=== PATIENT | male | born 1945 | race Two or more races ===

== ENCOUNTER 2024-09-01 14:31 | Inpatient (IN) | payer MEDICARE, SELFPAY ==
[2024-09-01] VITALS (20 sets, daily range): BP systolic 93–145; BP diastolic 53–81; PULSE 88–101; RESP 17–98; TEMP 36.8–37.8; O2SAT 93–99; BMI 28.1; BMI 27.8
--- NOTE | 2024-09-01 14:40 | PC.NURSE ---
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
--- NOTE | 2024-09-01 15:07 | XR_ITS ---
Examination: CT abdomen and pelvis without contrast. Coronal 3-D reconstructions. Sagittal 2-D reconstructions. Date and time of exam:September 01, 2024 1405 hours INDICATION: Fever abdominal pain today, renal failure patient undergoing peritoneal dialysis CTDI: vol (mGy): 8.75 DLP: (mGycm): 559 Technique: Axial images of the abdomen have been obtained, 3 mm slice thickness Intravenous contrast material has not been administered. Low dose protocols were performed. One or more of the following dose reduction techniques were used; automated exposure control, adjustment of the mA and/or KV according to patient size, use of iterative reconstruction technique. Findings: Moderate free fluid in the pelvis Liver is irregular in contour Spleen is not enlarged No gallstones No pancreatic mass Atrophic [place] kidneys No bowel obstruction Peritoneal dialysis catheter in the pelvis satisfactory position Contracted urinary bladder Transverse prostate dimension 3.9 cm IMPRESSION: Primary hepatocellular disease versus cirrhosis Atrophic [place] kidneys Moderate free fluid in the pelvis, likely secondary to the patient's peritoneal dialysis catheter No abdominal or pelvic abscess
--- NOTE | 2024-09-01 15:23 | PC.NURSE ---
DIALYSIS NURSING TALKING TO ON PHONE
--- NOTE | 2024-09-01 15:34 | PC.NURSE ---
PT MAKES VERY LITTLE URINE ESRD PROVIDED URINAL UA ORDERED
--- NOTE | 2024-09-01 15:41 | PC.NURSE ---
DIALYSIS NURSE IN WITH PATIENT
[2024-09-01 15:44] LABS: Lactate (Lactic Acid) 3.5 mMol/L (0.4-2.0)
[2024-09-01 15:45] LABS: Basophils % (Auto) 0 % (0-2.5); Eosinophils % (Auto) 0 % (0-10); Hematocrit 34.8 % (41.0-53.0); Hemoglobin 11.8 g/dL (13.5-16.0); Immature Granulocytes % (Auto) 0 % (0-0); Immature Granulocytes Auto 0.04 Thou/mm3 (0.00-0.00); Lymphocytes % (Auto) 10 % (10-50); Mean Corpuscular HGB Conc 33.9 g/dl (31.0-37.0); Mean Corpuscular Hemoglobin 28.4 pg (25.0-35.0); Mean Corpuscular Volume 84 fL (80-100); Monocytes # (Auto) 0.5 Thou/mm3 (0.0-0.8); Monocytes % (Auto) 5 % (0-12); Neutrophils # (Auto) 8.7 Thou/mm3 (1.8-7.7); Neutrophils % (Auto) 84 % (37-80); Nucleated Red Blood Cell % 0 /100 WBC (0); Platelet Count 152 Thou/mm3 (140-440); RDW Standard Deviation 43.8 fL (35.1-43.9); Red Blood Count 4.15 Miln/mm3 (4.50-5.90); White Blood Count 10.3 Thou/mm3 (3.8-10.6)
[2024-09-01 16:02] LABS: Partial Thromboplastin Time 26.2 Seconds (22.0-36.0); Prothrombin Time 11.2 Seconds (9.0-12.2)
--- NOTE | 2024-09-01 16:05 | PC.NURSE ---
DID NOT GET TEMP AT [address] WILL TAKE WHEN PT RETURNS
[2024-09-01 16:17] LABS: Alanine Aminotransferase 23 U/L (10-49); Albumin, Serum 3.3 gm/dL (3.4-4.8); Albumin/Globulin Ratio 0.9 (1.2-2.2); Alkaline Phosphatase 152 U/L (46-116); Anion Gap 11 (7-16); Aspartate Amino Transferase 24 U/L (0-34); BUN/Creatinine Ratio 4 Ratio (12-20); Bilirubin,Total 0.9 mg/dL (0.3-1.2); Blood Urea Nitrogen 30 mg/dL (9-23); Calcium 8.7 mg/dL (8.3-10.6); Calcium (Corrected) 9.3 mg/dL (8.5-10.1); Carbon Dioxide 25.6 mMol/L (20.0-31.0); Chloride 95 mMol/L (98-107); Creatinine (Component) 6.9 mg/dL (0.6-1.3); Estimated Creatinine Clearance 9.3 mL/min (>60); Globulin 3.5 gm/dL (2.3-3.5); Glucose 143 mg/dL (74-106); Osmolality,Calculated 272 (275-295); Potassium 4.9 mMol/L (3.4-5.1); Procalcitonin 2.14 ng/ml (0.0-0.49); Sodium 132 mMol/L (136-145); Total Protein 6.8 gm/dL (5.7-8.2); eGFR 8 See Note
[2024-09-01 16:31] LABS: Peritoneal Fluid WBC 14652 /cmm
[2024-09-01 16:42] LABS: Peritoneal Fluid Mononuclear 7 %; Peritoneal Fluid Polynuclear 93 %; RBC,Peritoneal Fluid 2000 /cmm
[2024-09-01 16:43] LABS: Peritoneal Fluid Appearance Cloudy; Peritoneal Fluid Color Colorless
[2024-09-01 16:49] LABS: Albumin, Peritoneal Fluid < 1.0 gm/dL; Amylase,Peritoneal Fluid < 20 IU/L; Glucose,Peritoneal Fluid 133 mg/dL; LDH,Peritoneal Fluid 55 IU/L; Protein Total,Peritoneal Fluid < 2 g/dL
--- NOTE | 2024-09-01 17:03 | PD.EDADULT ---
ED General RME/HPI General Chief complaint: Fever Stated complaint: FEVER/ WEAKNESS Time Seen by Provider: 09/01/24 14:58 Arrival date/time: 09/01/24 14:31 RME / HPI RME / HPI narrative: 78-year-old gentleman with a history of end-stage renal disease on peritoneal dialysis who presents with fever and abdominal pain starting yesterday evening. He denies nausea vomiting or diarrhea. He denies sore throat, cough, or shortness of breath. Related Data Home Medications ?Medication ?Instructions ?Recorded ?Confirmed atorvastatin 10 mg tablet 10 mg PO QDAY 09/11/19 09/01/24 gabapentin 300 mg capsule 300 mg PO TID 09/11/19 09/01/24 insulin aspart U-100 100 unit/mL 1 sliding scale dose subcut 09/11/19 09/01/24 subcutaneous solution (Novolog USEASDIRECTD U-100 Insulin aspart) omeprazole 20 mg capsule,delayed 40 mg PO QDAY 09/11/19 09/01/24 release calcium acetate(phosphat bind) 667 1,334 mg PO TIDWMEAL 09/01/24 09/01/24 mg capsule carvedilol 6.25 mg tablet 6.25 mg PO Q12H 09/01/24 09/01/24 losartan 50 mg tablet (Cozaar) 50 mg PO QDAY 09/01/24 09/01/24 multi-vitamin no minerals 60 - 150 tab PO DAILY 09/01/24 09/01/24 tamsulosin 0.4 mg capsule (Flomax) 0.4 mg PO QDAY 09/01/24 09/01/24 tramadol 50 mg tablet 50 mg PO Q12H 09/01/24 09/01/24 Allergies Allergy/AdvReac Type Severity Reaction Status Date / Time No Known Allergies Allergy Verified 09/01/24 14:42 Review of Systems Review of Systems Systems Reviewed: All systems reviewed, normal except as documented ED Exam Narrative Physical exam: GENERAL APPEARANCE: AxOx4, generally well-appearing, no acute distress. HEENT: NC, AT. MMM. EOMI, clear conjunctiva, oropharynx clear. NECK: Supple without lymphadenopathy. No stiffness or restricted ROM. HEART: Normal rate and regular rhythm, normal S1/S1, no m/r/g LUNGS: CTAB, moving air well. No crackles or wheezes are heard. ABDOMEN: Soft, protuberant, distended, warm to touch with a mid abdominal peritoneal dialysis catheter that appears clean dry and intact, there is no dressing over the stoma, good bowel sounds heard. BACK: No midline C/T/L spine pain or deformity, No CVAT, no obvious deformity. EXTREMITIES: Without cyanosis, clubbing or edema. MUSCULOSKELETAL: FROM of all major joints, no chest tenderness NEUROLOGICAL: Grossly nonfocal. Alert and oriented, moving all 4 extremities. CN not formally tested but appear grossly intact. Observed to ambulate with normal gait. Skin: Warm and dry without any rash. Course Quality Measures none Orders Category Date Time Status Bedside COVID-19 Antigen Test NOW Care 09/01/24 16:51 Active Bedside Influenza A&B Antigen Test NOW Care 09/01/24 16:51 Active COVID-19 Screening Questionnaire NOW Care 09/01/24 17:06 Active Decision to Admit X1 Care 09/01/24 17:06 Active Miscellaneous Nursing Order NOW Care 09/01/24 15:[address] abdomen pelvis wo con Stat Exams 09/01/24 15:07 Completed Albumin, Peritoneal Fluid Routine Lab 09/01/24 15:54 Completed Amylase,Peritoneal Fluid Routine Lab 09/01/24 15:54 Completed Blood Culture (Lab) Stat Lab 09/01/24 17:06 Ordered Body Fld Cult w Caty & Gram St Routine Lab 09/01/24 15:54 Received CBC Stat Lab 09/01/24 15:30 Completed CMP [Comprehensive Metabolic Panel] Stat Lab 09/01/24 15:30 Completed Glucose,Peritoneal Fluid Routine Lab 09/01/24 15:54 Completed LDH,Peritoneal Fluid Routine Lab 09/01/24 15:54 Completed Lactate (Lactic Acid) Stat Lab 09/01/24 15:30 Results Partial Thromboplastin Time Stat Lab 09/01/24 15:30 Completed Peritoneal Cell Cnt/Diff Routine Lab 09/01/24 15:54 Completed Procalcitonin Stat Lab 09/01/24 15:30 Completed Protein Total,Peritoneal Fluid Routine Lab 09/01/24 15:54 Completed Prothrombin Time with INR Stat Lab 09/01/24 15:30 Completed Urinalysis Stat Lab 09/01/24 15:06 Ordered cefTRIAXone/D5w 1gm IV premix [Rocephin/D5w 1gm IV Med 09/01/24 17:00 Active premix] 50 ml IV X1 cefTRIAXone/D5w 1gm IV premix [Rocephin/D5w 1gm IV Med 09/01/24 17:02 Active premix] 50 ml IV X1 Vital Signs Vital signs: Vital Signs Temperature 100.0 F 09/01/24 14:42 Pulse Rate 97 09/01/24 14:42 Respiratory Rate 20 09/01/24 14:42 Blood Pressure 145/72 H 09/01/24 14:42 Pulse Oximetry (%) 95 09/01/24 14:42 Oxygen Delivery Method Room Air 09/01/24 14:42 [facility] Patient data External records reviewed:: [facility] previous records Clinical information provided by:: patient Social determinants that could affect healthcare access:: none Patient has the following chronic illnesses:: ESRD How is presenting disease/condition affected by chronic disease/condition?: exacerbated by Evaluation data The following diagnostics were reviewed and interpreted by me:: lab results and radiology exam(s) Lab and/or radiology exams considered but not ordered:: none Interpretation Summary: As per narrative Medications Medications considered but not ordered:: None Medication administrations:: Medication Administration History Ceftriaxone Sodium/Dextrose (Rocephin/D5w 1gm Iv Premix) 50 mls @ 100 mls/hr IV X1 ONE Stop: 09/01/24 17:29 Ceftriaxone Sodium/Dextrose (Rocephin/D5w 1gm Iv Premix) 50 mls @ 100 mls/hr IV X1 ONE Stop: 09/01/24 17:31 Above Consultations Consultation(s) initiated? (list below): No Diagnosis Differential Diagnosis ED Complaint MDM: Bacterial peritonitis, diverticulitis, acute cholecystitis, Most likely diagnosis given after review of the tests above:: See below Admission Indicated Admission indicated?: indicated Explain why admission is indicated or not indicated:: None Admission Request Was there a request for admission?: Yes Admission Attestation Admission request attestation: Discussed case with [Dr. Mishra] from Hospitalist service regarding admission. Discussed patients ED course, exam findings, labs, and radiology results. The Hospitalist agrees to accept the patient for admission. Disposition Plan Disposition Plan: Admit Medical Decision Making Differential Diagnosis Differential Diagnosis: Bacterial peritonitis, diverticulitis, acute cholecystitis, Lab Data 09/01/24 15:30 09/01/24 15:30 Labs: Lab Results 09/01/24 09/01/24 Range/Units 15:30 15:54 WBC 10.3 (3.8-10.6) Thou/mm3 RBC 4.15 L (4.50-5.90) Miln/mm3 Hgb 11.8 L (13.5-16.0) g/dL Hct 34.8 L (41.0-53.0) % MCV 84 (80-100) fL MCH 28.4 (25.0-35.0) pg MCHC 33.9 (31.0-37.0) g/dl RDW Std Deviation 43.8 (35.1-43.9) fL Plt Count 152 (140-440) Thou/mm3 Neut % (Auto) 84 H (37-80) % Lymph % (Auto) 10 (10-50) % [place] % (Auto) 5 (0-12) % Eos % (Auto) 0 (0-10) % Baso % (Auto) 0 (0-2.5) % Neut # (Auto) 8.7 H (1.8-7.7) Thou/mm3 Lymph # (Auto) 1.0 (1.0-4.8) Thou/mm3 Republic # (Auto) 0.5 (0.0-0.8) Thou/mm3 Eos # (Auto) 0.0 (0.0-0.5) Thou/mm3 Baso # (Auto) 0.0 (0.0-0.2) Thou/mm3 Immature Gran # (Auto) 0.04 H (0.00-0.00) Thou/mm3 Absolute Nucleated RBC 0.00 (0.00-0.00) Thou/mm3 Immature Gran % 0 (0-0) % Nucleated RBC % 0 (0) /100 WBC PT 11.2 (9.0-12.2) Seconds INR 1.0 (0.9-1.3) APTT 26.2 (22.0-36.0) Seconds Sodium 132 L (136-145) mMol/L Potassium 4.9 (3.4-5.1) mMol/L Chloride 95 L (98-107) mMol/L Carbon Dioxide 25.6 (20.0-31.0) mMol/L Anion Gap 11 (7-16) BUN 30 H (9-23) mg/dL Creatinine 6.9 H* (0.6-1.3) mg/dL Estim Creat Clear Calc 9.3 L (>60) mL/min eGFR 8 L* (60 - ) See Note BUN/Creatinine Ratio 4 L (12-20) Ratio Glucose 143 H (74-106) mg/dL Calculated Osmolality 272 L (275-295) Lactic Acid 3.5 H (0.4-2.0) mMol/L Calcium 8.7 (8.3-10.6) mg/dL Corrected Calcium 9.3 (8.5-10.1) mg/dL Total Bilirubin 0.9 (0.3-1.2) mg/dL AST 24 (0-34) U/L ALT 23 (10-49) U/L Alkaline Phosphatase 152 H (46-116) U/L Total Protein 6.8 (5.7-8.2) gm/dL Albumin 3.3 L (3.4-4.8) gm/dL Globulin 3.5 (2.3-3.5) gm/dL Albumin/Globulin Ratio 0.9 L (1.2-2.2) Procalcitonin 2.14 H (0.0-0.49) ng/ml Peritoneal Color Colorless Peritoneal Appearance Cloudy Peritoneal WBC 11191 /cmm Peritoneal RBC 2000 /cmm Periton Polynucl WBCs 93 % Periton Mononucl WBCs 7 % Peritoneal Tot Protein < 2 g/dL Peritoneal Albumin < 1.0 gm/dL Peritoneal LDH 55 IU/L Peritoneal Glucose 133 mg/dL Peritoneal Amylase < 20 IU/L Discharge Plan Plan Patient Disposition: Admit Acute Care w/in Hospital Prescriptions/Referrals Prescriptions/Med Rec: No Action atorvastatin 10 mg Tablet 10 mg PO QDAY insulin aspart U-100 [Novolog U-100 Insulin aspart] 100 unit/mL Solution 1 sliding scale dose SUBCUT USEASDIRECTD gabapentin 300 mg Capsule 300 mg PO TID omeprazole 20 mg Capsule,Delayed Release(Dr/Ec) 40 mg PO QDAY calcium acetate(phosphat bind) 667 mg capsule 1,334 mg PO TIDWMEAL Patient Comments: take 2 capsules by mouth WITH MEALS AND 1 CAPSULE WITH SNACKS tramadol 50 mg tablet 50 mg PO Q12H tamsulosin [Flomax] 0.4 mg capsule 0.4 mg PO QDAY multi-vitamin no minerals 60 - 150 tab PO DAILY carvedilol 6.25 mg tablet 6.25 mg PO Q12H Rx Instructions: must administer with a meal/food losartan [Cozaar] 50 mg tablet 50 mg PO QDAY Referrals: No Primary/Family,Physician [Primary Care Provider] - In 1 week Problem List Clinical Impression: Peritonitis, Chronic renal failure Patient/Caregiver Discharge Instructions Print Language: Chadian Stand Alone Forms: Anais Award Info., Patient Portal Info Letter
--- NOTE | 2024-09-01 17:29 | PC.NURSE ---
hospitalist in to talk with pt
--- NOTE | 2024-09-01 18:06 | ESHP_ITS ---
"<Statement entered by Arya Spencer MD - 09/01/24 22:20> In summary, 78 years old male patient with significant medical history for ESRD (on PD, follows with Dr. Collado in [facility]), HLD, DM2 and neuropathy came to ED for abdominal pain, fever and chills. Patient denied having similar symptoms in the past, was last seen by his server cashier x2 days ago. In ED, labs were significants for elevated ProCal and lactic acid. Peritoneal fluid analysis indicated elevated WBC. Patient admitted for peritonitis. Wharf Tender Dr. Sinclair was consulted, patient scheduled for PD and administered peritoneal cefazolin and cefepime. Fluid analysis sent out for culture, will consider starting patient on fluconazole for prophylaxis. I discussed with and supervised the international specialist physician involved in the care of this patient. Patient assessment and plan was discussed with entire medicine team, including my attending. I agree with the assessment and plan as documented by international specialist doctor. Patient care was discussed with my attending physician Dr. Jennifer Spencer, PGY-2 Documentation for date of: 09/01/24 HPI History of Present Illness Chief complaint: Fever, diarrhea, abdominal pain History of present illness: HPI: Patient is Pakistani, Bienvenido and Romeo speaking. Patient is a 78-year-old male with past medical history significant for ESRD on PD since 2019 follows up with server cashier Dr. Collado in [place], primary hypertension, hyperlipidemia, insulin-dependent diabetes mellitus type 2 and diabetic neuropathy presenting with a chief complaint of fever, chills and diarrhea. Patient says that for the past 2 days he had a subjective fever. Early this morning he started to experience fever, chills and generalized abdominal pain. His fever was described as subjective with mild relief after Tylenol. He also had an associated 3 episodes of diarrhea. Described as watery, nonbloody. His abdominal pain he described as sudden onset, generalized, cramping and no associated aggravating or relieving factors. Denies any hematemesis, coffee-ground emesis, hematochezia, melena chest pain/shortness of breath. Of note patient denies any recent illness, sick contacts or recent travel. Patient also denies eating any outside food recently. Both he and his endorse that he only eats home-cooked food and he is a vegetarian. ED course: BP 104/53, P93, temp 98.5 F, RR 19, SpO2 98% on room air. Labs significant for Hb 11.8, HCT 34.8, NA 132, K4.9, BUN 58, CR 6.9, LA 3.5, Pro-Didier 2.14. Peritoneal fluid analysis significant for PMNs [address] completed on 09/01/2024 findings include: Primary hepatocellular disease, atrophic [place] kidneys, moderate free fluid in pelvis. No abdominal or pelvic abscess. In the ED patient received ceftriaxone 2 g IV x 1. Patient will be admitted for workup and management of likely PD catheter associated peritonitis. Wharf Tender, Dr. Sinclair consulted and is closely following the case. Appreciate recommendations. Review of Systems Review of Systems Narrative Review of Systems: GENERAL: Denies fever/chills or diaphoresis. HEENT: Denies headaches or visual changes. Denies discharge. Neuro: Denies unusual weakness or difficulty speaking. CARDIO: Denies chest pain or palpitations. PULM: Denies SOB, coughing or wheezing. GI: As above URO: Denies burning/itching/pain/urinary changes. MSK/EXT/SKIN: Denies joint/skeletal/muscle pain, issues/changes in upper or lower extremities, itchiness, or superficial pain. PSYCH: Cooperative, pleasant mood & affect. The rest of the review of systems is otherwise negative. Past Medical History Past Medical History Comments PMH COMMENT: Past medical history: ? ESRD on PD since 2018 ? Primary hypertension ? Insulin-dependent diabetes mellitus type 2 ? Diabetic neuropathy ? 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 Marital Status: with 1 Kid Tobacco use: Denies. Remote use in his 20s ETHO use: Denies. Remote use in his 20s Illicit drug use: Denies Social History Note: Lives with his son and . At baseline ambulates with a cane Exam Vital Signs Temp Pulse Resp BP Pulse Ox O2 Del Method 98.3 F 96 19 93/60 96 Aerosol Mask 09/01/24 17:50 09/01/24 17:50 09/01/24 17:50 09/01/24 17:50 09/01/24 17:50 09/01/24 17:50 Narrative Exam Constitutional Alert, oriented x 3 and comfortable. Elderly male, obese HEENT Vision grossly intact. Patent nares. Trachea midline Respiratory Chest normal on inspection and clear auscultation bilaterally Cardiovascular S1 and S2 audible, RRR. No murmurs carotid bruit. No gross JVD. Abdominal Tense, distended, nontender to palpation in all quadrants, warm to touch, bowel sounds auscultated Genitourinary No bladder tenderness, no flank pain. Normal to palpation Musculoskeletal Extremities tone within normal limits. No LE edema. Neurological CN II - XII grossly intact. Extremity motor and sensation grossly intact. Skin Warm, dry and intact. No apparent lesions. Psychiatric Patient has good affect, is cooperative Results: Labs 09/02/24 04:50 09/02/24 04:50 Labs: Short CBC 09/01/24 Range/Units 15:30 WBC 10.3 (3.8-10.6) Thou/mm3 Hgb 11.8 L (13.5-16.0) g/dL Hct 34.8 L (41.0-53.0) % Plt Count 152 (140-440) Thou/mm3 BMP 09/01/24 15:30 Sodium 132 L Potassium 4.9 Chloride 95 L Carbon Dioxide 25.6 BUN 30 H Creatinine 6.9 H* Glucose 143 H Calcium 8.7 Liver Function 09/01/24 Range/Units 15:30 Total Bilirubin 0.9 (0.3-1.2) mg/dL AST 24 (0-34) U/L ALT 23 (10-49) U/L Alkaline Phosphatase 152 H (46-116) U/L Albumin 3.3 L (3.4-4.8) gm/dL Quality Measures Quality Measures none Advance care planning discussed with:: patient Medications Home Medications and Allergies Home Medications ?Medication ?Instructions ?Recorded ?Confirmed ?Type atorvastatin 10 mg tablet 10 mg PO QDAY 09/11/1909/01 History gabapentin 300 mg capsule 300 mg PO TID 09/11/1909/01 History insulin aspart U-100 100 unit/mL 1 sliding scale dose subcut 09/11/19 09/01/24 History subcutaneous solution (Novolog USEASDIRECTD U-100 Insulin aspart) omeprazole 20 mg capsule,delayed 40 mg PO QDAY 0 09/01/24 History release calcium acetate(phosphat bind) 667 1,334 mg PO TIDWMEA L 09/01/24 09/01/24 History mg capsule carvedilol 6.25 mg tablet 6.25 mg PO Q12H 09/01/2412/19 History losartan 50 mg tablet (Cozaar) 50 mg PO QDAY 09/01/24 09/01/24 History multi-vitamin no minerals 60 - 150 tab PO DAILY 09/01/24 History tamsulosin 0.4 mg capsule (Flomax) 0.4 mg PO QDAY 12/1909/01/24 History tramadol 50 mg tablet 50 mg PO Q12H 09/01/2409/01 History Allergies Allergy/AdvReac Type Severity Reaction Status Date / Time No Known Allergies Allergy Verified 09/01/24 14:42 Visit Medications Acetaminophen (Acetaminophen 325 Mg Tablet) 650 mg PO Q6H PRN PRN Reason: Fever >100.3 or pain Stop: 10/01/24 17:54 Hydrocodone Bitart/Acetaminophen (Hydrocodone/Apap 5/325 Tablet) 1 tab PO Q4HR PRN PRN Reason: PAIN SCALE 4-10(Mod-Sev Stop: 09/06/24 17:58 Albuterol/Ipratropium (Albuterol/Ipratropium (Duoneb) Rt Jessenia 3 Ml Nebu) 3 ml INH Q4HR PRN PRN Reason: SHORTNESS OF BREATH OR WHEEZE Stop: 10/01/24 17:54 Heparin Sodium (Porcine) (Heparin Sod Inj 5000 Unit/Ml Vial) 5,000 unit SC BID BRIANA Stop: 09/15/24 20:59 Ondansetron HCl (Ondansetron Inj 2 Mg/Ml Inj 2 Ml) 4 mg IV Q6H PRN; Protocol PRN Reason: NAUSEA OR VOMITING Stop: 10/01/24 17:58 Pantoprazole Sodium (Pantoprazole Inj 40 Mg Vial) 40 mg IVP QDAY BRIANA Stop: 10/01/24 17:59 Discontinued Medications Ceftriaxone Sodium/Dextrose (Rocephin/D5w 1gm Iv Premix) 50 mls @ 100 mls/hr IV X1 ONE Stop: 09/01/24 17:29 Ceftriaxone Sodium/Dextrose (Rocephin/D5w 1gm Iv Premix) 50 mls @ 100 mls/hr IV X1 ONE Stop: 09/01/24 17:31 Assessment & Plan Plan Patient is a 78-year-old male with past medical history significant for ESRD on PD since 2019 follows up with server cashier Dr. Collado in [place], primary hypertension, hyperlipidemia, insulin-dependent diabetes mellitus type 2 and diabetic neuropathy presenting with a chief complaint of fever, chills and diarrhea. Patient will be admitted for workup and management of likely PD catheter associated peritonitis. 1. Likely PD catheter associated peritonitis 2. ESRD on peritoneal dialysis since 2019 Patient presented with 2-day history of fever, chills associated with vomiting and abdominal pain. On exam patient's abdomen grossly distended and warm to palpation. Abdomen pelvis CT completed on 09/01/2024 findings include: Primary hepatocellular disease, atrophic [place] kidneys, moderate free fluid in pelvis. No abdominal or pelvic abscess. Peritoneal fluid analysis revealed PMNs >13,000 Patient received ceftriaxone 2 g IV x 1 in the ED Plan: ? Regular diet ? Daily peritoneal fluid analysis to assess PMNs, LDH, albumin, culture ? Wharf Tender, Dr Sinclair consulted and closely following the case. Appreciate recommendations 3. Primary hypertension 4. Hyperlipidemia On admission BP 104/53 No lipid panel seen on file Plan: ? Antihypertensives on hold for now in light of low BP ? Lipid panel, HbA1c and TSH ordered. 5. Insulin-dependent diabetes mellitus type 2 Patient on insulin 70/30 at home, unsure of dose Plan: ? Sliding scale insulin to cover for any blood glucose spikes Health maintenance: Disposition: Pending nephro recs. Daily peritoneal fluid analysis and likely PD directed antibiotics with washout. Diet: Regular Lines: pIVs GI Prophylaxis: Pantoprazole Thrombo Prophylaxis: Heparin 5000 U SC twice daily Code status: DNR Plan of care discussed with Attending Dr. Rodriguez and PGY2 Dr. Tj Dickerson MD PGY 1 Attending Provider Attestation/Addendum I have discussed and was present for the essential components of the history, physical examination, diagnosis, and treatment plan with the resident. I agree with the patient's care as documented by the resident and amended herein by me. Ravi Rodriguez DO. Although this document has been carefully reviewed, there may still be some phonetic and other typographical errors. These errors are purely grammatical due to imperfections in the software program and should not be construed in any way to compromise the substance of the patient's medical care during this visit."
--- NOTE | 2024-09-01 18:16 | PC.NURSE ---
per dr rivas stop renal diet give regular diet due to b/p being low
[2024-09-01] MEDS: PANTOPRAZOLE INJ 40 MG VIAL IVP (18:26)
[2024-09-01] MEDS: cefTRIAXone/D5w 1gm IV premix 50 ML IV ×2 (18:28→18:55)
[2024-09-01 18:37] LABS: Reflex Lactate? Y
[2024-09-01 19:08] LABS: Cardiac Risk Estimate 3.6 RATIO (4.0-6.7); Cholesterol 112 mg/dL (132-200); HDL Cholesterol 31 mg/dL (40-60); LDL Cholesterol,Calculated 50 mg/dL (0-130); Triglycerides 155 mg/dL (30-150)
[2024-09-01 19:20] LABS: Lactic Acid, 3 HR 3.5 mMol/L (0.4-2.0)
[2024-09-01 19:48] LABS: Hepatitis A Antibody IgM Non Reactive (Non React); Hepatitis B Core Antibody IgM Non Reactive (Non React); Hepatitis B Surface Antigen Non Reactive (Non React); Hepatitis C Antibody Non Reactive (Non React)
[2024-09-01] MEDS: ceFAZolin 1 GM, Sterile Water 2.5 ML PERIT (20:23)
[2024-09-01] MEDS: HEPARIN SOD INJ 1000 UNIT/ML VIAL 10 ML 3000 UNIT STFIELD (20:25)
[2024-09-01] MEDS: CEFEPIME INJ 1 GM in SODIUM CHLORIDE 0.9% (P) 50 ML 100 GM PERIT (20:29)
--- NOTE | 2024-09-01 20:30 | PC.NURSE ---
report called to Aissatou MUNROE. PT taken to rm [id number]
[2024-09-01] MEDS: HEPARIN SOD INJ 5000 UNIT/ML VIAL SC (20:57)
[2024-09-02] VITALS (10 sets, daily range): BP systolic 93–127; BP diastolic 46–73; PULSE 68–103; RESP 16–18; TEMP 36.4–37.1; O2SAT 94–97; BMI 27.7
[2024-09-02 00:42] LABS: HIV (1&2) Antibody Rapid Non-Reactive
--- NOTE | 2024-09-02 00:57 | XR_ITS ---
Examination: Abdomen AP single view Technique: AP portable supine abdomen, single view Exam date and time: September 02, 2024 0105 hours INDICATIONS: Abdominal distention today. FINDINGS: Catheter overlying the pelvis which may represent a peritoneal dialysis catheter Relatively gasless abdomen These films do not include the hemidiaphragm IMPRESSION: Relatively gasless abdomen
[2024-09-02] MEDS: MG HYD/AL HYD/SIME (Maalox Reg) SUSP 30 ML UDC PO (01:30)
--- NOTE | 2024-09-02 01:57 | PC.NURSE ---
patient c/o abdominal pain, abdomen distended and firm. Patient is currently on the peritoneal dialysis. Patient also c/o SOB, feeling like he can't breath, vital signs taken, BP 96/64 O2 100% on RA, HR 98, RR 20. Called Dr. Beard, came at bedside to assess the patient, patient feels full, has not had a bowel movement in 3 days, KUB ordered, Maalox ordered.
--- NOTE | 2024-09-02 02:19 | PC.NURSE ---
patient still has no relief of gas, called Dr. Beard to see patient at bedside. Informed that KUB was done. No new orders received.
[2024-09-02] MEDS: ACETAMINOPHEN 325 MG TABLET 650 MG PO (02:40)
--- NOTE | 2024-09-02 02:44 | PC.NURSE ---
Dr. Beard at bedside to assess the patient.
[2024-09-02] MEDS: HYDROcodone/APAP 5/325 TABLET 1 TAB PO (05:42)
[2024-09-02 05:58] LABS: Basophils % (Auto) 0 % (0-2.5); Eosinophils % (Auto) 0 % (0-10); Hematocrit 34.5 % (41.0-53.0); Hemoglobin 11.5 g/dL (13.5-16.0); Immature Granulocytes % (Auto) 0 % (0-0); Immature Granulocytes Auto 0.04 Thou/mm3 (0.00-0.00); Lymphocytes # (Auto) 1.6 Thou/mm3 (1.0-4.8); Lymphocytes % (Auto) 15 % (10-50); Mean Corpuscular HGB Conc 33.3 g/dl (31.0-37.0); Mean Corpuscular Hemoglobin 28.7 pg (25.0-35.0); Mean Corpuscular Volume 86 fL (80-100); Monocytes # (Auto) 0.6 Thou/mm3 (0.0-0.8); Monocytes % (Auto) 6 % (0-12); Neutrophils # (Auto) 8.3 Thou/mm3 (1.8-7.7); Neutrophils % (Auto) 78 % (37-80); Nucleated Red Blood Cell % 0 /100 WBC (0); Platelet Count 147 Thou/mm3 (140-440); RDW Standard Deviation 45.3 fL (35.1-43.9); Red Blood Count 4.01 Miln/mm3 (4.50-5.90); White Blood Count 10.6 Thou/mm3 (3.8-10.6)
[2024-09-02 06:22] LABS: Glucose Estimated Average 217 mg/dL (80-131); Hemoglobin A1C 9.2 % Hgb (4.8-6.0)
[2024-09-02 07:43] LABS: Anion Gap 13 (7-16); BUN/Creatinine Ratio 5 Ratio (12-20); Blood Urea Nitrogen 32 mg/dL (9-23); Calcium 8.8 mg/dL (8.3-10.6); Carbon Dioxide 24.5 mMol/L (20.0-31.0); Chloride 92 mMol/L (98-107); Creatinine (Component) 6.8 mg/dL (0.6-1.3); Estimated Creatinine Clearance 9.4 mL/min (>60); Magnesium 1.2 mg/dL (1.6-2.6); Osmolality,Calculated 283 (275-295); Phosphorous 3.5 mg/dL (2.4-5.1); Potassium 4.4 mMol/L (3.4-5.1); Sodium 129 mMol/L (136-145); Thyroid Stimulating Hormone 2.66 uIU/mL (0.55-4.78); eGFR 8 See Note
[2024-09-02 07:44] LABS: Glucose 422 mg/dL (74-106)
[2024-09-02] MEDS: INSULIN LISPRO (AdmeLOG) 1 UNIT/0.01 ML UNIT SC ×3 (07:50→17:34)
--- NOTE | 2024-09-02 08:00 | PC.NURSE ---
Lab called and informed this nurse, patient's sugar was 422. Bedside glucose check and it was 363. MD notified, ordered to give insulin sliding scale per protocol. Five (5) units lispro given.
[2024-09-02] MEDS: TAMSULOSIN HCL 0.4 MG CAPSULE PO (08:23)
[2024-09-02] MEDS: ATORVASTATIN CALCIUM 10 MG TABLET PO (08:23)
[2024-09-02] MEDS: PANTOPRAZOLE INJ 40 MG VIAL IVP (08:23)
[2024-09-02] MEDS: HEPARIN SOD INJ 5000 UNIT/ML VIAL SC ×2 (08:23→20:35)
[2024-09-02] MEDS: traMADol HCL 50 MG TABLET PO ×2 (09:21→20:55)
[2024-09-02] MEDS: Magnesium Sulfate 4 GM Ivpb 4 GM/50 ML BAG IV (09:21)
[2024-09-02] MEDS: INSULIN LISPRO (AdmeLOG) 1 UNIT/0.01 ML UNIT 5 UNIT SC (09:22)
--- NOTE | 2024-09-02 09:32 | ESPR_ITS ---
<Statement entered by Arya Spencer MD - 09/02/24 20:51> Patient underwent PD last night with 3L fluid out. Lactic acid initially uptrended to 4, was given 500cc bolous fluid. We will continue current management with PD+Cefepime and Cefazolin. Series of peritoneal fluid analysis ordered. I discussed with and supervised the pharmacy grad intern physician involved in the care of this patient. Patient assessment and plan was discussed with entire medicine team, including my attending. I agree with the assessment and plan as documented by pharmacy grad intern doctor. Patient care was discussed with my attending physician Dr. Jennifer Spencer, PGY-2 Documentation for date of: 09/02/24 Subjective Subjective Interval history: Patient was seen and examined at bedside this AM. No acute exents overnight. Patient tolerating diet, adequate urine output and mentation is at baseline. Patient endorses improvement of nausea and no further episodes of chills/fever. Still complains of generalized abdominal pain. Last night patient had peritoneal dialysis with 3 L of fluid removal. Also had peritoneal dialysis catheter directed antibiotics with cefazolin and cefepime as per nephrology recommendations. Patient scheduled for another session tonight at 7 PM with repeat dialysate fluid culture and cell count. Patient's lactic acid up trended to 4 from 3.5 on admission. Will give 500 cc normal saline IVF bolus. Nephrology, Dr. Sinclair consulted and closely following the case. Appreciate recommendations Exam Vital Signs Temp Pulse Resp BP Pulse Ox O2 Del Method 97.6 F 68 16 116/59 L 97 Room Air 09/02/24 08:00 09/02/24 08:00 09/02/24 08:00 09/02/24 08:00 09/02/24 08:00 09/02/24 08:00 Narrative Exam Constitutional Alert, oriented x 3 and comfortable. Elderly male, obese HEENT Vision grossly intact. Patent nares. Trachea midline Respiratory Chest normal on inspection and clear auscultation bilaterally Cardiovascular S1 and S2 audible, RRR. No murmurs carotid bruit. No gross JVD. Abdominal Tense, distended, tender to palpation in all quadrants, warm to touch, bowel sounds auscultated Genitourinary No bladder tenderness, no flank pain. Normal to palpation Musculoskeletal Extremities tone within normal limits. No LE edema. Neurological CN II - XII grossly intact. Extremity motor and sensation grossly intact. Skin Warm, dry and intact. No apparent lesions. Psychiatric Patient has good affect, is cooperative Objective Labs 09/02/24 04:50 09/02/24 04:50 Labs: Laboratory Results - last 24 hr 09/01/24 09/01/24 09/01/24 15:30 15:54 18:18 WBC 10.3 RBC 4.15 L Hgb 11.8 L Hct 34.8 L MCV 84 MCH 28.4 MCHC 33.9 RDW Std Deviation 43.8 Plt Count 152 Neut % (Auto) 84 H Lymph % (Auto) 10 Pershing % (Auto) 5 Eos % (Auto) 0 Baso % (Auto) 0 Neut # (Auto) 8.7 H Lymph # (Auto) 1.0 Pershing # (Auto) 0.5 Eos # (Auto) 0.0 Baso # (Auto) 0.0 Immature Gran # (Auto) 0.04 H Absolute Nucleated RBC 0.00 Immature Gran % 0 Nucleated RBC % 0 PT 11.2 INR 1.0 APTT 26.2 Sodium 132 L Potassium 4.9 Chloride 95 L Carbon Dioxide 25.6 Anion Gap 11 BUN 30 H Creatinine 6.9 H* Estim Creat Clear Calc 9.3 L eGFR 8 L* BUN/Creatinine Ratio 4 L Glucose [address] Glu mg/dL Hemoglobin A1c Calculated Osmolality 272 L Lactic Acid 3.5 H Calcium 8.7 Corrected Calcium 9.3 Phosphorus Magnesium Total Bilirubin 0.9 AST 24 ALT 23 Alkaline Phosphatase 152 H Total Protein 6.8 Albumin 3.3 L Globulin 3.5 Albumin/Globulin Ratio 0.9 L Triglycerides 155 H Cholesterol 112 L LDL Cholesterol, Calc 50 HDL Cholesterol 31 L Cholesterol/HDL Ratio 3.6 L Procalcitonin 2.14 H TSH Peritoneal Color Colorless Peritoneal Appearance Cloudy Peritoneal WBC 96214 Peritoneal RBC 2000 Periton Polynucl WBCs 93 Periton Mononucl WBCs 7 Peritoneal Tot Protein < 2 Peritoneal Albumin < 1.0 Peritoneal LDH 55 Peritoneal Glucose 133 Peritoneal Amylase < 20 Hepatitis A IgM Ab Non Reactive Hep Bs Antigen Non Reactive Hep B Core IgM Ab Non Reactive Hepatitis C Antibody Non Reactive HIV 1&2 Antibody Rapid Non-Reactive 09/01/24 09/02/24 19:02 04:50 WBC 10.6 RBC 4.01 L Hgb 11.5 L Hct 34.5 L MCV 86 MCH 28.7 MCHC 33.3 RDW Std Deviation 45.3 H Plt Count 147 Neut % (Auto) 78 Lymph % (Auto) 15 Pershing % (Auto) 6 Eos % (Auto) 0 Baso % (Auto) 0 Neut # (Auto) 8.3 H Lymph # (Auto) 1.6 Pershing # (Auto) 0.6 Eos # (Auto) 0.0 Baso # (Auto) 0.0 Immature Gran # (Auto) 0.04 H Absolute Nucleated RBC 0.00 Immature Gran % 0 Nucleated RBC % 0 PT INR APTT Sodium 129 L Potassium 4.4 D Chloride 92 L Carbon Dioxide 24.5 Anion Gap 13 BUN 32 H Creatinine 6.8 H* Estim Creat Clear Calc 9.4 L eGFR 8 L* BUN/Creatinine Ratio 5 L Glucose 422 H* D Estimated Ave Glu mg/dL 217 H Hemoglobin A1c 9.2 H Calculated Osmolality 283 Lactic Acid 3.5 H Calcium 8.8 Corrected Calcium Phosphorus 3.5 Magnesium 1.2 L Total Bilirubin AST ALT Alkaline Phosphatase Total Protein Albumin Globulin Albumin/Globulin Ratio Triglycerides Cholesterol LDL Cholesterol, Calc HDL Cholesterol Cholesterol/HDL Ratio Procalcitonin TSH 2.66 Peritoneal Color Peritoneal Appearance Peritoneal WBC Peritoneal RBC Periton Polynucl WBCs Periton Mononucl WBCs Peritoneal Tot Protein Peritoneal Albumin Peritoneal LDH Peritoneal Glucose Peritoneal Amylase Hepatitis A IgM Ab Hep Bs Antigen Hep B Core IgM Ab Hepatitis C Antibody HIV 1&2 Antibody Rapid Quality Measures Quality Measures none Advance care planning discussed with:: patient Assessment & Plan Assessment Current Active Medications: Generic Name Dose Route Start Last Admin Trade Name Freq PRN Reason Stop Dose Admin Acetaminophen 650 mg 09/01/24 17:55 09/02/24 02:40 Acetaminophen 325 Mg Tablet PO 10/01/24 17:54 650 mg Q6H PRN Administration Fever >100.3 or pain Protocol Albuterol/Ipratropium 3 ml 09/01/24 17:55 Albuterol/Ipratropium (Duoneb) Rt Jessenia 3 Ml Nebu INH 10/01/24 17:54 Q4HR PRN SHORTNESS OF BREATH OR WHEEZE Atorvastatin Calcium 10 mg 09/02/24 09:00 09/02/24 08:23 Atorvastatin Calcium 10 Mg Tablet PO 10/02/24 08:59 10 mg QDAY BRIANA Administration Dextrose 50 ml 09/01/24 18:33 Dextrose 50%-Water Inj 50 Ml Syringe IV 10/01/24 18:32 Q15MIN PRN BG <50 OR BG <70 & pt unresponsive Gabapentin 300 mg 09/02/24 14:00 Gabapentin 300 Mg Capsule PO 10/02/24 13:59 TID BRIANA Glucagon 1 mg 09/01/24 18:33 Glucagon Inj 1 Mg Vial IM Q15MIN PRN BG <70, and no IV access Heparin Sodium (Porcine) 5,000 unit 09/01/24 21:00 09/02/24 08:23 Heparin Sod Inj 5000 Unit/Ml Vial SC 09/15/24 20:59 5,000 unit BID BRIANA Administration Magnesium Sulfate 4 gm in 50 mls @ 12.5 mls/hr 09/02/24 08:26 09/02/24 09:21 Magnesium Sulfate Ivpb IV 09/02/24 12:25 12.5 mls/hr X1 ONE Administration Insulin Glargine 10 unit 09/02/24 21:00 Insulin Glargine (Lantus) 5 Unit/0.05 Ml (Per 5 Units) SC 10/02/24 20:59 HS BRIANA Insulin Human Lispro 0 unit 09/02/24 07:30 09/02/24 07:50 Insulin Lispro (Admelog) 1 Unit/0.01 Ml Unit SC 10/02/24 07:29 1 unit AC BRIANA Administration Protocol Ondansetron HCl 4 mg 09/01/24 17:59 Ondansetron Inj 2 Mg/Ml Inj 2 Ml IV 10/01/24 17:58 Q6H PRN NAUSEA OR VOMITING Protocol Pantoprazole Sodium 40 mg 09/01/24 18:00 09/02/24 08:23 Pantoprazole Inj 40 Mg Vial IVP 10/01/24 17:59 40 mg QDAY BRIANA Administration Tamsulosin HCl 0.4 mg 09/02/24 09:00 09/02/24 08:23 Tamsulosin Hcl 0.4 Mg Capsule PO 10/02/24 08:59 0.4 mg QDAY BRIANA Administration Tramadol HCl 50 mg 09/02/24 08:24 09/02/24 09:21 Tramadol Hcl 50 Mg Tablet PO 09/07/24 08:59 50 mg Q12HR PRN Administration PAIN SCALE 4-10(Mod-Sev Plan Patient is a 78-year-old male with past medical history significant for ESRD on PD since 2019 follows up with health outcomes liaison Dr. Collado in [place], primary hypertension, hyperlipidemia, insulin-dependent diabetes mellitus type 2 and diabetic neuropathy presenting with a chief complaint of fever, chills and diarrhea. Patient will be admitted for workup and management of likely PD catheter associated peritonitis. 1. Likely PD catheter associated peritonitis 2. ESRD on peritoneal dialysis since 2019 Patient presented with 2-day history of fever, chills associated with vomiting and abdominal pain. On exam patient's abdomen grossly distended and warm to palpation. Abdomen pelvis CT completed on 09/01/2024 findings include: Primary hepatocellular disease, atrophic [place] kidneys, moderate free fluid in pelvis. No abdominal or pelvic abscess. Peritoneal fluid analysis revealed PMNs >13,000 Patient received ceftriaxone 2 g IV x 1 in the ED Last night patient had peritoneal dialysis with 3 L of fluid removal. Also had peritoneal dialysis catheter directed antibiotics with cefazolin and cefepime as per nephrology recommendations. Patient scheduled for another session tonight at 7 PM with repeat dialysate fluid culture and cell coun Plan: ? Low consistent carb diet. ? Daily peritoneal fluid analysis to assess PMNs, culture - PD catheter directed antibiotics as per nephrology recommendations. ? Banking And Finance Instructor, Dr Sinclair consulted and closely following the case. Appreciate recommendations 3. Elevated lactic acid On admission lactic acid elevated at 3.5 up trended to 4 Plan: ? 500 cc normal saline IV fluid bolus. 4. Primary hypertension 5. Hyperlipidemia On admission BP 104/53. Currently BP 98/46 Triglycerides 155, cholesterol 112, LDL 50, HDL 31 Plan: ? Resumed home medication atorvastatin 10 Mg p.o. at bedtime ? Antihypertensives on hold for now in light of low BP 6. Insulin-dependent diabetes mellitus type 2 [9.2%] Patient on insulin 70/30 at home, unsure of dose [09/02/2024] HbA1c 9.2% This a.m. patient's blood glucose 363 and was given a total 10U insulin lispro SC x 1 Plan: ? Low consistent carb diet ? Started on insulin lispro 3U SC 3 times daily with meals ? Started on insulin glargine 10U SC at bedtime ? Sliding scale insulin to cover for any blood glucose spikes Health maintenance: Disposition: Peritoneal dialysis tonight with PD catheter directed antibiotics and repeat peritoneal dialysate cell count and culture. Diet: Regular Lines: pIVs GI Prophylaxis: Pantoprazole Thrombo Prophylaxis: Heparin 5000 U SC twice daily Code status: DNR Plan of care discussed with Attending Dr. Rodriguez and PGY2 Dr. Tj Dickerson MD PGY 1 Attending Provider Attestation/Addendum I have discussed and was present for the essential components of the history, physical examination, diagnosis, and treatment plan with the resident. I agree with the patient's care as documented by the resident and amended herein by me. Ravi Rodriguez, DO. Although this document has been carefully reviewed, there may still be some phonetic and other typographical errors. These errors are purely grammatical due to imperfections in the software program and should not be construed in any way to compromise the substance of the patient's medical care during this visit.
--- NOTE | 2024-09-02 10:00 | PC.NURSE ---
Lab called and informed this nurse that patient's lactic is 4. MD notified.
[2024-09-02] MEDS: SODIUM CHLORIDE 0.9% 500 ML 500 ML 999 ML IV (11:04)
[2024-09-02] MEDS: INSULIN LISPRO (AdmeLOG) 1 UNIT/0.01 ML UNIT 3 UNIT SC ×2 (11:19→17:35)
[2024-09-02 12:28] LABS: Reflex Lactate? Y
[2024-09-02] MEDS: GABAPENTIN 300 MG CAPSULE PO ×2 (13:29→20:32)
[2024-09-02 14:09] LABS: Band Neutrophils (Manual) 26 % (0-6); Basophils (Manual) 1 % (0-2); Lymphocytes (Manual) 12 % (20-44); Metamyelocytes (Manual) 4 % (0-0); Monocytes (Manual) 3 % (2-9); Myelocytes (Manual) 2 % (0-0); Neutrophils (Manual) 52 % (50-70)
--- NOTE | 2024-09-02 16:09 | PC.SS ---
SS met with patient and regarding his d/c plan.? Pt is alert/oriented.? Pt was admitted for Peritonitis.? Pt confirmed demographic and contact information is correct on facesheet.? Pt resides with [facility] Pt ambulates using a cane.? Pt is ok with all ADLs.? Patient?s pharmacy of choice is [facility].? Pt named his , Veronique Beard medical decision maker if he is unable.? SS provided pt with verbal options for d/c to home or SNF.? Patient?s choice is to return home upon d/c.? Pt established with peritoneal dialysis at home and his landscape laborer is Dr. Chakraborty in [place]. Pt states he is diabetic, has glucometer, and test strips at home.? explained pt followed up with PCP in June and usually every month.? SS received phone call from TERESE Le who informed SS pt is requesting wheelchair and commode.? Rey from PT is requesting pt d/c home with Home Health for PT. D/C plan:? Return home with Home Health Next of Kin:? Veronique Beard, son, phone# [phone] PCP:? Harry Jung from [facility] in [place] Address:? Correct on facesheet
[2024-09-02] MEDS: RINGERS LACTATED 1000 ML 1,000 ML 125 ML IV (16:58)
--- NOTE | 2024-09-02 17:44 | ESCONSULT_ITS ---
RE: DIANNA RANDALL : 1945 DATE OF CONSULTATION: 09/02/2024 REASON FOR REFERRAL: CCPD management. REFERRING PHYSICIAN: Dr. Dickerson HISTORY OF PRESENT ILLNESS: This patient is a 78-year-old gentleman with past medical history significant for type 2 diabetes, hypertension, and ESRD, on CCPD since 2019, who presented to emergency room last night with abdominal pain and subjective fever. The patient's sociology adjunct instructor is Dr. Collado in [place]. Upon arrival, patient had blood test done, which revealed a lactic acid level of 3.5. His procalcitonin was likewise elevated at 2.14. The patient complains of abdominal pain for the past 2 days. Dialysis nurse took a sample of his PD fluid and it came out with a WBC of around 14,000. I was asked to manage his peritonitis and CCPD. Last night, we started him on IP cefepime and IP Ancef during his CCPD. Today, he said that he is doing much better and has no abdominal pain. His PD fluid culture showed gram negative diplococci. He said that he feels a little bit better since he was admitted. He currently denies any chest pain or shortness of breath. He said that he dialyzes for 9 hours using 1 bag of 2.5% PD solution and 1 bag of 1.5% PD solution. PAST MEDICAL HISTORY: ESRD, diabetes, and hypertension. CURRENT MEDICATIONS: 1. Acetaminophen. 2. Albuterol ipratropium. 3. Atorvastatin. 4. Gabapentin 300 mg p.o. t.i.d. 5. Lantus 10 units subcutaneously at bedtime. 6. Lispro sliding scale. 7. Protonix. 8. Tamsulosin 0.4 mg daily. 9. Ondansetron 4 mg p.o. q.6 p.r.n. PHYSICAL EXAMINATION: GENERAL: He is awake, alert, oriented, not in respiratory distress. VITAL SIGNS: Blood pressure of 98/46, heart rate of 82, temperature 97.8, and O2 saturation of 97% on room air. HEENT: Anicteric sclerae. Normocephalic. NECK: Supple. No JVD. CHEST AND LUNGS: Symmetrical expansion. Clear breath sounds. CARDIAC: Without murmur. ABDOMEN: Soft and nontender. EXTREMITIES: No edema. LABORATORY DATA: Hemoglobin 11.5, WBC 10,600, and platelet count 147,000. Sodium 129, potassium 4.4, chloride 92, CO2 of 24.5, BUN 32, creatinine 6.8, and glucose 422. Lactic acid 3. ASSESSMENT: 1. End-stage renal disease. 2. Peritonitis. 3. Elevated lactic acid level, possibly due to sepsis. 4. Type 2 diabetes. 5. History of hypertension. 6. Anemia, not requiring ASA. PLAN: Given that he is still having lactic acidosis, I will give him 1 L of lactated Ringer solution. I will continue his intraperitoneal cefepime and cefazolin for tonight. We will wait for the result of the sensitivity of the bacteria growing in both culture bottles and accurately provide him with precise antibiotic coverage. Continue monitoring his lactic acid level. Continue monitoring his electrolytes and replete as needed. DT: 16:51:48 TT: 17:42:00 Ref: [id number] - TID: [id number] MTDD
[2024-09-02] MEDS: ceFAZolin 1 GM, Sterile Water 2.5 ML PERIT (18:52)
[2024-09-02] MEDS: CEFEPIME INJ 1 GM VIAL PERIT (18:54)
[2024-09-02] MEDS: HEPARIN SOD INJ 1000 UNIT/ML VIAL 10 ML 3000 UNIT STFIELD (18:55)
--- NOTE | 2024-09-02 20:50 | PC.NURSE ---
called Dr. Moreira regarding patient having pain in his abdomen, patient was given tramadol about 20 minutes ago. Patient states it was when he starts the dialysis when he starts having the abdominal pain more severe, patient states he was not having as much pain during the day. Patient also requesting Dr. Beard to come see the patient.
[2024-09-02] MEDS: INSULIN GLARGINE (Lantus) 5 UNIT/0.05 ML (PER 5 UNITS) 10 UNIT SC (20:55)
--- NOTE | 2024-09-02 21:30 | PC.NURSE ---
Dr. Beard at bedside to assess the patient. New orders received for pain medication.
[2024-09-02] MEDS: oxyCODONE/APAP 5/325 TABLET 1 TAB PO (22:01)
[2024-09-03] VITALS (12 sets, daily range): BP systolic 88–114; BP diastolic 47–59; PULSE 62–94; RESP 13–97; TEMP 36.3–36.8; O2SAT 94–99
[2024-09-03] MEDS: ACETAMINOPHEN 325 MG TABLET 650 MG PO (02:24)
[2024-09-03] MEDS: oxyCODONE/APAP 5/325 TABLET 1 TAB PO (04:47)
[2024-09-03] MEDS: GABAPENTIN 300 MG CAPSULE PO ×3 (05:01→21:14)
[2024-09-03 05:44] LABS: Basophils % (Auto) 0 % (0-2.5); Eosinophils # (Auto) 0.1 Thou/mm3 (0.0-0.5); Eosinophils % (Auto) 2 % (0-10); Hematocrit 31.3 % (41.0-53.0); Hemoglobin 10.5 g/dL (13.5-16.0); Immature Granulocytes % (Auto) 1 % (0-0); Immature Granulocytes Auto 0.07 Thou/mm3 (0.00-0.00); Lymphocytes # (Auto) 1.1 Thou/mm3 (1.0-4.8); Lymphocytes % (Auto) 15 % (10-50); Mean Corpuscular HGB Conc 33.5 g/dl (31.0-37.0); Mean Corpuscular Hemoglobin 28.5 pg (25.0-35.0); Mean Corpuscular Volume 85 fL (80-100); Monocytes # (Auto) 0.4 Thou/mm3 (0.0-0.8); Monocytes % (Auto) 6 % (0-12); Neutrophils # (Auto) 5.8 Thou/mm3 (1.8-7.7); Neutrophils % (Auto) 77 % (37-80); Nucleated Red Blood Cell % 0 /100 WBC (0); Platelet Count 139 Thou/mm3 (140-440); RDW Standard Deviation 44.6 fL (35.1-43.9); Red Blood Count 3.69 Miln/mm3 (4.50-5.90); White Blood Count 7.5 Thou/mm3 (3.8-10.6)
[2024-09-03 06:22] LABS: Anion Gap 11 (7-16); BUN/Creatinine Ratio 6 Ratio (12-20); Blood Urea Nitrogen 38 mg/dL (9-23); Calcium 8.8 mg/dL (8.3-10.6); Carbon Dioxide 25.4 mMol/L (20.0-31.0); Chloride 90 mMol/L (98-107); Creatinine (Component) 6.6 mg/dL (0.6-1.3); Estimated Creatinine Clearance 9.7 mL/min (>60); Glucose 375 mg/dL (74-106); Magnesium 1.7 mg/dL (1.6-2.6); Osmolality,Calculated 277 (275-295); Phosphorous 2.6 mg/dL (2.4-5.1); Potassium 4.2 mMol/L (3.4-5.1); Sodium 126 mMol/L (136-145); eGFR 8 See Note
[2024-09-03] MEDS: INSULIN LISPRO (AdmeLOG) 1 UNIT/0.01 ML UNIT SC ×3 (07:56→17:56)
[2024-09-03] MEDS: INSULIN LISPRO (AdmeLOG) 1 UNIT/0.01 ML UNIT 3 UNIT SC (07:57)
[2024-09-03] MEDS: PANTOPRAZOLE INJ 40 MG VIAL IVP (08:53)
[2024-09-03] MEDS: ATORVASTATIN CALCIUM 10 MG TABLET PO (08:54)
[2024-09-03] MEDS: TAMSULOSIN HCL 0.4 MG CAPSULE PO (08:54)
[2024-09-03] MEDS: HEPARIN SOD INJ 5000 UNIT/ML VIAL SC ×2 (08:54→21:19)
--- NOTE | 2024-09-03 09:42 | PC.SS ---
Follow up note: Dr. Lam recommendations pending. Pt will return home with HH upon dc.
[2024-09-03] MEDS: INSULIN LISPRO (AdmeLOG) 1 UNIT/0.01 ML UNIT 5 UNIT SC ×2 (11:36→17:57)
--- NOTE | 2024-09-03 11:55 | ESPR_ITS ---
<Statement entered by Arya Spencer MD - 09/04/24 17:30> I discussed with and supervised the corporate strategy intern physician involved in the care of this patient. Patient assessment and plan was discussed with entire medicine team, including my attending. I agree with the assessment and plan as documented by corporate strategy intern doctor. Patient care was discussed with my attending physician Dr. Pebbles Spencer, PGY-2 Documentation for date of: 09/03/24 Subjective Subjective Interval history: Patient Romeo speaking and interview conducted with registered healthcare rack cleaner. Patient was seen and examined at bedside this AM with at bedside. Overnight patient had insomnia Patient tolerating diet, adequate urine output and mentation is at baseline. Patient complains of generalized abdominal pain. Last night patient had peritoneal dialysis with 3 L of fluid removal. Also had peritoneal dialysis catheter directed antibiotics with cefazolin and cefepime as per nephrology recommendations. Patient scheduled for another session tonight at 7 PM with repeat dialysate fluid culture and cell count. Fasting blood glucose 363. Will increase insulin glargine to 15 units at bedtime from 10 units at bedtime. Will increase pre-prandial glucose to 5 units 3 times daily with meals from 3 units 3 times daily with meals Nephrology, Dr. Sinclair consulted and closely following the case. Appreciate recommendations Exam Vital Signs Temp Pulse Resp BP Pulse Ox O2 Del Method 98.1 F 80 17 94/50 L 95 Room Air 09/03/24 08:00 09/03/24 08:00 09/03/24 08:00 09/03/24 08:00 09/03/24 08:00 09/03/24 08:00 Narrative Exam Constitutional Alert, oriented x 3 and comfortable. Elderly male, obese HEENT Vision grossly intact. Patent nares. Trachea midline Respiratory Chest normal on inspection and clear auscultation bilaterally Cardiovascular S1 and S2 audible, RRR. No murmurs carotid bruit. No gross JVD. Abdominal Tense, distended, tender to palpation in all quadrants, warm to touch, bowel sounds auscultated - improving Genitourinary No bladder tenderness, no flank pain. Normal to palpation Musculoskeletal Extremities tone within normal limits. No LE edema. Neurological CN II - XII grossly intact. Extremity motor and sensation grossly intact. Skin Warm, dry and intact. No apparent lesions. Psychiatric Patient has good affect, is cooperative Objective Labs 09/10/24 04:30 09/10/24 04:30 Labs: Laboratory Results - last 24 hr 09/02/24 09/02/24 09/03/24 04:50 12:35 05:11 WBC 7.5 RBC 3.69 L Hgb 10.5 L Hct 31.3 L MCV 85 MCH 28.5 MCHC 33.5 RDW Std Deviation 44.6 H Plt Count 139 L Neut % (Auto) 77 Lymph % (Auto) 15 [place] % (Auto) 6 Eos % (Auto) 2 Baso % (Auto) 0 Neut # (Auto) 5.8 Lymph # (Auto) 1.1 [place] # (Auto) 0.4 Eos # (Auto) 0.1 Baso # (Auto) 0.0 Immature Gran # (Auto) 0.07 H Absolute Nucleated RBC 0.00 Immature Gran % 1 H Neutrophils % (Manual) 52 Monocytes % (Manual) 3 Basophils % (Manual) 1 Metamyelocytes % 4 H Myelocytes % 2 H Nucleated RBC % 0 Band Neutrophils 26 H Lymphocytes (Manual) 12 L Sodium 126 L Potassium 4.2 Chloride 90 L Carbon Dioxide 25.4 Anion Gap 11 BUN 38 H Creatinine 6.6 H* Estim Creat Clear Calc 9.7 L eGFR 8 L* BUN/Creatinine Ratio 6 L Glucose 375 H Calculated Osmolality 277 Lactic Acid 3.0 H Calcium 8.8 Phosphorus 2.6 Magnesium 1.7 Quality Measures Quality Measures none Advance care planning discussed with:: patient and spouse Assessment & Plan Assessment Current Active Medications: Generic Name Dose Route Start Last Admin Trade Name Freq PRN Reason Stop Dose Admin Acetaminophen 650 mg 09/01/24 17:55 09/03/24 02:24 Acetaminophen 325 Mg Tablet PO 10/01/24 17:54 650 mg Q6H PRN Administration Fever >100.3 or pain Protocol Hydrocodone Bitart/Acetaminophen 1 tab 09/03/24 09:28 Hydrocodone/Apap 5/325 Tablet PO 09/08/24 09:27 Q4HR PRN BREAKTHROUGH PAIN Albuterol/Ipratropium 3 ml 09/01/24 17:55 Albuterol/Ipratropium (Duoneb) Rt [place] 3 Ml Nebu INH 10/01/24 17:54 Q4HR PRN SHORTNESS OF BREATH OR WHEEZE Atorvastatin Calcium 10 mg 09/02/24 09:00 09/03/24 08:54 Atorvastatin Calcium 10 Mg Tablet PO 10/02/24 08:59 10 mg QDAY BRIANA Administration Dextrose 50 ml 09/01/24 18:33 Dextrose 50%-Water Inj 50 Ml Syringe IV 10/01/24 18:32 Q15MIN PRN BG <50 OR BG <70 & pt unresponsive Gabapentin 300 mg 09/02/24 14:00 09/03/24 05:01 Gabapentin 300 Mg Capsule PO 10/02/24 13:59 300 mg TID BRIANA Administration Glucagon 1 mg 09/01/24 18:33 Glucagon Inj 1 Mg Vial IM Q15MIN PRN BG <70, and no IV access Heparin Sodium (Porcine) 5,000 unit 09/01/24 21:00 09/03/24 08:54 Heparin Sod Inj 5000 Unit/Ml Vial SC 09/15/24 20:59 5,000 unit BID BRIANA Administration Heparin Sodium (Porcine) 3,000 unit 09/02/24 19:30 09/02/24 18:55 Heparin Sod Inj 1000 Unit/Ml Vial 10 Ml [facility] 09/16/24 19:29 3,000 unit X1 PRN Administration to peritoneal dialysis jessenia. Lactated Ringer's 1,000 mls @ 125 mls/hr 09/02/24 16:52 09/03/24 03:51 Lactated Ringers IV 10/02/24 16:51 Not Given .Q8H [facility] Insulin Glargine 15 unit 09/03/24 21:00 Insulin Glargine (Lantus) 5 Unit/0.05 Ml (Per 5 Units) SC 10/03/24 20:59 HS [facility] Insulin Human Lispro 0 unit 09/02/24 07:30 09/03/24 11:35 Insulin Lispro (Admelog) 1 Unit/0.01 Ml Unit SC 10/02/24 07:29 3 unit AC BRIANA Administration Protocol Insulin Human Lispro 5 unit 09/03/24 12:00 09/03/24 11:36 Insulin Lispro (Admelog) 1 Unit/0.01 Ml Unit SC 10/03/24 11:59 5 unit TIDWM BRIANA Administration Ondansetron HCl 4 mg 09/01/24 17:59 Ondansetron Inj 2 Mg/Ml Inj 2 Ml IV 10/01/24 17:58 Q6H PRN NAUSEA OR VOMITING Protocol Pantoprazole Sodium 40 mg 09/01/24 18:00 09/03/24 08:53 Pantoprazole Inj 40 Mg Vial IVP 10/01/24 17:59 40 mg QDAY BRIANA Administration Tamsulosin HCl 0.4 mg 09/02/24 09:00 09/03/24 08:54 Tamsulosin Hcl 0.4 Mg Capsule PO 10/02/24 08:59 0.4 mg QDAY BRIANA Administration Tramadol HCl 50 mg 09/02/24 08:24 09/02/24 20:55 Tramadol Hcl 50 Mg Tablet PO 09/07/24 08:59 50 mg Q12HR PRN Administration PAIN SCALE 4-10(Mod-Sev Zolpidem Tartrate 2.5 mg 09/03/24 21:00 Zolpidem 5 Mg Tablet PO 10/03/24 20:59 HS BRIANA Plan Patient is a 78-year-old male with past medical history significant for ESRD on PD since 2019 follows up with rocket engine mechanic Dr. Collado in [place], primary hypertension, hyperlipidemia, insulin-dependent diabetes mellitus type 2 and diabetic neuropathy presenting with a chief complaint of fever, chills and diarrhea. Patient will be admitted for workup and management of likely PD catheter associated peritonitis. 1. Likely PD catheter associated peritonitis 2. ESRD on peritoneal dialysis since 2019 Patient presented with 2-day history of fever, chills associated with vomiting and abdominal pain. On exam patient's abdomen grossly distended and warm to palpation. Abdomen pelvis CT completed on 09/01/2024 findings include: Primary hepatocellular disease, atrophic [place] kidneys, moderate free fluid in pelvis. No abdominal or pelvic abscess. [09/01/24] Peritoneal fluid analysis revealed PMNs >13,000 [09/03/24] Peritoneal fluid analysis revealed PMNs >9159 Last night patient had peritoneal dialysis with 3 L of fluid removal. Also had peritoneal dialysis catheter directed antibiotics with cefazolin and cefepime as per nephrology recommendations. Patient scheduled for another session tonight at 7 PM with repeat dialysate fluid culture and cell count Plan: ? Low consistent carb diet. ? Daily peritoneal fluid analysis to assess PMNs, culture - PD catheter directed antibiotics as per nephrology recommendations. ? Steel Rule Die Maker, Dr Sinclair consulted and closely following the case. Appreciate recommendations 3. Elevated lactic acid - resolved On admission lactic acid elevated at 3.5 up trended to 4 ---> 1.7 Plan: ? 500 cc normal saline IV fluid bolus. 4. Primary hypertension 5. Hyperlipidemia On admission BP 104/53. Currently BP 98/46 Triglycerides 155, cholesterol 112, LDL 50, HDL 31 Plan: ? Continue home medication atorvastatin 10 Mg p.o. at bedtime ? Antihypertensives on hold for now in light of low BP 6. Insulin-dependent diabetes mellitus type 2 [9.2%] Patient on insulin 70/30 at home, unsure of dose [09/02/2024] HbA1c 9.2% Fasting blood glucose 363. Will increase insulin glargine to 15 units at bedtime from 10 units at bedtime. Will increase pre-prandial glucose to 5 units 3 times daily with meals from 3 units 3 times daily with meals Plan: ? Low consistent carb diet ? Increased insulin lispro to 5U SC 3 times daily with meals ? Increased insulin glargine to 15 units SC at bedtime ? Sliding scale insulin to cover for any blood glucose spikes 7. Euvolemic hyponatremia NA 126, OSM 277 Likely due to peritoneal dialysis fluid removal. 8. Insomnia Last night patient had difficulty falling asleep and could not sleep through the night. Plan: ? Will start patient on zolpidem 2.5 Mg p.o. at bedtime Health maintenance: Disposition: Peritoneal dialysis tonight with PD catheter directed antibiotics and repeat peritoneal dialysate cell count and culture. Diet: Regular Lines: pIVs GI Prophylaxis: Pantoprazole Thrombo Prophylaxis: Heparin 5000 U SC twice daily Code status: DNR Plan of care discussed with Attending Dr. Rodriguez and PGY2 Dr. Tj Dickerson MD PGY 1 Attending Provider Attestation/Addendum 78-year-old male with multiple comorbidities including hypertension, hyperlipidemia, type 2 diabetes mellitus with subsequent end-stage renal disease on peritoneal dialysis who presented to the ER with fevers found to have PD catheter associated peritonitis subsequently started on IV antibiotic therapy. Patient underwent paracentesis with findings of peritonitis and discussed case with rocket engine mechanic who recommended keeping the PD catheter in place and recommended IV antibiotic therapy. As of now, plan to continue IV antibiotic therapy and peritoneal dialysis per nephrology input.I reviewed above note and agree with findings and plans. I have also personally examined the patient with medicine team and went over assessment and plan with medical team including corporate strategy intern and resident physician.
[2024-09-03] MEDS: SODIUM CHLORIDE 0.9% 500 ML 500 ML 999 ML IV (12:12)
--- NOTE | 2024-09-03 12:29 | PC.NURSE ---
Patient's BP at 8AM was 84/44 on his right arms and 94/50 on his left arm. Patient is sitting on the bed, no complains of dizziness, chest pain or shortness of breath. MD notified.
--- NOTE | 2024-09-03 12:31 | PC.NURSE ---
Patient's BP at 12 noon was 80/49. MD notified. Bolus of NS fluid ordered and adminitered.
--- NOTE | 2024-09-03 14:38 | EKG_ITS ---
[facility] Test Date: 2024-09-03 Pat Name: DIANNA RANDALL Department: Room: S381-A Gender: Male Primary Montessori Teacher: MANDIERT : 1945 Requested By: Rober Mishra Order Number: [id number] Reading MD: Rober Mishra Measurements Intervals [place] Rate: 68 P: MA: QRS: 32 QRSD: 118 T: -81 QT: 428 QTc: 455 Interpretive Statements ATRIAL FIBRILLATION MODERATE INTRAVENTRICULAR CONDUCTION DELAY [110+ ms QRS DURATION] ST DEVIATION AND MODERATE T-WAVE ABNORMALITY, CONSIDER INFERIOR ISCHEMIA [-0.1+ mV T WAVE IN II/aVF] Compared to ECG 09/11/2019 09:58:53 Intraventricular conduction delay now present T-wave abnormality still present Possible ischemia still present /store/S0/[id number]/ecg/[id number].pdf
[2024-09-03 15:19] LABS: Peritoneal Fluid WBC 9443 /cmm
[2024-09-03 15:21] LABS: Peritoneal Fluid Appearance Cloudy; Peritoneal Fluid Color Straw; RBC,Peritoneal Fluid 2000 /cmm
[2024-09-03 15:22] LABS: Peritoneal Fluid Mononuclear 3 %; Peritoneal Fluid Polynuclear 97 %
[2024-09-03] MEDS: MIDODRINE 5 MG TABLET 10 MG PO ×2 (15:49→21:13)
[2024-09-03 16:03] LABS: Lactate (Lactic Acid) 1.7 mMol/L (0.4-2.0)
--- NOTE | 2024-09-03 18:29 | XR_ITS ---
Examination: Abdomen AP single view Technique: AP portable supine abdomen, single view Exam date and time: September 03, 2024 1847 hrs. Indications: Abdominal pain and distention today. Findings: Moderately air distended stomach No obstruction No free air Probable peritoneal dialysis catheter Impression: No obstruction, no free air
--- NOTE | 2024-09-03 19:39 | PC.NURSE ---
Patient's family stated that patient started to get confused. He does not know where he is. MD was notified. New orders were given.
[2024-09-03] MEDS: ceFAZolin 1 GM, Sterile Water 2.5 ML PERIT (20:54)
[2024-09-03] MEDS: CEFEPIME INJ 1 GM VIAL PERIT (20:56)
[2024-09-03] MEDS: HEPARIN SOD INJ 1000 UNIT/ML VIAL 10 ML 3000 UNIT IV (20:57)
[2024-09-03] MEDS: ZOLPIDEM 5 MG TABLET 2.5 MG PO (21:14)
[2024-09-03] MEDS: INSULIN GLARGINE (Lantus) 5 UNIT/0.05 ML (PER 5 UNITS) 15 UNIT SC (21:27)
[2024-09-04] VITALS (16 sets, daily range): BP systolic 88–170; BP diastolic 47–81; PULSE 61–87; RESP 18–96; TEMP 36.1–36.8; O2SAT 92–97; BMI 27.7
--- NOTE | 2024-09-04 00:15 | ESPR_ITS ---
RE: DIANNA RANDALL : 1945 DATE OF SERVICE: 09/03/2024 HISTORY OF PRESENT ILLNESS: This patient is a 78-year-old Romeo speaking gentleman with past medical history significant for type 2 diabetes, hypertension, ESRD, on CCPD since 2019, who presented to the emergency room on 09/01/2024 with abdominal pain, fever, and was found with peritonitis. His PD fluid is growing gram-negative rods with sensitivity still pending. The patient was started on IP cefepime and IP Ancef last night. According to the nurse, the patient was very uncomfortable last night and was complaining of abdominal pain. PD fluid remains cloudy. ALLERGIES: NO KNOWN DRUG ALLERGIES. CURRENT MEDICATIONS: 1. Acetaminophen. 2. Albuterol. 3. Atorvastatin. 4. Cefazolin 1 g IP. 5. Cefepime 1 g IV IP. 6. Gabapentin 300 mg p.o. t.i.d. 7. Hydrocodone. 8. Heparin 5000 units subcutaneously b.i.d. 9. Lantus 15 units subcutaneously at bedtime. 10 Ondansetron. 11. Oxycodone. 12. Midodrine 10 mg t.i.d. p.o. PHYSICAL EXAMINATION: Vital Signs: Blood pressure of 88/47, heart rate of 69. Did not perform any physical exam as this is a TeleHealth visit. Laboratory data: Hemoglobin 10.5 platelet count 139,000. potassium 4.2, CO2 of 25.4, BUN 38, creatinine 6.6, glucose 375, lactic acid 1.7. ASSESSMENT: 1. End-stage renal disease. 2. Gram-negative ziyad peritonitis. 3. Elevated lactic acid level, now improved, most likely secondary to sepsis. 4. Type 2 diabetes. 5. History of hypertension, now hypotension. 6. Anemia, not requiring ANNA. PLAN: I will continue his intraperitoneal cefepime and cefazolin tonight. We will use two 2.5% PD solution. Continue monitoring his electrolytes and should be repleted as needed. DT: 22:43:55 TT: 23:58:00 Ref: [id number] - TID: [id number] MTDD
[2024-09-04] MEDS: traMADol HCL 50 MG TABLET PO (03:59)
[2024-09-04 05:45] LABS: Basophils % (Auto) 0 % (0-2.5); Eosinophils # (Auto) 0.3 Thou/mm3 (0.0-0.5); Eosinophils % (Auto) 5 % (0-10); Hematocrit 30.6 % (41.0-53.0); Hemoglobin 10.1 g/dL (13.5-16.0); Immature Granulocytes % (Auto) 1 % (0-0); Immature Granulocytes Auto 0.04 Thou/mm3 (0.00-0.00); Lymphocytes % (Auto) 15 % (10-50); Mean Corpuscular Hemoglobin 28.2 pg (25.0-35.0); Mean Corpuscular Volume 86 fL (80-100); Monocytes # (Auto) 0.4 Thou/mm3 (0.0-0.8); Monocytes % (Auto) 6 % (0-12); Neutrophils # (Auto) 4.7 Thou/mm3 (1.8-7.7); Neutrophils % (Auto) 73 % (37-80); Nucleated Red Blood Cell % 0 /100 WBC (0); Platelet Count 132 Thou/mm3 (140-440); RDW Standard Deviation 45.6 fL (35.1-43.9); Red Blood Count 3.58 Miln/mm3 (4.50-5.90); White Blood Count 6.4 Thou/mm3 (3.8-10.6)
[2024-09-04 06:19] LABS: Anion Gap 9 (7-16); BUN/Creatinine Ratio 6 Ratio (12-20); Blood Urea Nitrogen 39 mg/dL (9-23); Calcium 8.6 mg/dL (8.3-10.6); Carbon Dioxide 25.7 mMol/L (20.0-31.0); Chloride 91 mMol/L (98-107); Creatinine (Component) 6.5 mg/dL (0.6-1.3); Estimated Creatinine Clearance 9.8 mL/min (>60); Magnesium 1.8 mg/dL (1.6-2.6); Osmolality,Calculated 279 (275-295); Phosphorous 2.9 mg/dL (2.4-5.1); Potassium 3.6 mMol/L (3.4-5.1); Sodium 126 mMol/L (136-145); eGFR 8 See Note
[2024-09-04 06:27] LABS: Glucose 410 mg/dL (74-106)
[2024-09-04] MEDS: MIDODRINE 5 MG TABLET 10 MG PO (07:31)
[2024-09-04] MEDS: GABAPENTIN 300 MG CAPSULE PO ×3 (07:31→21:26)
[2024-09-04] MEDS: INSULIN LISPRO (AdmeLOG) 1 UNIT/0.01 ML UNIT 5 UNIT SC ×3 (07:32→17:18)
[2024-09-04] MEDS: INSULIN LISPRO (AdmeLOG) 1 UNIT/0.01 ML UNIT SC ×3 (07:35→17:17)
[2024-09-04] MEDS: TAMSULOSIN HCL 0.4 MG CAPSULE PO (09:03)
[2024-09-04] MEDS: PANTOPRAZOLE INJ 40 MG VIAL IVP (09:03)
[2024-09-04] MEDS: ATORVASTATIN CALCIUM 10 MG TABLET PO (09:03)
[2024-09-04] MEDS: HEPARIN SOD INJ 5000 UNIT/ML VIAL SC ×2 (09:04→21:30)
[2024-09-04] MEDS: ONDANSETRON INJ 2 MG/ML INJ 2 ML 4 MG IV (15:52)
[2024-09-04] MEDS: SENNA/DOCUSATE SOD 1 TAB TABLET PO (17:06)
--- NOTE | 2024-09-04 19:51 | PD.RESPRO ---
Documentation for date of: 09/04/24 Subjective Subjective Interval history: Overnight patient with glucose of 425, sliding scale insulin administered. During exam patient AO x 1, endorsing acute delirium in setting of hospitalization and infection. Per Dr Sinclair, patient will continue to undergo peritoneal dialysis tonight. Peritoneal fluid culture grew Acinetobacter baumannii/haemol. Exam Vital Signs Temp Pulse Resp BP Pulse Ox O2 Del Method 97.2 F 75 20 170/81 H 96 Room Air 09/04/24 15:59 09/04/24 16:00 09/04/24 15:59 09/04/24 15:59 09/04/24 15:59 09/04/24 15:59 Narrative Exam Constitutional Alert, oriented x 3 and comfortable. Elderly male, obese HEENT Vision grossly intact. Patent nares. Trachea midline Respiratory Chest normal on inspection and clear auscultation bilaterally Cardiovascular S1 and S2 audible, RRR. No murmurs carotid bruit. No gross JVD. Abdominal Tense, distended, tender to palpation in all quadrants, warm to touch, bowel sounds auscultated - improving Genitourinary No bladder tenderness, no flank pain. Normal to palpation Musculoskeletal Extremities tone within normal limits. No LE edema. Neurological CN II - XII grossly intact. Extremity motor and sensation grossly intact. Skin Warm, dry and intact. No apparent lesions. Psychiatric Patient has good affect, is cooperative Objective Labs 09/10/24 04:30 09/10/24 04:30 Labs: Laboratory Results - last 24 hr 09/04/24 05:00 WBC 6.4 RBC 3.58 L Hgb 10.1 L Hct 30.6 L MCV 86 MCH 28.2 MCHC 33.0 RDW Std Deviation 45.6 H Plt Count 132 L Neut % (Auto) 73 Lymph % (Auto) 15 [place] % (Auto) 6 Eos % (Auto) 5 Baso % (Auto) 0 Neut # (Auto) 4.7 Lymph # (Auto) 1.0 [place] # (Auto) 0.4 Eos # (Auto) 0.3 Baso # (Auto) 0.0 Immature Gran # (Auto) 0.04 H Absolute Nucleated RBC 0.00 Immature Gran % 1 H Nucleated RBC % 0 Sodium 126 L Potassium 3.6 D Chloride 91 L Carbon Dioxide 25.7 Anion Gap 9 BUN 39 H Creatinine 6.5 H* Estim Creat Clear Calc 9.8 L eGFR 8 L* BUN/Creatinine Ratio 6 L Glucose 410 H* Calculated Osmolality 279 Calcium 8.6 Phosphorus 2.9 Magnesium 1.8 Quality Measures Quality Measures none Advance care planning discussed with:: other Assessment & Plan Assessment Current Active Medications: Generic Name Dose Route Start Last Admin Trade Name Freq PRN Reason Stop Dose Admin Acetaminophen 650 mg 09/01/24 17:55 09/03/24 02:24 Acetaminophen 325 Mg Tablet PO 10/01/24 17:54 650 mg Q6H PRN Administration Fever >100.3 or pain Protocol Hydrocodone Bitart/Acetaminophen 1 tab 09/03/24 09:28 Hydrocodone/Apap 5/325 Tablet PO 09/08/24 09:27 Q4HR PRN BREAKTHROUGH PAIN Protocol Albuterol/Ipratropium 3 ml 09/01/24 17:55 Albuterol/Ipratropium (Duoneb) Rt [place] 3 Ml Nebu INH 10/01/24 17:54 Q4HR PRN SHORTNESS OF BREATH OR WHEEZE Atorvastatin Calcium 10 mg 09/02/24 09:00 09/04/24 09:03 Atorvastatin Calcium 10 Mg Tablet PO 10/02/24 08:59 10 mg QDAY BRIANA Administration Dextrose 50 ml 09/01/24 18:33 Dextrose 50%-Water Inj 50 Ml Syringe IV 10/01/24 18:32 Q15MIN PRN BG <50 OR BG <70 & pt unresponsive Gabapentin 300 mg 09/02/24 14:00 09/04/24 14:55 Gabapentin 300 Mg Capsule PO 10/02/24 13:59 300 mg TID BRIANA Administration Glucagon 1 mg 09/01/24 18:33 Glucagon Inj 1 Mg Vial IM Q15MIN PRN BG <70, and no IV access Heparin Sodium (Porcine) 5,000 unit 09/01/24 21:00 09/04/24 09:04 Heparin Sod Inj 5000 Unit/Ml Vial SC 09/15/24 20:59 5,000 unit BID BRIANA Administration Cefepime HCl 1 gm/ Sodium 50 mls @ 100 mls/hr 09/04/24 19:33 Chloride PERIT 09/04/24 20:02 X1 ONE Insulin Glargine 15 unit 09/03/24 21:00 09/03/24 21:27 Insulin Glargine (Lantus) 5 Unit/0.05 Ml (Per 5 Units) SC 10/03/24 20:59 15 unit HS BRIANA Administration Insulin Human Lispro 0 unit 09/02/24 07:30 09/04/24 17:17 Insulin Lispro (Admelog) 1 Unit/0.01 Ml Unit SC 10/02/24 07:29 3 unit AC BRIANA Administration Protocol Insulin Human Lispro 5 unit 09/03/24 12:00 09/04/24 17:18 Insulin Lispro (Admelog) 1 Unit/0.01 Ml Unit SC 10/03/24 11:59 5 unit TIDWM BRIANA Administration Midodrine 10 mg 09/03/24 15:15 09/04/24 14:55 Midodrine 5 Mg Tablet PO 10/03/24 15:14 Not Given TID BRIANA Ondansetron HCl 4 mg 09/01/24 17:59 09/04/24 15:52 Ondansetron Inj 2 Mg/Ml Inj 2 Ml IV 10/01/24 17:58 4 mg Q6H PRN Administration NAUSEA OR VOMITING Protocol Pantoprazole Sodium 40 mg 09/01/24 18:00 09/04/24 09:03 Pantoprazole Inj 40 Mg Vial IVP 10/01/24 17:59 40 mg QDAY BRIANA Administration Sennosides 1 tab 09/04/24 16:15 09/04/24 17:06 Senna/Docusate Sod 1 Tab Tablet PO 10/04/24 16:14 1 tab QDAY BRIANA Administration Protocol Tamsulosin HCl 0.4 mg 09/02/24 09:00 09/04/24 09:03 Tamsulosin Hcl 0.4 Mg Capsule PO 10/02/24 08:59 0.4 mg QDAY BRIANA Administration Tramadol HCl 50 mg 09/02/24 08:24 09/04/24 03:59 Tramadol Hcl 50 Mg Tablet PO 09/07/24 08:59 50 mg Q12HR PRN Administration PAIN SCALE 4-10(Mod-Sev Zolpidem Tartrate 2.5 mg 09/03/24 21:00 09/03/24 21:14 Zolpidem 5 Mg Tablet PO 10/03/24 20:59 2.5 mg HS BRIANA Administration Plan Patient is a 78-year-old male with past medical history significant for ESRD on PD since 2019 follows up with dairy farm operator Dr. Collado in [place], primary hypertension, hyperlipidemia, insulin-dependent diabetes mellitus type 2 and diabetic neuropathy presenting with a chief complaint of fever, chills and diarrhea. Patient will be admitted for workup and management of likely PD catheter associated peritonitis. 1. Likely PD catheter associated peritonitis 2. ESRD on peritoneal dialysis since 2019 Patient presented with 2-day history of fever, chills associated with vomiting and abdominal pain. On exam patient's abdomen grossly distended and warm to palpation. Abdomen pelvis CT completed on 09/01/2024 findings include: Primary hepatocellular disease, atrophic [place] kidneys, moderate free fluid in pelvis. No abdominal or pelvic abscess. [09/01/24] Peritoneal fluid analysis revealed PMNs >13,000 [09/03/24] Peritoneal fluid analysis revealed PMNs >9159 Last night patient had peritoneal dialysis with 3 L of fluid removal. Also had peritoneal dialysis catheter directed antibiotics with cefazolin and cefepime as per nephrology recommendations. Patient scheduled for another session tonight at 7 PM with repeat dialysate fluid culture and cell count Plan: ? Low consistent carb diet. ? Daily peritoneal fluid analysis to assess PMNs, culture - PD catheter directed antibiotics as per nephrology recommendations. ? Food Runner, Dr Sinclair consulted and closely following the case. Appreciate recommendations 3. Elevated lactic acid - resolved On admission lactic acid elevated at 3.5 up trended to 4 ---> 1.7 Plan: ? 500 cc normal saline IV fluid bolus. 4. Primary hypertension 5. Hyperlipidemia On admission BP 104/53. Currently BP 98/46 Triglycerides 155, cholesterol 112, LDL 50, HDL 31 Plan: ? Continue home medication atorvastatin 10 Mg p.o. at bedtime ? Antihypertensives on hold for now in light of low BP 6. Insulin-dependent diabetes mellitus type 2 [9.2%] Patient on insulin 70/30 at home, unsure of dose [09/02/2024] HbA1c 9.2% Fasting blood glucose 363. Will increase insulin glargine to 15 units at bedtime from 10 units at bedtime. Will increase pre-prandial glucose to 5 units 3 times daily with meals from 3 units 3 times daily with meals Plan: ? Low consistent carb diet ? Increased insulin lispro to 5U SC 3 times daily with meals ? Increased insulin glargine to 15 units SC at bedtime ? Sliding scale insulin to cover for any blood glucose spikes 7. Euvolemic hyponatremia NA 126, OSM 277 Likely due to peritoneal dialysis fluid removal. 8. Insomnia Last night patient had difficulty falling asleep and could not sleep through the night. Plan: ? Will start patient on zolpidem 2.5 Mg p.o. at bedtime Health maintenance: Disposition: Peritoneal dialysis tonight with PD catheter directed antibiotics and repeat peritoneal dialysate cell count and culture. Diet: Regular Lines: pIVs GI Prophylaxis: Pantoprazole Thrombo Prophylaxis: Heparin 5000 U SC twice daily Code status: DNR This patient care was discussed with my attending Dr. Pebbles Spencer MD PGY-2 Disclaimer: Minor errors in user experience lead may be present since this note was dictated by speech recognition software. Attending Provider Attestation/Addendum 78-year-old male with multiple comorbidities including hypertension, hyperlipidemia, type 2 diabetes mellitus with subsequent end-stage renal disease on peritoneal dialysis who presented to the ER with fevers found to have PD catheter associated peritonitis subsequently started on IV antibiotic therapy. Patient underwent paracentesis with findings of peritonitis and discussed case with dairy farm operator who recommended keeping the PD catheter in place and recommended IV antibiotic therapy. As of now, plan to continue IV antibiotic therapy and peritoneal dialysis per nephrology input.overnight, patient was noted to be confused and alert and oriented to name and date of only. Appears to be delirium for which we will continue to monitor closely and reorient the patient. I reviewed above note and agree with findings and plans. I have also personally examined the patient with medicine team and went over assessment and plan with medical team including internet sales manager and resident physician.
[2024-09-04] MEDS: CEFEPIME INJ 1 GM in SODIUM CHLORIDE 0.9% 50 ML 100 GM PERIT (20:08)
[2024-09-04] MEDS: ceFAZolin 1 GM, Sterile Water 2.5 ML PERIT (20:12)
[2024-09-04] MEDS: HEPARIN SOD INJ 1000 UNIT/ML VIAL 10 ML 3000 UNIT INDWELLCAT (20:15)
[2024-09-04] MEDS: ZOLPIDEM 5 MG TABLET 2.5 MG PO (21:25)
[2024-09-04] MEDS: INSULIN GLARGINE (Lantus) 5 UNIT/0.05 ML (PER 5 UNITS) 15 UNIT SC (21:28)
[2024-09-05] VITALS (13 sets, daily range): BP systolic 88–171; BP diastolic 58–86; PULSE 72–104; RESP 14–97; TEMP 36.1–36.6; O2SAT 96–99
[2024-09-05] MEDS: INSULIN LISPRO (AdmeLOG) 1 UNIT/0.01 ML UNIT 5 UNIT SC ×2 (04:44→07:40)
[2024-09-05] MEDS: GABAPENTIN 300 MG CAPSULE PO ×2 (05:05→20:55)
[2024-09-05] MEDS: INSULIN LISPRO (AdmeLOG) 1 UNIT/0.01 ML UNIT 6 UNIT SC (06:40)
[2024-09-05] MEDS: INSULIN LISPRO (AdmeLOG) 1 UNIT/0.01 ML UNIT SC (07:42)
[2024-09-05] MEDS: SENNA/DOCUSATE SOD 1 TAB TABLET PO (08:43)
[2024-09-05] MEDS: PANTOPRAZOLE INJ 40 MG VIAL IVP (08:43)
[2024-09-05] MEDS: TAMSULOSIN HCL 0.4 MG CAPSULE PO (08:44)
[2024-09-05] MEDS: ATORVASTATIN CALCIUM 10 MG TABLET PO (08:44)
[2024-09-05] MEDS: HEPARIN SOD INJ 5000 UNIT/ML VIAL SC ×2 (08:44→21:14)
[2024-09-05 09:30] LABS: Basophils % (Auto) 0 % (0-2.5); Eosinophils # (Auto) 0.3 Thou/mm3 (0.0-0.5); Eosinophils % (Auto) 5 % (0-10); Hematocrit 33.1 % (41.0-53.0); Immature Granulocytes % (Auto) 2 % (0-0); Immature Granulocytes Auto 0.14 Thou/mm3 (0.00-0.00); Lymphocytes # (Auto) 1.1 Thou/mm3 (1.0-4.8); Lymphocytes % (Auto) 15 % (10-50); Mean Corpuscular HGB Conc 33.2 g/dl (31.0-37.0); Mean Corpuscular Volume 84 fL (80-100); Monocytes # (Auto) 0.5 Thou/mm3 (0.0-0.8); Monocytes % (Auto) 7 % (0-12); Neutrophils # (Auto) 5.2 Thou/mm3 (1.8-7.7); Neutrophils % (Auto) 71 % (37-80); Nucleated Red Blood Cell % 0 /100 WBC (0); Platelet Count 163 Thou/mm3 (140-440); RDW Standard Deviation 43.7 fL (35.1-43.9); Red Blood Count 3.93 Miln/mm3 (4.50-5.90); White Blood Count 7.2 Thou/mm3 (3.8-10.6)
[2024-09-05] MEDS: Milk Of Magnesia Susp 30 ML UDC PO (10:00)
[2024-09-05] MEDS: POLYETHYLENE GLYCOL 17 GM PACKET PO (10:00)
[2024-09-05 10:01] LABS: Alanine Aminotransferase < 7 U/L (10-49); Albumin, Serum 2.9 gm/dL (3.4-4.8); Albumin/Globulin Ratio 0.9 (1.2-2.2); Alkaline Phosphatase 152 U/L (46-116); Anion Gap 7 (7-16); Aspartate Amino Transferase 20 U/L (0-34); BUN/Creatinine Ratio 6 Ratio (12-20); Bilirubin,Total 0.4 mg/dL (0.3-1.2); Blood Urea Nitrogen 39 mg/dL (9-23); Calcium 9.1 mg/dL (8.3-10.6); Carbon Dioxide 28.2 mMol/L (20.0-31.0); Chloride 91 mMol/L (98-107); Creatinine (Component) 6.3 mg/dL (0.6-1.3); Estimated Creatinine Clearance 10.1 mL/min (>60); Globulin 3.2 gm/dL (2.3-3.5); Glucose 270 mg/dL (74-106); Magnesium 1.7 mg/dL (1.6-2.6); Osmolality,Calculated 272 (275-295); Phosphorous 2.6 mg/dL (2.4-5.1); Potassium 3.7 mMol/L (3.4-5.1); Sodium 126 mMol/L (136-145); Total Protein 6.1 gm/dL (5.7-8.2); eGFR 8 See Note
[2024-09-05] MEDS: LORazepam 2 MG/ML VIAL 1 MG IVP (11:30)
--- NOTE | 2024-09-05 14:22 | ESPR_ITS ---
<Statement entered by Filemon Escobar MD - 09/06/24 16:31> Agree with plan and examination finding on the note below. Patient seen and examined at bedside today. Labs and imaging reviewed. Patient care discussed with my attending Dr. Rogel and co-resident . Documentation for date of: 09/05/24 Subjective Subjective Interval history: Patient is Romeo speaking and interaction facilitated by registered healthcare feeder associate. Patient was seen and examined at bedside this AM. No acute exents overnight. Patient tolerating diet, adequate urine output and mentation is at baseline. Patient denies any abdominal pain, vomiting, fever. Endorses constipation. Patient received a total of 59 units insulin in past 24 hours. Increased insulin glargine to 30U at bedtime from 15U at bedtime and scheduled insulin lispro to 10 U 3 times daily with meals from 5 U 3 times daily with meals. As per patient's , patient has periods of agitation and delirium. Discontinued scheduled zolpidem and started patient on melatonin. Will give Ativan 1 Mg IV x 1 for agitation. Exam Vital Signs Temp Pulse Resp BP Pulse Ox O2 Del Method 97.2 F 86 18 88/58 L 98 Room Air 09/05/24 12:00 09/05/24 12:00 09/05/24 12:00 09/05/24 12:00 09/05/24 12:09/05/24 12:00 Narrative Exam Constitutional Alert, oriented x 3 and comfortable. Elderly male, obese HEENT Legally blind in both eyes. Patent nares. Trachea midline Respiratory Chest normal on inspection and clear auscultation bilaterally Cardiovascular S1 and S2 audible, RRR. No murmurs carotid bruit. No gross JVD. Abdominal Tense, distended, Non-tender to palpation in all quadrants, warm to touch, bowel sounds auscultated - improving Genitourinary No bladder tenderness, no flank pain. Normal to palpation Musculoskeletal Extremities tone within normal limits. No LE edema. Neurological CN II - XII grossly intact. Extremity motor and sensation grossly intact. Skin Warm, dry and intact. No apparent lesions. Psychiatric Patient has good affect, is cooperative Objective Labs 09/10/24 04:30 09/10/24 04:30 Labs: Laboratory Results - last 24 hr 09/05/24 09:15 WBC 7.2 RBC 3.93 L Hgb 11.0 L Hct 33.1 L MCV 84 MCH 28.0 MCHC 33.2 RDW Std Deviation 43.7 Plt Count 163 D Neut % (Auto) 71 Lymph % (Auto) 15 [place] % (Auto) 7 Eos % (Auto) 5 Baso % (Auto) 0 Neut # (Auto) 5.2 Lymph # (Auto) 1.1 [place] # (Auto) 0.5 Eos # (Auto) 0.3 Baso # (Auto) 0.0 Immature Gran # (Auto) 0.14 H Absolute Nucleated RBC 0.00 Immature Gran % 2 H Nucleated RBC % 0 Sodium 126 L Potassium 3.7 Chloride 91 L Carbon Dioxide 28.2 Anion Gap 7 BUN 39 H Creatinine 6.3 H* Estim Creat Clear Calc 10.1 L eGFR 8 L* BUN/Creatinine Ratio 6 L Glucose 270 H D Calculated Osmolality 272 L Calcium 9.1 Corrected Calcium 10.0 Phosphorus 2.6 Magnesium 1.7 Total Bilirubin 0.4 AST 20 ALT < 7 L Alkaline Phosphatase 152 H Total Protein 6.1 Albumin 2.9 L Globulin 3.2 Albumin/Globulin Ratio 0.9 L Quality Measures Quality Measures none Advance care planning discussed with:: patient Assessment & Plan Assessment Current Active Medications: Generic Name Dose Route Start Last Admin Trade Name Freq PRN Reason Stop Dose Admin Acetaminophen 650 mg 09/01/24 17:55 09/03/24 02:24 Acetaminophen 325 Mg Tablet PO 10/01/24 17:54 650 mg Q6H PRN Administration Fever >100.3 or pain Protocol Hydrocodone Bitart/Acetaminophen 1 tab 09/03/24 09:28 Hydrocodone/Apap 5/325 Tablet PO 09/08/24 09:27 Q4HR PRN BREAKTHROUGH PAIN Protocol Albuterol/Ipratropium 3 ml 09/01/24 17:55 Albuterol/Ipratropium (Duoneb) Rt [place] 3 Ml Nebu INH 10/01/24 17:54 Q4HR PRN SHORTNESS OF BREATH OR WHEEZE Atorvastatin Calcium 10 mg 09/02/24 09:00 09/05/24 08:44 Atorvastatin Calcium 10 Mg Tablet PO 10/02/24 08:59 10 mg QDAY BRIANA Administration Cefazolin Sodium 1 gm/ Sterile 0 gm 09/05/24 19:30 Water 2.5 ml PERIT 09/05/24 19:31 X1 ONE Dextrose 25 ml 09/05/24 04:34 Dextrose 50%-Water Inj 50 Ml Syringe IV 10/05/24 04:33 Q15MIN PRN BG 50-70 responsive npo pt Dextrose 50 ml 09/05/24 04:34 Dextrose 50%-Water Inj 50 Ml Syringe IV 10/05/24 04:33 Q15MIN PRN BG <50 OR BG <70 & pt unresponsive Gabapentin 300 mg 09/02/24 14:00 09/05/24 14:12 Gabapentin 300 Mg Capsule PO 10/02/24 13:59 Not Given TID [facility] Glucagon 1 mg 09/05/24 04:34 Glucagon Inj 1 Mg Vial IM Q15MIN PRN BG <70, and no IV access Heparin Sodium (Porcine) 5,000 unit 09/01/24 21:00 09/05/24 08:44 Heparin Sod Inj 5000 Unit/Ml Vial SC 09/15/24 20:59 5,000 unit BID [facility] Administration Heparin Sodium (Porcine) 3,000 unit 09/05/24 19:30 Heparin Sod Inj 1000 Unit/Ml Vial 10 Ml [facility]WELLCAT 09/05/24 19:31 X1 ONE Cefepime HCl 1 gm/ Sodium 60 mls @ 100 mls/hr 09/05/24 19:30 Chloride/ Sterile Water PERIT 09/05/24 20:05 X1 ONE Insulin Glargine 30 unit 09/05/24 21:00 Insulin Glargine (Lantus) 5 Unit/0.05 Ml (Per 5 Units) [place] 10/05/24 20:59 [facility] Insulin Human Lispro 0 unit 09/02/24 07:30 09/05/24 11:59 Insulin Lispro (Admelog) 1 Unit/0.01 Ml Unit SC 10/02/24 07:29 Not Given [facility] Protocol Insulin Human Lispro 10 unit 09/05/24 12:00 09/05/24 12:00 Insulin Lispro (Admelog) 1 Unit/0.01 Ml Unit SC 10/05/24 11:59 Not Given TIDWM [facility] Melatonin 9 mg 09/05/24 21:00 Melatonin 3 Mg Tablet PO 10/05/24 20:59 [facility] Midodrine 10 mg 09/03/24 15:15 09/05/24 05:30 Midodrine 5 Mg Tablet PO 10/03/24 15:14 Not Given TID BRIANA Ondansetron HCl 4 mg 09/01/24 17:59 09/04/24 15:52 Ondansetron Inj 2 Mg/Ml Inj 2 Ml IV 10/01/24 17:58 4 mg Q6H PRN Administration NAUSEA OR VOMITING Protocol Pantoprazole Sodium 40 mg 09/01/24 18:00 09/05/24 08:43 Pantoprazole Inj 40 Mg Vial IVP 10/01/24 17:59 40 mg QDAY BRIANA Administration Polyethylene Glycol 17 gm 09/05/24 09:45 09/05/24 10:00 Polyethylene Glycol 17 Gm Packet PO 10/05/24 09:44 17 gm QDAY BRIANA Administration Sennosides 1 tab 09/04/24 16:15 09/05/24 08:43 Senna/Docusate Sod 1 Tab Tablet PO 10/04/24 16:14 1 tab QDAY BRIANA Administration Protocol Tamsulosin HCl 0.4 mg 09/02/24 09:00 09/05/24 08:44 Tamsulosin Hcl 0.4 Mg Capsule PO 10/02/24 08:59 0.4 mg QDAY BRIANA Administration Tramadol HCl 50 mg 09/02/24 08:24 09/04/24 03:59 Tramadol Hcl 50 Mg Tablet PO 09/07/24 08:59 50 mg Q12HR PRN Administration PAIN SCALE 4-10(Mod-Sev Plan Patient is a 78-year-old male with past medical history significant for ESRD on PD since 2019 follows up with applications systems analyst Dr. Collado in [place], primary hypertension, hyperlipidemia, insulin-dependent diabetes mellitus type 2 and diabetic neuropathy presenting with a chief complaint of fever, chills and diarrhea. Patient will be admitted for workup and management of likely PD catheter associated peritonitis. 1. Likely PD catheter associated peritonitis 2. ESRD on peritoneal dialysis since 2019 Patient presented with 2-day history of fever, chills associated with vomiting and abdominal pain. On exam patient's abdomen grossly distended and warm to palpation. Abdomen pelvis CT completed on 09/01/2024 findings include: Primary hepatocellular disease, atrophic [place] kidneys, moderate free fluid in pelvis. No abdominal or pelvic abscess. [09/01/24] Peritoneal fluid analysis revealed PMNs >13,000 [09/03/24] Peritoneal fluid analysis revealed PMNs >9159 Last night patient had peritoneal dialysis with 3 L of fluid removal. Also had peritoneal dialysis catheter directed antibiotics with cefazolin and cefepime as per nephrology recommendations. Patient scheduled for another session tonight at 7 PM with repeat dialysate fluid culture and cell count Plan: ? Low consistent carb diet. ? Daily peritoneal fluid analysis to assess PMNs, culture - PD catheter directed antibiotics as per nephrology recommendations. ? Metal Fabrication Supervisor, Dr Sinclair consulted and closely following the case. Appreciate recommendations 3. Insomnia 4. Likely hospital induced delirium As per patient's he has periods of agitation and confusion. Patient was previously on zolpidem 2.5 Mg p.o. at bedtime Plan: ? Discontinued zolpidem and started on melatonin 9 Mg p.o. at bedtime 5. Elevated lactic acid - resolved On admission lactic acid elevated at 3.5 up trended to 4 ---> 1.7 6. Primary hypertension 7. Hyperlipidemia On admission BP 104/53. Currently BP 98/46 Triglycerides 155, cholesterol 112, LDL 50, HDL 31 Plan: ? Continue home medication atorvastatin 10 Mg p.o. at bedtime ? Antihypertensives on hold for now in light of low BP 8. Insulin-dependent diabetes mellitus type 2 [9.2%] 9. Diabetic neuropathy 10. Legally blind in both eyes Patient on insulin 70/30 at home, unsure of dose [09/02/2024] HbA1c 9.2% Fasting blood glucose 410. Will increase insulin glargine to 30 units at bedtime from 15 units at bedtime. Will increase pre-prandial glucose to 10 units 3 times daily with meals from 5 units 3 times daily with meals Plan: ? Low consistent carb diet ? Increased insulin lispro to 10U SC 3 times daily with meals ? Increased insulin glargine to 30U units SC at bedtime ? Sliding scale insulin to cover for any blood glucose spikes 11. Pseudo hyponatremia NA 126, glucose 410 Corrected NA?131 Health maintenance: Disposition: Peritoneal dialysis tonight with PD catheter directed antibiotics. Monitor for worsening of delirium Diet: Low consistent carb Lines: pIVs GI Prophylaxis: Pantoprazole Thrombo Prophylaxis: Heparin 5000 U SC twice daily Code status: DNR Plan of care discussed with Attending Dr. Rogel and PGY3 Dr. Shawn Dickersno MD PGY 1 Attending Provider Attestation/Addendum 78-year-old male with multiple comorbidities including hypertension, hyperlipidemia, type 2 diabetes mellitus with subsequent end-stage renal disease on peritoneal dialysis who presented to the ER with fevers found to have PD catheter associated peritonitis subsequently started on IV antibiotic therapy. Patient underwent paracentesis with findings of peritonitis and discussed case with applications systems analyst who recommended keeping the PD catheter in place and recommended IV antibiotic therapy. As of now, plan to continue IV antibiotic therapy and peritoneal dialysis per nephrology input.overnight, patient mentation improving and plan to continue monitoring closely. Will reach out to nephrology regarding further input for PD catheter infection. On exam, no evidence of any purulent drainage from the catheter site. Tolerated PD dialysis last night. I reviewed above note and agree with findings and plans. I have also personally examined the patient with medicine team and went over assessment and plan with medical team including application development intern and resident physician.
[2024-09-05] MEDS: HEPARIN SOD INJ 1000 UNIT/ML VIAL 10 ML 3000 UNIT INDWELLCAT (19:22)
[2024-09-05] MEDS: CEFEPIME PERIT (19:22)
[2024-09-05] MEDS: SODIUM CHLORIDE 0.9% PERIT (19:22)
[2024-09-05] MEDS: STERILE WATER PERIT (19:22)
[2024-09-05] MEDS: MELATONIN 3 MG TABLET 9 MG PO (20:55)
[2024-09-05] MEDS: guaiFENesin SYRUP 200 MG/10 ML UDC PO (20:56)
[2024-09-05] MEDS: INSULIN GLARGINE (Lantus) 5 UNIT/0.05 ML (PER 5 UNITS) 30 UNIT SC (21:10)
[2024-09-05] MEDS: ALBUTEROL/IPRATROPIUM (Duoneb) RT SOL 3 ML NEBU INH (22:35)
[2024-09-06] VITALS (11 sets, daily range): BP systolic 105–157; BP diastolic 57–72; PULSE 61–758; RESP 14–97; TEMP 36.2–37.1; O2SAT 93–99
[2024-09-06] MEDS: traMADol HCL 50 MG TABLET PO ×2 (00:23→12:32)
[2024-09-06 05:40] LABS: Basophils % (Auto) 1 % (0-2.5); Eosinophils # (Auto) 0.2 Thou/mm3 (0.0-0.5); Eosinophils % (Auto) 2 % (0-10); Hematocrit 30.3 % (41.0-53.0); Hemoglobin 10.4 g/dL (13.5-16.0); Immature Granulocytes % (Auto) 3 % (0-0); Immature Granulocytes Auto 0.29 Thou/mm3 (0.00-0.00); Lymphocytes # (Auto) 1.2 Thou/mm3 (1.0-4.8); Lymphocytes % (Auto) 14 % (10-50); Mean Corpuscular HGB Conc 34.3 g/dl (31.0-37.0); Mean Corpuscular Hemoglobin 28.9 pg (25.0-35.0); Mean Corpuscular Volume 84 fL (80-100); Monocytes # (Auto) 0.7 Thou/mm3 (0.0-0.8); Monocytes % (Auto) 8 % (0-12); Neutrophils # (Auto) 6.2 Thou/mm3 (1.8-7.7); Neutrophils % (Auto) 73 % (37-80); Nucleated Red Blood Cell # 0.02 Thou/mm3 (0.00-0.00); Nucleated Red Blood Cell % 0 /100 WBC (0); Platelet Count 144 Thou/mm3 (140-440); White Blood Count 8.6 Thou/mm3 (3.8-10.6)
[2024-09-06] MEDS: GABAPENTIN 300 MG CAPSULE PO ×3 (05:44→22:21)
[2024-09-06] MEDS: INSULIN LISPRO (AdmeLOG) 1 UNIT/0.01 ML UNIT 5 UNIT SC (05:47)
[2024-09-06] MEDS: ALBUTEROL/IPRATROPIUM (Duoneb) RT SOL 3 ML NEBU INH ×2 (07:17→22:27)
[2024-09-06 07:18] LABS: Alanine Aminotransferase < 7 U/L (10-49); Albumin, Serum 2.7 gm/dL (3.4-4.8); Albumin/Globulin Ratio 0.9 (1.2-2.2); Alkaline Phosphatase 219 U/L (46-116); Anion Gap 9 (7-16); Aspartate Amino Transferase 26 U/L (0-34); BUN/Creatinine Ratio 6 Ratio (12-20); Bilirubin,Total 0.4 mg/dL (0.3-1.2); Blood Urea Nitrogen 40 mg/dL (9-23); Calcium 8.6 mg/dL (8.3-10.6); Calcium (Corrected) 9.6 mg/dL (8.5-10.1); Carbon Dioxide 26.8 mMol/L (20.0-31.0); Chloride 89 mMol/L (98-107); Creatinine (Component) 6.3 mg/dL (0.6-1.3); Estimated Creatinine Clearance 10.1 mL/min (>60); Globulin 3.1 gm/dL (2.3-3.5); Magnesium 1.9 mg/dL (1.6-2.6); Osmolality,Calculated 281 (275-295); Phosphorous 3.2 mg/dL (2.4-5.1); Potassium 3.9 mMol/L (3.4-5.1); Sodium 125 mMol/L (136-145); Total Protein 5.8 gm/dL (5.7-8.2); eGFR 8 See Note
[2024-09-06 07:23] LABS: Glucose 450 mg/dL (74-106)
--- NOTE | 2024-09-06 07:50 | ESPR_ITS ---
<Statement entered by Filemon Escobar MD - 09/07/24 17:15> Agree with plan and examination finding on the note below. Patient seen and examined at bedside today. Labs and imaging reviewed. Patient care discussed with my attending Dr. Rogel and co-resident Dr. Dickerson. Documentation for date of: 09/06/24 Subjective Subjective Interval history: Patient is Romeo speaking and interaction facilitated by registered healthcare per diem interpreter. Patient was seen and examined at bedside this AM. No acute exents overnight. Patient tolerating diet, adequate urine output and mentation is at baseline. Patient denies any abdominal pain, vomiting, fever. Endorses constipation. Patient cleared from Nephrology for discharge and advised to follow up with Outpatient Dialysis Nurse and Hostess Host Dr. Collado. Pending PT eval and acute rehab placement. Exam Vital Signs Temp Pulse Resp BP Pulse Ox O2 Del Method 98.1 F 71 16 157/71 H 99 Room Air 09/06/24 07:09 09/06/24 07:18 09/06/24 07:18 09/06/24 07:09 09/06/24 07:18 09/06/24 04:00 Narrative Exam Constitutional Alert, oriented x 3 and comfortable. Elderly male, obese HEENT Legally blind in both eyes. Patent nares. Trachea midline Respiratory Chest normal on inspection and clear auscultation bilaterally Cardiovascular S1 and S2 audible, RRR. No murmurs carotid bruit. No gross JVD. Abdominal Soft, distended, Non-tender to palpation in all quadrants, cool to touch, bowel sounds auscultated - improving Genitourinary No bladder tenderness, no flank pain. Normal to palpation Musculoskeletal Extremities tone within normal limits. No LE edema. Neurological CN II - XII grossly intact. Extremity motor and sensation grossly intact. Skin Warm, dry and intact. No apparent lesions. Psychiatric Patient has good affect, is cooperative Objective Labs 09/10/24 04:30 09/10/24 04:30 Labs: Laboratory Results - last 24 hr 09/05/24 09/06/24 09:15 05:18 WBC 7.2 8.6 RBC 3.93 L 3.60 L Hgb 11.0 L 10.4 L Hct 33.1 L 30.3 L MCV 84 84 MCH 28.0 28.9 MCHC 33.2 34.3 RDW Std Deviation 43.7 44.0 H Plt Count 163 D 144 Neut % (Auto) 71 73 Lymph % (Auto) [address] [place] % (Auto) 7 8 Eos % (Auto) 5 2 Baso % (Auto) 0 1 Neut # (Auto) 5.2 6.2 Lymph # (Auto) 1.[address] [place] # (Auto) 0.5 0.7 Eos # (Auto) 0.3 0.2 Baso # (Auto) 0.0 0.0 Immature Gran # (Auto) 0.14 H 0.29 H Absolute Nucleated RBC 0.00 0.02 H Immature Gran % 2 H 3 H Nucleated RBC % 0 0 Sodium 126 L 125 L Potassium 3.7 3.9 Chloride 91 L 89 L Carbon Dioxide 28.2 26.8 Anion Gap 7 9 BUN 39 H 40 H Creatinine 6.3 H* 6.3 H* Estim Creat Clear Calc 10.1 L 10.1 L eGFR 8 L* 8 L* BUN/Creatinine Ratio 6 L 6 L Glucose 270 H D 450 H* D Calculated Osmolality 272 L 281 Calcium 9.1 8.6 Corrected Calcium 10.0 9.6 Phosphorus 2.6 3.2 Magnesium 1.7 1.9 Total Bilirubin 0.4 0.4 AST 20 26 ALT < 7 L < 7 L Alkaline Phosphatase 152 H 219 H D Total Protein 6.1 5.8 Albumin 2.9 L 2.7 L Globulin 3.2 3.1 Albumin/Globulin Ratio 0.9 L 0.9 L Quality Measures Quality Measures none Advance care planning discussed with:: patient Assessment & Plan Assessment Current Active Medications: Generic Name Dose Route Start Last Admin Trade Name Belinad PRN Reason Stop Dose Admin Acetaminophen 650 mg 09/01/24 17:55 09/03/24 02:24 Acetaminophen 325 Mg Tablet PO 10/01/24 17:54 650 mg Q6H PRN Administration Fever >100.3 or pain Protocol Hydrocodone Bitart/Acetaminophen 1 tab 09/03/24 09:28 Hydrocodone/Apap 5/325 Tablet PO 09/08/24 09:27 Q4HR PRN BREAKTHROUGH PAIN Protocol Albuterol/Ipratropium 3 ml 09/05/24 22:00 09/06/24 07:17 Albuterol/Ipratropium (Duoneb) Rt [place] 3 Ml Nebu INH 10/05/24 21:59 3 ml Q8HR BRIANA Administration Atorvastatin Calcium 10 mg 09/02/24 09:00 09/05/24 08:44 Atorvastatin Calcium 10 Mg Tablet PO 10/02/24 08:59 10 mg QDAY BRIANA Administration Dextrose 25 ml 09/05/24 04:34 Dextrose 50%-Water Inj 50 Ml Syringe IV 10/05/24 04:33 Q15MIN PRN BG 50-70 responsive npo pt Dextrose 50 ml 09/05/24 04:34 Dextrose 50%-Water Inj 50 Ml Syringe IV 10/05/24 04:33 Q15MIN PRN BG <50 OR BG <70 & pt unresponsive Gabapentin 300 mg 09/02/24 14:00 09/06/24 05:44 Gabapentin 300 Mg Capsule PO 10/02/24 13:59 300 mg TID BRIANA Administration Glucagon 1 mg 09/05/24 04:34 Glucagon Inj 1 Mg Vial IM Q15MIN PRN BG <70, and no IV access Guaifenesin 200 mg 09/05/24 21:00 09/05/24 20:56 Guaifenesin Syrup 200 Mg/10 Ml Udc PO 10/05/24 20:59 200 mg BID BRIANA Administration Protocol Heparin Sodium (Porcine) 5,000 unit 09/01/24 21:00 09/05/24 21:14 Heparin Sod Inj 5000 Unit/Ml Vial SC 09/15/24 20:59 5,000 unit BID BRIANA Administration Insulin Glargine 30 unit 09/05/24 21:00 09/05/24 21:10 Insulin Glargine (Lantus) 5 Unit/0.05 Ml (Per 5 Units) SC 10/05/24 20:59 30 unit HS BRIANA Administration Insulin Human Lispro 10 unit 09/05/24 12:00 09/05/24 17:43 Insulin Lispro (Admelog) 1 Unit/0.01 Ml Unit SC 10/05/24 11:59 Not Given TIDWM BRIANA Insulin Human Lispro 0 unit 09/06/24 05:31 Insulin Lispro (Admelog) 1 Unit/0.01 Ml Unit SC 10/02/24 07:29 [facility] Protocol Melatonin 9 mg 09/05/24 21:00 09/05/24 20:55 Melatonin 3 Mg Tablet PO 10/05/24 20:59 9 mg HS BRIANA Administration Midodrine 10 mg 09/03/24 15:15 09/05/24 05:30 Midodrine 5 Mg Tablet PO 10/03/24 15:14 Not Given TID BRIANA Ondansetron HCl 4 mg 09/01/24 17:59 09/04/24 15:52 Ondansetron Inj 2 Mg/Ml Inj 2 Ml IV 10/01/24 17:58 4 mg Q6H PRN Administration NAUSEA OR VOMITING Protocol Pantoprazole Sodium 40 mg 09/01/24 18:00 09/05/24 08:43 Pantoprazole Inj 40 Mg Vial IVP 10/01/24 17:59 40 mg QDAY BRIANA Administration Polyethylene Glycol 17 gm 09/05/24 09:45 09/05/24 10:00 Polyethylene Glycol 17 Gm Packet PO 10/05/24 09:44 17 gm QDAY BRIANA Administration Sennosides 1 tab 09/04/24 16:15 09/05/24 08:43 Senna/Docusate Sod 1 Tab Tablet PO 10/04/24 16:14 1 tab QDAY BRIANA Administration Protocol Tamsulosin HCl 0.4 mg 09/02/24 09:00 09/05/24 08:44 Tamsulosin Hcl 0.4 Mg Capsule PO 10/02/24 08:59 0.4 mg QDAY BRIANA Administration Tramadol HCl 50 mg 09/02/24 08:24 09/06/24 00:23 Tramadol Hcl 50 Mg Tablet PO 09/07/24 08:59 50 mg Q12HR PRN Administration PAIN SCALE 4-10(Mod-Sev Plan Patient is a 78-year-old male with past medical history significant for ESRD on PD since 2019 follows up with teletypesetter monitor Dr. Collado in [place], primary hypertension, hyperlipidemia, insulin-dependent diabetes mellitus type 2 and diabetic neuropathy presenting with a chief complaint of fever, chills and diarrhea. Patient will be admitted for workup and management of likely PD catheter associated peritonitis. 1. Likely PD catheter associated peritonitis 2. ESRD on peritoneal dialysis since 2019 Patient presented with 2-day history of fever, chills associated with vomiting and abdominal pain. On exam patient's abdomen grossly distended and warm to palpation. Abdomen pelvis CT completed on 09/01/2024 findings include: Primary hepatocellular disease, atrophic [place] kidneys, moderate free fluid in pelvis. No abdominal or pelvic abscess. [09/01/24] Peritoneal fluid analysis revealed PMNs >13,000 [09/03/24] Peritoneal fluid analysis revealed PMNs >9159 [09/06/24] Peritoneal fluid analysis revealed PMNs >524.8 Peritoneal fluid culture 09/01/2024 grew Acinetobacter baumannii sensitive to cefepime. Plan: ? Low consistent carb diet. - Patient cleared from Nephrology for discharge and advised to follow up with Outpatient Dialysis Nurse and Hostess Host Dr. Collado for PD directed antibiotics. - Pending Acute rehab placement ? Hostess Host, Dr Sinclair consulted and closely following the case. Appreciate recommendations 3. Insomnia 4. Likely hospital induced delirium As per patient's he had periods of agitation and confusion. Patient was previously on zolpidem 2.5 Mg p.o. at bedtime Plan: ? Continue melatonin 9 Mg p.o. at bedtime 5. Elevated lactic acid - resolved On admission lactic acid elevated at 3.5 up trended to 4 ---> 1.7 6. Primary hypertension 7. Hyperlipidemia On admission BP 104/53. Currently BP 157/71 Triglycerides 155, cholesterol 112, LDL 50, HDL 31 Plan: ? Will restart home medication Losartan 50 mg po daily from tomorrow ? Antihypertensives on hold for now in light of low BP 8. Insulin-dependent diabetes mellitus type 2 [9.2%] 9. Diabetic neuropathy 10. Legally blind in both eyes Patient on insulin 70/30 at home, unsure of dose [09/02/2024] HbA1c 9.2% Fasting blood glucose 450 Plan: ? Low consistent carb diet ? Continue lispro to 10U SC 3 times daily with meals ? Continue glargine to 30U units SC at bedtime ? Sliding scale insulin to cover for any blood glucose spikes 11. Pseudo hyponatremia NA 126, glucose 410 Corrected NA?131 Health maintenance: Disposition: Medically cleared for discharge. Pending rehab placement Diet: Low consistent carb Lines: pIVs GI Prophylaxis: Pantoprazole Thrombo Prophylaxis: Heparin 5000 U SC twice daily Code status: DNR Plan of care discussed with Attending Dr. Rogel and PGY3 Dr. Shawn Dickerson MD PGY 1 Attending Provider Attestation/Addendum 78-year-old male with multiple comorbidities including hypertension, hyperlipidemia, type 2 diabetes mellitus with subsequent end-stage renal disease on peritoneal dialysis who presented to the ER with fevers found to have PD catheter associated peritonitis subsequently started on IV antibiotic therapy. Patient underwent paracentesis with findings of peritonitis and discussed case with teletypesetter monitor who recommended keeping the PD catheter in place and recommended IV antibiotic therapy. As of now, plan to continue IV antibiotic therapy and peritoneal dialysis per nephrology input.patient mentation improving and plan to continue monitoring closely. Will reach out to nephrology regarding further input for PD catheter infection. On exam, no evidence of any purulent drainage from the catheter site. Tolerated PD dialysis last night. As of now, plan to continue IV antibiotic therapy and awaiting arrangement for intracatheter IV antibiotic therapy per nephrology team. I reviewed above note and agree with findings and plans. I have also personally examined the patient with medicine team and went over assessment and plan with medical team including internal communications writer and resident physician.
[2024-09-06] MEDS: POLYETHYLENE GLYCOL 17 GM PACKET PO (08:35)
[2024-09-06] MEDS: INSULIN LISPRO (AdmeLOG) 1 UNIT/0.01 ML UNIT 10 UNIT SC ×3 (08:43→17:46)
[2024-09-06] MEDS: INSULIN LISPRO (AdmeLOG) 1 UNIT/0.01 ML UNIT SC ×3 (08:45→17:47)
[2024-09-06] MEDS: guaiFENesin SYRUP 200 MG/10 ML UDC PO ×2 (08:47→22:21)
[2024-09-06] MEDS: ATORVASTATIN CALCIUM 10 MG TABLET PO (08:48)
[2024-09-06] MEDS: HEPARIN SOD INJ 5000 UNIT/ML VIAL SC ×2 (08:48→22:21)
[2024-09-06] MEDS: TAMSULOSIN HCL 0.4 MG CAPSULE PO (08:48)
[2024-09-06] MEDS: SENNA/DOCUSATE SOD 1 TAB TABLET PO (08:56)
[2024-09-06] MEDS: PANTOPRAZOLE INJ 40 MG VIAL IVP (08:56)
--- NOTE | 2024-09-06 09:16 | PC.SS ---
Follow up note: Blood sugar is high. Waiting for Dr. Sinclair's recommendations. Pt will return home upon dc.
--- NOTE | 2024-09-06 14:57 | ESPR_ITS ---
RE: DIANNA RANDALL : 1945 DATE OF SERVICE: 09/06/2024 S: Briefly, he is a 78-year-old Romeo speaking gentleman with past medical history significant for type 2 diabetes, hypertension, ESRD on CCPD since 2019 who presented to emergency room on 09/01/2024 with abdominal pain, fever and was found with peritonitis. The patient's peritoneal fluid grew Acinetobacter baumannii, which is sensitive to cefepime. The patient's abdominal pain is much better; however, still distended. CT of abdomen and pelvis showed nodular liver consistent with liver cirrhosis. PD fluid was reported to be very clear this morning. ALLERGIES: NO KNOWN DRUG ALLERGIES. CURRENT MEDICATIONS: 1. Acetaminophen. 2. Albuterol. 3. IP cefepime. 4. Gabapentin 300 mg p.o. t.i.d. 5. Heparin 5000 units subcutaneous b.i.d. O: General: He is awake and alert. Vital Signs: Blood pressure of 106/69, heart rate of 62. HEENT: Anicteric sclerae. Normocephalic. Neck: Supple. No JVD. Chest and Lungs: Symmetrical expansion. Clear breath sounds. Cardiac: Without murmur. Abdomen: Distended. No tenderness. Extremities: No edema. Laboratory Data: Hemoglobin 10.4, WBC 8600, platelet count 144,000. Sodium 125, potassium 3.9, chloride 89, CO2 of 26.8, BUN 40, creatinine 6.3, glucose 450, and calcium 9.6. A: 1. End-stage renal disease on peritoneal dialysis. 2. Acinetobacter baumannii peritonitis sensitive to IP cefepime. 3. Elevated lactic acid level, now improved, most likely secondary to sepsis. 4. Type 2 diabetes. 5. History of hypertension, now hypotension. 6. Anemia, not requiring ANNA. P: The patient might be discharged today and they were instructed to reach out to their PD nurses as soon as they get home. I already alerted Dr. Collado and he would like to continue IP cefepime 1 gram intraperitoneally for a total of 21 days. DT: 13:28:45 TT: 14:55:00 Ref: [id number] - TID: [id number]
[2024-09-06 15:13] LABS: Peritoneal Fluid WBC 656 /cmm
--- NOTE | 2024-09-06 16:08 | PC.SS ---
Addendum entered by Carley Gagnon 09/06/24 16:30: SS met with pt, son, and to inform them SNF are unable to accommodate peritoneal dialysis. SS also provided family with other d/c options to acute rehab or HH Services. Family is aware SS will attempt to seek placement for acute rehab which is only 2-3 weeks. Family is aware if pt is not a candidate for acute rehab then he will return home with HH. Original Note: [facility] [id number] [place] [address] DME - Wheelchairs Considering 09/06/2024 12:50 09/03/2024 10:05 Other ?(12) [facility] [place] [address] DME - Wheelchairs No 09/03/2024 10:22 09/03/2024 10:05 Unable to meet specialty/medical needs ?(1) [facility], [facility] [facility] [place] [address] Acute Rehab 09/06/2024 15:40 ?(2) [facility] [place] [address] Acute Rehab Considering 09/06/2024 16:01 09/06/2024 15:40 Verifying insurance ?(3) [facility] [address] [place], [place] [id number] Acute Rehab No 09/06/2024 15:46 09/06/2024 15:40 Not a covered benefit ?(1) [facility] [address] [place] [id number] Acute Rehab 09/06/2024 15:40 ?(2) [facility] [address] [place] [address] DME - Wheelchairs No 09/03/2024 10:23 09/03/2024 10:05 Other ?(2) [facility] [place], [place] [id number] Fdc Facility No 09/06/2024 12:50 09/06/2024 12:28 Unable to meet specialty/medical needs ?(2) [facility] [place] [address] Acute Rehab 09/06/2024 15:40 ?(2) [facility] - [facility] [address] [place] [id number] Acute Rehab Андрей Naeem [facility] [place], [place] [id number] Acute Rehab 09/06/2024 15:40 ?(2) [facility] [place] [address] DME - Wheelchairs No 09/03/2024 11:10 09/03/2024 10:05 Insurance out of network ?(3) [facility] [address] [place] [id number] Fdc Facility Considering 09/06/2024 12:44 09/06/2024 12:28 Pending nurse evaluation ?(1) [facility] [place] [id number] Fdc Facility No 09/06/2024 13:08 09/06/2024 12:28 Unable to meet specialty/medical needs ?(3) [facility] [facility] [address] [place] [address] DME - Wheelchairs 09/03/2024 10:05 ?(1) [facility] [place] [id number] Acute Rehab No 09/06/2024 15:47 09/06/2024 15:40 Insurance out of network ?(2) [facility] [place] [address] Fdc Facility No 09/06/2024 14:02 09/06/2024 12:28 Unable to meet specialty/medical needs ?(2) [facility] [place] [address] Fdc Facility No 09/06/2024 13:46 09/06/2024 12:28 Unable to meet specialty/medical needs ?(5) [facility] [address] [place] [id number] Fdc Facility No 09/06/2024 13:06 09/06/2024 12:28 Unable to meet specialty/medical needs ?(3) [facility] [place] [address] DME - Wheelchairs
[2024-09-06 16:15] LABS: Peritoneal Fluid Appearance Clear; Peritoneal Fluid Color Colorless
[2024-09-06 16:16] LABS: Peritoneal Fluid Mononuclear 20 %; Peritoneal Fluid Polynuclear 80 %; RBC,Peritoneal Fluid 66 /cmm
[2024-09-06] MEDS: LACTULOSE SYRUP 20 GM/30 ML UDC 60 GM PO (16:31)
[2024-09-06] MEDS: CEFEPIME INJ 1 GM VIAL PERIT (19:00)
[2024-09-06] MEDS: HEPARIN SOD INJ 1000 UNIT/ML VIAL 10 ML 3000 UNIT IV (19:09)
[2024-09-06] MEDS: MELATONIN 3 MG TABLET 9 MG PO (22:21)
[2024-09-06] MEDS: INSULIN GLARGINE (Lantus) 5 UNIT/0.05 ML (PER 5 UNITS) 30 UNIT SC (22:38)
[2024-09-07] VITALS (15 sets, daily range): BP systolic 85–126; BP diastolic 43–73; PULSE 58–80; RESP 12–99; TEMP 36.1–36.7; O2SAT 93–100
[2024-09-07 05:27] LABS: Basophils % (Auto) 0 % (0-2.5); Eosinophils # (Auto) 0.2 Thou/mm3 (0.0-0.5); Eosinophils % (Auto) 2 % (0-10); Hematocrit 32.1 % (41.0-53.0); Hemoglobin 10.9 g/dL (13.5-16.0); Immature Granulocytes % (Auto) 6 % (0-0); Immature Granulocytes Auto 0.58 Thou/mm3 (0.00-0.00); Lymphocytes % (Auto) 11 % (10-50); Mean Corpuscular Hemoglobin 28.5 pg (25.0-35.0); Mean Corpuscular Volume 84 fL (80-100); Monocytes # (Auto) 0.7 Thou/mm3 (0.0-0.8); Monocytes % (Auto) 8 % (0-12); Neutrophils # (Auto) 7.1 Thou/mm3 (1.8-7.7); Neutrophils % (Auto) 73 % (37-80); Nucleated Red Blood Cell # 0.06 Thou/mm3 (0.00-0.00); Nucleated Red Blood Cell % 1 /100 WBC (0); Platelet Count 122 Thou/mm3 (140-440); RDW Standard Deviation 44.1 fL (35.1-43.9); Red Blood Count 3.82 Miln/mm3 (4.50-5.90); White Blood Count 9.6 Thou/mm3 (3.8-10.6)
[2024-09-07] MEDS: GABAPENTIN 300 MG CAPSULE PO ×3 (05:42→21:17)
[2024-09-07] MEDS: traMADol HCL 50 MG TABLET PO (05:42)
[2024-09-07 06:43] LABS: Alanine Aminotransferase < 7 U/L (10-49); Albumin, Serum 2.7 gm/dL (3.4-4.8); Albumin/Globulin Ratio 0.9 (1.2-2.2); Alkaline Phosphatase 248 U/L (46-116); Anion Gap 9 (7-16); Aspartate Amino Transferase 33 U/L (0-34); BUN/Creatinine Ratio 6 Ratio (12-20); Bilirubin,Total 0.4 mg/dL (0.3-1.2); Blood Urea Nitrogen 40 mg/dL (9-23); Calcium 8.9 mg/dL (8.3-10.6); Calcium (Corrected) 9.9 mg/dL (8.5-10.1); Carbon Dioxide 25.3 mMol/L (20.0-31.0); Chloride 92 mMol/L (98-107); Creatinine (Component) 6.4 mg/dL (0.6-1.3); Globulin 2.9 gm/dL (2.3-3.5); Glucose 317 mg/dL (74-106); Magnesium 1.8 mg/dL (1.6-2.6); Osmolality,Calculated 275 (275-295); Phosphorous 3.3 mg/dL (2.4-5.1); Potassium 3.5 mMol/L (3.4-5.1); Sodium 126 mMol/L (136-145); Total Protein 5.6 gm/dL (5.7-8.2); eGFR 8 See Note
[2024-09-07] MEDS: ALBUTEROL/IPRATROPIUM (Duoneb) RT SOL 3 ML NEBU INH ×3 (06:54→23:46)
[2024-09-07] MEDS: INSULIN LISPRO (AdmeLOG) 1 UNIT/0.01 ML UNIT 10 UNIT SC (07:25)
[2024-09-07] MEDS: INSULIN LISPRO (AdmeLOG) 1 UNIT/0.01 ML UNIT SC (07:26)
[2024-09-07] MEDS: POLYETHYLENE GLYCOL 17 GM PACKET PO (08:55)
[2024-09-07] MEDS: guaiFENesin SYRUP 200 MG/10 ML UDC PO ×2 (08:55→21:17)
[2024-09-07] MEDS: LOSARTAN POTASSIUM 25 MG TABLET 50 MG PO (08:56)
[2024-09-07] MEDS: ACETAMINOPHEN 325 MG TABLET 650 MG PO (08:56)
[2024-09-07] MEDS: HEPARIN SOD INJ 5000 UNIT/ML VIAL SC ×2 (08:57→21:26)
[2024-09-07] MEDS: ATORVASTATIN CALCIUM 10 MG TABLET PO (08:57)
[2024-09-07] MEDS: PANTOPRAZOLE INJ 40 MG VIAL IVP (08:57)
[2024-09-07] MEDS: TAMSULOSIN HCL 0.4 MG CAPSULE PO (08:57)
[2024-09-07] MEDS: SENNA/DOCUSATE SOD 1 TAB TABLET PO (08:57)
--- NOTE | 2024-09-07 08:58 | PC.SS ---
WheelChairs ?Patients diagnosis creates mobility limitations that significantly impairs ability to participate in the patient?s activities of daily living either in their entirety, or in a reasonable time frame in the home and the patient?s mobility limitations can not be sufficiently resolved with an appropriately fitted cane or walker. Also the use of a manual wheelchair will sufficiently improve patient?s ability to participate in the activities of daily living in the home and the patient is willing to use the wheelchair that is provided in the home. The patient has some one in the home that is available, willing and able to provide assistance with the wheelchair. ?Hospital Bed Patient?s diagnosis requires positioning of the head or upper body to be elevated more than 30 degrees. Also the diagnosis requires positioning in order to alleviate pain and if the patient requires frequent changes in the body positioning and/or has an immediate need for change in the body position. Pillows and wedges have been considered and ruled out. Bedside Commode Patient is physically incapable of utilizing regular toilet facilities because his or her diagnosis confines the patient to a single room. Patient is confined to a single level, and there is no toilet on that level; patient cannot access the toilet facilities in a timely manner due to lack of ambulation.
[2024-09-07] MEDS: MG HYD/AL HYD/SIME (Maalox Reg) SUSP 30 ML UDC PO (11:36)
--- NOTE | 2024-09-07 11:44 | ESDS_ITS ---
<Statement entered by Filemon Escobar MD - 09/09/24 10:43> Agree with plan and examination finding on the note below. Patient seen and examined at bedside today. Labs and imaging reviewed. Patient care discussed with my attending and co-resident Dr. Dickerson. Planned Discharge Date 09/07/24 DS: Providers Provider Date of admission: 09/01/24 17:55 Primary care physician: Physician No Primary/Family Admitting Provider: Chandler Rodriguez DO Attending Provider on Admission: Jaya Rogel MD Consults: 09/01/24 17:51 Consult to Nephrology Stat Comment: Consulting Provider: Aletha Sinclair 09/01/24 20:53 Referral Physical Therapy Routine Comment: Physician Instructions: Referral Registered Dietitian Routine Comment: Referral Respiratory Therapy Routine Comment: 09/06/24 07:24 Referral Registered Dietitian Routine Comment: Attending Provider on DC: Randal Dickerson MD Discharging Provider: Randal Dickerson MD DS: Diagnosis Problem List Completed Was Problem List Reviewed/Reconciled?: Yes Hospital Course Hospital Course Hospital course: Patient is a 78-year-old male with past medical history significant for ESRD on PD since 2019 follows up with cotton grower Dr. Collado in [place], primary hypertension, hyperlipidemia, insulin-dependent diabetes mellitus type 2 and diabetic neuropathy presenting with a chief complaint of fever, chills and diarrhea. Patient will be admitted for workup and management of likely PD catheter associated peritonitis. With regards to patient's PD catheter associated peritonitis, initial peritoneal fluid analysis revealed PMNs >13,000. Nephrology, Dr Sinclair was consulted and started patient on PD directed antibiotics with cefepime and cefazolin initially. Peritoneal fluid culture grew Acetobacter baumannii pansensitive to antibiotics including cefepime. Subsequently antibiotic coverage was narrowed. Nephrology cleared patient for discharge and recommended to follow-up with his primary cotton grower Dr. Romeo upon discharge. However patient's is unable to care for him at home as she is his sole caregiver. Patient was assessed by physiotherapy and acute rehab was recommended for peritoneal dialysis catheter directed antibiotics as well as peritoneal dialysis. Patient developed insomnia and hospital induced delirium during his stay. He was started on melatonin 9 Mg p.o. at bedtime and his symptoms subsequently subsided. Patient is now alert and oriented x 3 and back to his baseline. For patient's insulin-dependent diabetes mellitus type 2. His A1c was found to be 9.2% and his blood glucose was a challenge during hospitalization. Eventually patient insulin lispro was increased to 20units 3 times daily with meals and insulin glargine 60 units SC at bedtime along with resistant sliding scale insulin lispro. All patient's labs are now returning to his baseline. Patient is now clinically stable and fit for discharge to acute rehab for peritoneal dialysis and PD catheter directed antibiotics. Discharge diagnoses: 1. PD catheter associated peritonitis?resolving 2. ESRD on peritoneal dialysis [2019] 3. Insomnia 4. Likely hospital induced delirium?resolved 5. Elevated lactic acid?resolved 6. Primary hypertension 7. Hyperlipidemia 8. Insulin-dependent diabetes mellitus type 2 [9.2%] 9. Diabetic neuropathy 10. Legally blind secondary to diabetic retinopathy 11. Pseudohyponatremia Discharge plan: ? Please follow-up with your cotton grower, Dr. Collado and dialysis nurse upon discharge. ? Continue peritoneal dialysis with antibiotics at acute rehab facility as directed by nephrology. ? You have been started on insulin lispro 20 units 3 times daily with meals. ? You have been started on insulin glargine 60 units SC at bedtime ? Sliding scale insulin lispro to cover for any blood glucose spikes ? Continue the rest of your home medication as before - Follow up with your primary care physician within 1 week of discharge. If you do not have a primary care physician, please follow up with the [facility] Residents clinic ([phone]) ? If you experience any new, worsening or persistent symptoms either call your primary doctor, or dial 911 or present to the emergency department. We are grateful to be able to participate in Mr. Beard's care. We wish him the best. Plan of care discussed with Attending Dr. Rogel and PGY3 Dr. Shawn Dickerson MD PGY 1 Time Spent with Patient Time attestation: Total time spent providing and/or coordinating discharge services: Time spent: Greater than 30 minutes (36) Exam Vital Signs Temp Pulse Resp BP Pulse Ox O2 Del Method 97.2 F 80 18 121/73 97 Room Air 09/07/24 08:00 09/07/24 08:56 09/07/24 08:00 09/07/24 08:56 09/07/24 08:00 09/07/24 08:00 Narrative Exam Constitutional Alert, oriented x 3 and comfortable. Elderly male, obese HEENT Legally blind in both eyes. Patent nares. Trachea midline Respiratory Chest normal on inspection and clear auscultation bilaterally Cardiovascular S1 and S2 audible, RRR. No murmurs carotid bruit. No gross JVD. Abdominal Soft, distended, Non-tender to palpation in all quadrants, cool to touch, bowel sounds auscultated - improving Genitourinary No bladder tenderness, no flank pain. Normal to palpation Musculoskeletal Extremities tone within normal limits. No LE edema. Neurological CN II - XII grossly intact. Extremity motor and sensation grossly intact. Skin Warm, dry and intact. No apparent lesions. Psychiatric Patient has good affect, is cooperative Discharge Plan Plan Patient Disposition: [facility] Acute Care Fac Care Plan Goals: ? Please follow-up with your cotton grower, Dr. Collado and dialysis nurse upon discharge. ? Continue peritoneal dialysis with antibiotics at acute rehab facility as directed by nephrology. ? You have been started on insulin lispro 20 units 3 times daily with meals. ? You have been started on insulin glargine 60 units SC at bedtime ? Sliding scale insulin lispro to cover for any blood glucose spikes ? Continue the rest of your home medication as before - Follow up with your primary care physician within 1 week of discharge. If you do not have a primary care physician, please follow up with the [facility] Residents clinic ([phone]) ? If you experience any new, worsening or persistent symptoms either call your primary doctor, or dial 911 or present to the emergency department. Prescriptions/Referrals Prescriptions/Med Rec: No Action atorvastatin 10 mg Tablet 10 mg PO QDAY insulin aspart U-100 [Novolog U-100 Insulin aspart] 100 unit/mL Solution 1 sliding scale dose SUBCUT USEASDIRECTD gabapentin 300 mg Capsule 300 mg PO TID omeprazole 20 mg Capsule,Delayed Release(Dr/Ec) 40 mg PO QDAY calcium acetate(phosphat bind) 667 mg capsule 1,334 mg PO TIDWMEAL Patient Comments: take 2 capsules by mouth WITH MEALS AND 1 CAPSULE WITH SNACKS tramadol 50 mg tablet 50 mg PO Q12H tamsulosin [Flomax] 0.4 mg capsule 0.4 mg PO QDAY multi-vitamin no minerals 60 - 150 tab PO DAILY carvedilol 6.25 mg tablet 6.25 mg PO Q12H Rx Instructions: must administer with a meal/food losartan [Cozaar] 50 mg tablet 50 mg PO QDAY Referrals: No Primary/Family,Physician [Primary Care Provider] - Patient/Caregiver Discharge Instructions Print Language: Tunisian Stand Alone Forms: Anais Award Info., Patient Portal Info Letter Quality Discharge Quality Measures VTE prophylaxis Attestestation Atttristaation 78-year-old male with multiple comorbidities including hypertension, hyperlipidemia, type 2 diabetes mellitus with subsequent end-stage renal disease on peritoneal dialysis who presented to the ER with fevers found to have PD catheter associated peritonitis subsequently started on IV antibiotic therapy. Patient underwent paracentesis with findings of peritonitis and discussed case with cotton grower who recommended keeping the PD catheter in place and recommended IV antibiotic therapy. As of now, plan to continue IV antibiotic therapy and peritoneal dialysis per nephrology input.patient mentation improving and plan to continue monitoring closely. Will reach out to nephrology regarding further input for PD catheter infection. On exam, no evidence of any purulent drainage from the catheter site. Tolerated PD dialysis last night. As of now, plan to continue IV antibiotic therapy and awaiting arrangement for intracatheter IV antibiotic therapy per nephrology team. As of now, patient is alert and oriented to name, date of and place. States that he is doing well and awaiting arrangement for IV antibiotic via the PD catheter. Once arranged we will discharge patient. I reviewed above note and agree with zachary becerra and plans. I have also personally examined the patient with medicine team and went over assessment and plan with medical team including advisory internship and resident physician.
--- NOTE | 2024-09-07 12:24 | PC.SS ---
Addendum entered by Carley Gagnon 09/07/24 14:52: SS has also faxed inquiry to patient's health insurance, at fax# [phone] which was provided by Emilie Romo from provider services. Addendum entered by Carley Gagnon 09/07/24 14:46: [facility] SS faxed insurance authorization form to [facility] [employer] fax# [phone] Original Note: SS met with Rn, Coretta and to explained [facility] in [place] has accepted pt. is requesting [facility] in [place]. is aware they have declined. SS has informed patient's son. is agreeable for [facility] in [place]. SS spoke to Svitlana who explained they can accept pt once his glucose levels are stable, under 200 and pt does not require a PASRR assessment. SS also spoke to Priti from [facility] who is requesting and explained [facility] has to initiate insurance authorization. SS has explained the accepting facility initiates and submit the insurance authorization request and hospital can call the health insurance to follow up. Priti and Svitlana state they will fax over the insurance request form and for SS to submit to patient's health insurance. SS has spoken to Bella Cordero at [phone], from patient's health insurance who transferred SS to Emilie Jeff from provider services for authorization and she provided fax# [phone].
[2024-09-07] MEDS: MIDODRINE 5 MG TABLET 10 MG PO (12:54)
--- NOTE | 2024-09-07 13:08 | EKG_ITS ---
[facility] Test Date: 2024-09-07 Pat Name: DIANNA RANDALL Department: Room: S378A Gender: Male Customer Account Technician: CHRISTOPHER : 1945 Requested By: Paula Melendez Order Number: [id number] Reading MD: Paula Melendez Measurements Intervals [place] Rate: 61 P: [place]: QRS: -15 QRSD: 102 T: 140 QT: 458 QTc: 464 Interpretive Statements ATRIAL FLUTTER/TACHYCARDIA ST DEVIATION AND MODERATE T-WAVE ABNORMALITY, CONSIDER LATERAL ISCHEMIA [-0.1+ mV T WAVE IN I/aVL/V5/V6] Compared to ECG 09/03/2024 16:40:52 Atrial fibrillation no longer present Intraventricular conduction delay no longer present T-wave abnormality still present Possible ischemia still present /store/S0/[id number]/[id number].pdf
[2024-09-07] MEDS: ALBUMIN HUMAN 25% IVPB 25 GM/100 ML BTL IV (13:21)
[2024-09-07 13:32] LABS: Base Excess 0 (-3-3); HCO3 26 mEq/L (20-26); Inspired Oxygen, FIO2 97 %; O2 Saturation 97 % (91-98); PCO2 47 mmHg (32.0-48.0); PO2 79 mmHg (83-108); pH, Arterial 7.35 (7.35-7.45)
[2024-09-07 13:33] LABS: Lactate (Lactic Acid) 1.8 mMol/L (0.4-2.0)
[2024-09-07 13:36] LABS: Allen Test Not Performed; Puncture Site Right Radial
[2024-09-07 13:38] LABS: Basophils % (Auto) 0 % (0-2.5); Eosinophils # (Auto) 0.3 Thou/mm3 (0.0-0.5); Eosinophils % (Auto) 3 % (0-10); Hematocrit 29.7 % (41.0-53.0); Hemoglobin 10.1 g/dL (13.5-16.0); Immature Granulocytes % (Auto) 5 % (0-0); Immature Granulocytes Auto 0.57 Thou/mm3 (0.00-0.00); Lymphocytes # (Auto) 1.2 Thou/mm3 (1.0-4.8); Lymphocytes % (Auto) 11 % (10-50); Mean Corpuscular Hemoglobin 28.6 pg (25.0-35.0); Mean Corpuscular Volume 84 fL (80-100); Monocytes # (Auto) 0.8 Thou/mm3 (0.0-0.8); Monocytes % (Auto) 7 % (0-12); Neutrophils # (Auto) 7.7 Thou/mm3 (1.8-7.7); Neutrophils % (Auto) 73 % (37-80); Nucleated Red Blood Cell # 0.08 Thou/mm3 (0.00-0.00); Nucleated Red Blood Cell % 1 /100 WBC (0); Platelet Count 132 Thou/mm3 (140-440); RDW Standard Deviation 43.8 fL (35.1-43.9); Red Blood Count 3.53 Miln/mm3 (4.50-5.90); White Blood Count 10.6 Thou/mm3 (3.8-10.6)
--- NOTE | 2024-09-07 13:40 | PC.NURSE ---
RR called pt was found to be lethargic, hypotensive, and periods of bradycardia.
--- NOTE | 2024-09-07 13:40 | PC.NURSE ---
RR called pt appeared to be lethargic, hypotensive and episodes of bradycardia.
[2024-09-07 13:56] LABS: Ammonia < 10 uMol/L (11-32)
[2024-09-07 14:04] LABS: Alanine Aminotransferase < 7 U/L (10-49); Albumin, Serum 2.5 gm/dL (3.4-4.8); Albumin/Globulin Ratio 0.9 (1.2-2.2); Alkaline Phosphatase 246 U/L (46-116); Anion Gap 6 (7-16); Aspartate Amino Transferase 34 U/L (0-34); BUN/Creatinine Ratio 6 Ratio (12-20); Bilirubin,Total 0.3 mg/dL (0.3-1.2); Blood Urea Nitrogen 43 mg/dL (9-23); Calcium 8.7 mg/dL (8.3-10.6); Calcium (Corrected) 9.9 mg/dL (8.5-10.1); Carbon Dioxide 25.7 mMol/L (20.0-31.0); Chloride 94 mMol/L (98-107); Creatinine (Component) 6.9 mg/dL (0.6-1.3); Estimated Creatinine Clearance 9.3 mL/min (>60); Globulin 2.9 gm/dL (2.3-3.5); Glucose 175 mg/dL (74-106); Magnesium 1.8 mg/dL (1.6-2.6); Osmolality,Calculated 268 (275-295); Phosphorous 3.5 mg/dL (2.4-5.1); Potassium 3.1 mMol/L (3.4-5.1); Sodium 126 mMol/L (136-145); Total Protein 5.4 gm/dL (5.7-8.2); eGFR 8 See Note
--- NOTE | 2024-09-07 14:05 | ESPR_ITS ---
<Statement entered by Filemon Escobar MD - 09/09/24 10:42> Agree with plan and examination finding on the note below. Patient seen and examined at bedside today. Labs and imaging reviewed. Patient care discussed with my attending and co-resident Dr. Dickerson. Documentation for date of: 09/07/24 Subjective Subjective Interval history: Patient is Romeo speaking and interaction facilitated by registered healthcare outsole skiver. Patient was seen and examined at bedside this AM. No acute exents overnight. Patient tolerating diet, adequate urine output and mentation is at baseline. Patient complains of feeling bloated. Had a bowel movement yesterday. Patient required 96 units of insulin in past 24 hours. Increase insulin glargine to 60 units SC at bedtime and insulin lispro 20 units 3 times daily with meals Patient cleared from Nephrology for discharge and advised to follow up with Outpatient Dialysis Nurse and Board Lining Machine Operator Dr. Collado. Pending acute rehab placement. Exam Vital Signs Temp Pulse Resp BP Pulse Ox O2 Del Method 98.0 F 58 L 15 101/52 L 93 L Room Air 09/07/24 12:34 09/07/24 13:42 09/07/24 11:45 09/07/24 13:42 09/07/24 12:34 09/07/24 12:34 Narrative Exam Constitutional Alert, oriented x 3 and comfortable. Elderly male, obese HEENT Legally blind in both eyes. Patent nares. Trachea midline Respiratory Chest normal on inspection and clear auscultation bilaterally Cardiovascular S1 and S2 audible, RRR. No murmurs carotid bruit. No gross JVD. Abdominal Soft, distended, Non-tender to palpation in all quadrants, cool to touch, bowel sounds auscultated - improving Genitourinary No bladder tenderness, no flank pain. Normal to palpation Musculoskeletal Extremities tone within normal limits. No LE edema. Neurological CN II - XII grossly intact. Extremity motor and sensation grossly intact. Skin Warm, dry and intact. No apparent lesions. Psychiatric Patient has good affect, is cooperative Objective Labs 09/10/24 04:30 09/10/24 04:30 Labs: Laboratory Results - last 24 hr 09/06/24 09/07/24 09/07/24 11:25 04:53 13:21 WBC 9.6 RBC 3.82 L Hgb 10.9 L Hct 32.1 L MCV 84 MCH 28.5 MCHC 34.0 RDW Std Deviation 44.1 H Plt Count 122 L Neut % (Auto) 73 Lymph % (Auto) 11 [place] % (Auto) 8 Eos % (Auto) 2 Baso % (Auto) 0 Neut # (Auto) 7.1 Lymph # (Auto) 1.0 [place] # (Auto) 0.7 Eos # (Auto) 0.2 Baso # (Auto) 0.0 Immature Gran # (Auto) 0.58 H Absolute Nucleated RBC 0.06 H Immature Gran % 6 H Nucleated RBC % 1 H Puncture Site Right Radial ABG pH 7.35 ABG pCO2 47 ABG pO2 79 L ABG HCO3 26 ABG O2 Saturation 97 ABG Base Excess 0 FiO2 97 Sodium 126 L Potassium 3.5 Chloride 92 L Carbon Dioxide 25.3 Anion Gap 9 BUN 40 H Creatinine 6.4 H* Estim Creat Clear Calc 10.0 L eGFR 8 L* BUN/Creatinine Ratio 6 L Glucose 317 H D Calculated Osmolality 275 Lactic Acid Calcium 8.9 Corrected Calcium 9.9 Phosphorus 3.3 Magnesium 1.8 Total Bilirubin 0.4 AST 33 ALT < 7 L Alkaline Phosphatase 248 H D Ammonia Total Protein 5.6 L Albumin 2.7 L Globulin 2.9 Albumin/Globulin Ratio 0.9 L Peritoneal Color Colorless Peritoneal Appearance Clear Peritoneal WBC 656 Peritoneal RBC 66 Periton Polynucl WBCs 80 Periton Mononucl WBCs 20 09/07/24 13:22 WBC 10.6 RBC 3.53 L Hgb 10.1 L Hct 29.7 L MCV 84 MCH 28.6 MCHC 34.0 RDW Std Deviation 43.8 Plt Count 132 L Neut % (Auto) 73 Lymph % (Auto) 11 [place] % (Auto) 7 Eos % (Auto) 3 Baso % (Auto) 0 Neut # (Auto) 7.7 Lymph # (Auto) 1.2 [place] # (Auto) 0.8 Eos # (Auto) 0.3 Baso # (Auto) 0.0 Immature Gran # (Auto) 0.57 H Absolute Nucleated RBC 0.08 H Immature Gran % 5 H Nucleated RBC % 1 H Puncture Site ABG pH ABG pCO2 ABG pO2 ABG HCO3 ABG O2 Saturation ABG Base Excess FiO2 Sodium Potassium Chloride Carbon Dioxide Anion Gap BUN Creatinine Estim Creat Clear Calc eGFR BUN/Creatinine Ratio Glucose Calculated Osmolality Lactic Acid 1.8 Calcium Corrected Calcium Phosphorus Magnesium Total Bilirubin AST ALT Alkaline Phosphatase Ammonia < 10 L Total Protein Albumin Globulin Albumin/Globulin Ratio Peritoneal Color Peritoneal Appearance Peritoneal WBC Peritoneal RBC Periton Polynucl WBCs Periton Mononucl WBCs ABG Interpretation ABG results: 09/07/24 13:21 ABG pH 7.35 ABG pCO2 47 ABG pO2 79 L ABG HCO3 26 ABG O2 Saturation 97 ABG Base Excess 0 Quality Measures Quality Measures VTE prophylaxis Advance care planning discussed with:: patient Assessment & Plan Assessment Current Active Medications: Generic Name Dose Route Start Last Admin Trade Name Freq PRN Reason Stop Dose Admin Acetaminophen 650 mg 09/01/24 17:55 09/07/24 08:56 Acetaminophen 325 Mg Tablet PO 10/01/24 17:54 650 mg Q6H PRN Administration Fever >100.3 or pain Protocol Hydrocodone Bitart/Acetaminophen 1 tab 09/03/24 09:28 Hydrocodone/Apap 5/325 Tablet PO 09/08/24 09:27 Q4HR PRN BREAKTHROUGH PAIN Protocol Albuterol/Ipratropium 3 ml 09/05/24 22:00 09/07/24 06:54 Albuterol/Ipratropium (Duoneb) Rt Jessenia 3 Ml Nebu INH 10/05/24 21:59 3 ml Q8HR BRIANA Administration Atorvastatin Calcium 10 mg 09/02/24 09:00 09/07/24 08:57 Atorvastatin Calcium 10 Mg Tablet PO 10/02/24 08:59 10 mg QDAY BRIANA Administration Dextrose 25 ml 09/05/24 04:34 Dextrose 50%-Water Inj 50 Ml Syringe IV 10/05/24 04:33 Q15MIN PRN BG 50-70 responsive npo pt Dextrose 50 ml 09/05/24 04:34 Dextrose 50%-Water Inj 50 Ml Syringe IV 10/05/24 04:33 Q15MIN PRN BG <50 OR BG <70 & pt unresponsive Gabapentin 300 mg 09/02/24 14:00 09/07/24 05:42 Gabapentin 300 Mg Capsule PO 10/02/24 13:59 300 mg TID BRIANA Administration Glucagon 1 mg 09/05/24 04:34 Glucagon Inj 1 Mg Vial IM Q15MIN PRN BG <70, and no IV access Guaifenesin 200 mg 09/05/24 21:00 09/07/24 08:55 Guaifenesin Syrup 200 Mg/10 Ml Udc PO 10/05/24 20:59 200 mg BID BRIANA Administration Protocol Heparin Sodium (Porcine) 5,000 unit 09/01/24 21:00 09/07/24 08:57 Heparin Sod Inj 5000 Unit/Ml Vial SC 09/15/24 20:59 5,000 unit BID BRIANA Administration Heparin Sodium (Porcine) 3,000 unit 09/06/24 19:01 09/06/24 19:09 Heparin Sod Inj 1000 Unit/Ml Vial 10 Ml IV 09/20/24 19:00 3,000 unit X1 PRN Administration DIALYSIS Albumin Human 25 gm in 100 mls @ 100 mls/hr 09/07/24 13:18 09/07/24 13:21 Albuminar-25 Ivpb IV 09/07/24 14:17 100 mls/hr X1 ONE Administration Insulin Glargine 60 unit 09/07/24 21:00 Insulin Glargine (Lantus) 5 Unit/0.05 Ml (Per 5 Units) SC 10/07/24 20:59 HS BRIANA Insulin Human Lispro 20 unit 09/07/24 12:00 09/07/24 12:57 Insulin Lispro (Admelog) 1 Unit/0.01 Ml Unit SC 10/07/24 11:59 Not Given TIDWM BRIANA Insulin Human Lispro 0 unit 09/07/24 10:35 09/07/24 12:58 Insulin Lispro (Admelog) 1 Unit/0.01 Ml Unit SC 10/02/24 07:29 Not Given AC BRIANA Protocol Losartan Potassium 50 mg 09/07/24 09:00 09/07/24 08:56 Losartan Potassium 25 Mg Tablet PO 10/07/24 08:59 50 mg QDAY BRIANA Administration Melatonin 9 mg 09/05/24 21:00 09/06/24 22:21 Melatonin 3 Mg Tablet PO 10/05/24 20:59 9 mg HS BRIANA Administration Midodrine 10 mg 09/03/24 15:15 09/05/24 05:30 Midodrine 5 Mg Tablet PO 10/03/24 15:14 Not Given TID BRIANA Ondansetron HCl 4 mg 09/01/24 17:59 09/04/24 15:52 Ondansetron Inj 2 Mg/Ml Inj 2 Ml IV 10/01/24 17:58 4 mg Q6H PRN Administration NAUSEA OR VOMITING Protocol Pantoprazole Sodium 40 mg 09/01/24 18:00 09/07/24 08:57 Pantoprazole Inj 40 Mg Vial IVP 10/01/24 17:59 40 mg QDAY BRIANA Administration Polyethylene Glycol 17 gm 09/05/24 09:45 09/07/24 08:55 Polyethylene Glycol 17 Gm Packet PO 10/05/24 09:44 17 gm QDAY BIRANA Administration Sennosides 1 tab 09/04/24 16:15 09/07/24 08:57 Senna/Docusate Sod 1 Tab Tablet PO 10/04/24 16:14 1 tab QDAY BRIANA Administration Protocol Tamsulosin HCl 0.4 mg 09/02/24 09:00 09/07/24 08:57 Tamsulosin Hcl 0.4 Mg Capsule PO 10/02/24 08:59 0.4 mg QDAY BRIANA Administration Plan Patient is a 78-year-old male with past medical history significant for ESRD on PD since 2019 follows up with planning intern Dr. Collado in [place], primary hypertension, hyperlipidemia, insulin-dependent diabetes mellitus type 2 and diabetic neuropathy presenting with a chief complaint of fever, chills and diarrhea. Patient will be admitted for workup and management of likely PD catheter associated peritonitis. 1. Likely PD catheter associated peritonitis 2. ESRD on peritoneal dialysis since 2019 Patient presented with 2-day history of fever, chills associated with vomiting and abdominal pain. On exam patient's abdomen grossly distended and warm to palpation. Abdomen pelvis CT completed on 09/01/2024 findings include: Primary hepatocellular disease, atrophic picayune kidneys, moderate free fluid in pelvis. No abdominal or pelvic abscess. [09/01/24] Peritoneal fluid analysis revealed PMNs >13,000 [09/03/24] Peritoneal fluid analysis revealed PMNs >9159 [09/06/24] Peritoneal fluid analysis revealed PMNs >524.8 Peritoneal fluid culture 09/01/2024 grew Acinetobacter baumannii sensitive to cefepime. Plan: ? Low consistent carb diet. - Patient cleared from Nephrology for discharge and advised to follow up with Outpatient Dialysis Nurse and Board Lining Machine Operator Dr. Collado for PD directed antibiotics. - Pending Acute rehab placement ? Board Lining Machine Operator, Dr Sinclair consulted and closely following the case. Appreciate recommendations 3. Insomnia 4. Likely hospital induced delirium As per patient's he had periods of agitation and confusion. Patient was previously on zolpidem 2.5 Mg p.o. at bedtime Plan: ? Continue melatonin 9 Mg p.o. at bedtime 5. Elevated lactic acid - resolved On admission lactic acid elevated at 3.5 up trended to 4 ---> 1.7 6. Primary hypertension 7. Hyperlipidemia On admission BP 104/53. Currently BP 157/71 Triglycerides 155, cholesterol 112, LDL 50, HDL 31 Plan: ? Will restart home medication Losartan 50 mg po daily from tomorrow ? Antihypertensives on hold for now in light of low BP 8. Insulin-dependent diabetes mellitus type 2 [9.2%] 9. Diabetic neuropathy 10. Legally blind in both eyes Patient on insulin 70/30 at home, unsure of dose [09/02/2024] HbA1c 9.2% Fasting blood glucose 450 Plan: ? Low consistent carb diet ? Continue lispro to 10U SC 3 times daily with meals ? Continue glargine to 30U units SC at bedtime ? Sliding scale insulin to cover for any blood glucose spikes 11. Pseudo hyponatremia NA 126, glucose 410 Corrected NA?131 12. Hypotension Rapid response was called today for blood pressure of 80s/40s Midodrine 10 Mg p.o. x 1 given Plan: ? Midodrine 10 Mg p.o. 3 times daily as needed for MAP <65 Health maintenance: Disposition: Medically cleared for discharge. Pending rehab placement Diet: Low consistent carb Lines: pIVs GI Prophylaxis: Pantoprazole Thrombo Prophylaxis: Heparin 5000 U SC twice daily Code status: DNR Plan of care discussed with Attending Dr. Rogel and PGY3 Dr. Shawn Dickerson MD PGY 1 Attending Provider Attestation/Addendum 78-year-old male with multiple comorbidities including hypertension, hyperlipidemia, type 2 diabetes mellitus with subsequent end-stage renal disease on peritoneal dialysis who presented to the ER with fevers found to have PD catheter associated peritonitis subsequently started on IV antibiotic therapy. Patient underwent paracentesis with findings of peritonitis and discussed case with planning intern who recommended keeping the PD catheter in place and recommended IV antibiotic therapy. As of now, plan to continue IV antibiotic therapy and peritoneal dialysis per nephrology input.patient mentation improving and plan to continue monitoring closely. Will reach out to nephrology regarding further input for PD catheter infection. On exam, no evidence of any purulent drainage from the catheter site. Tolerated PD dialysis last night. As of now, plan to continue IV antibiotic therapy and awaiting arrangement for intracatheter IV antibiotic therapy per nephrology team. As of now, patient is alert and oriented to name, date of and place. States that he is doing well and awaiting arrangement for IV antibiotic via the PD catheter. Once arranged we will discharge patient. I reviewed above note and agree with findings and plans. I have also personally examined the patient with medicine team and went over assessment and plan with medical team including mba intern and resident physician.
[2024-09-07] MEDS: POTASSIUM CHLORIDE 20 mEq TABCR 40 MEQ PO (16:55)
[2024-09-07] MEDS: CEFEPIME INJ 1 GM VIAL PERIT ×2 (19:03→19:04)
[2024-09-07] MEDS: MELATONIN 3 MG TABLET 9 MG PO (21:17)
[2024-09-07] MEDS: INSULIN GLARGINE (Lantus) 5 UNIT/0.05 ML (PER 5 UNITS) 60 UNIT SC (21:40)
[2024-09-08] VITALS (11 sets, daily range): BP systolic 97–130; BP diastolic 44–70; PULSE 52–70; RESP 14–98; TEMP 36–36.4; O2SAT 97–100; BMI 12.0
--- NOTE | 2024-09-08 00:46 | PC.NURSE ---
DIALYSIS MACHINE IS BEEPING.PATIENT REPOSITION,STOP PRESSED AND GO PRESSED BUT IT IS TILL BEEPING.DIALYSIS NURSE MADE AWARE THROUGH PHONE AND GIVE INSTRUCTION BUT MACHINE STILL BEEPING.DALYSIS NURSE CONTACTED THROUGH PHONE AGAIN THE GIVE INSTRUCTION TO TURN OFF AND SHE WILL COME THIS AM.
[2024-09-08] MEDS: INSULIN LISPRO (AdmeLOG) 1 UNIT/0.01 ML UNIT 5 UNIT SC (02:56)
[2024-09-08] MEDS: GABAPENTIN 300 MG CAPSULE PO ×2 (05:24→14:22)
[2024-09-08] MEDS: ALBUTEROL/IPRATROPIUM (Duoneb) RT SOL 3 ML NEBU INH ×3 (06:07→22:59)
[2024-09-08 06:08] LABS: Basophils % (Auto) 0 % (0-2.5); Eosinophils # (Auto) 0.4 Thou/mm3 (0.0-0.5); Eosinophils % (Auto) 4 % (0-10); Hemoglobin 11.1 g/dL (13.5-16.0); Immature Granulocytes % (Auto) 8 % (0-0); Immature Granulocytes Auto 0.78 Thou/mm3 (0.00-0.00); Lymphocytes # (Auto) 1.2 Thou/mm3 (1.0-4.8); Lymphocytes % (Auto) 13 % (10-50); Mean Corpuscular HGB Conc 33.6 g/dl (31.0-37.0); Mean Corpuscular Hemoglobin 28.5 pg (25.0-35.0); Mean Corpuscular Volume 85 fL (80-100); Monocytes # (Auto) 0.6 Thou/mm3 (0.0-0.8); Monocytes % (Auto) 6 % (0-12); Neutrophils # (Auto) 6.9 Thou/mm3 (1.8-7.7); Neutrophils % (Auto) 69 % (37-80); Nucleated Red Blood Cell # 0.07 Thou/mm3 (0.00-0.00); Nucleated Red Blood Cell % 1 /100 WBC (0); Platelet Count 125 Thou/mm3 (140-440); RDW Standard Deviation 44.7 fL (35.1-43.9); Red Blood Count 3.89 Miln/mm3 (4.50-5.90); White Blood Count 9.9 Thou/mm3 (3.8-10.6)
[2024-09-08 06:55] LABS: Alanine Aminotransferase < 7 U/L (10-49); Albumin, Serum 3.1 gm/dL (3.4-4.8); Alkaline Phosphatase 267 U/L (46-116); Anion Gap 5 (7-16); Aspartate Amino Transferase 30 U/L (0-34); BUN/Creatinine Ratio 6 Ratio (12-20); Bilirubin,Total 0.3 mg/dL (0.3-1.2); Blood Urea Nitrogen 39 mg/dL (9-23); Calcium 9.2 mg/dL (8.3-10.6); Calcium (Corrected) 9.9 mg/dL (8.5-10.1); Carbon Dioxide 23.8 mMol/L (20.0-31.0); Chloride 95 mMol/L (98-107); Creatinine (Component) 6.5 mg/dL (0.6-1.3); Estimated Creatinine Clearance 9.8 mL/min (>60); Glucose 322 mg/dL (74-106); Magnesium 1.8 mg/dL (1.6-2.6); Osmolality,Calculated 271 (275-295); Phosphorous 3.9 mg/dL (2.4-5.1); Potassium 3.6 mMol/L (3.4-5.1); Sodium 124 mMol/L (136-145); Total Protein 6.1 gm/dL (5.7-8.2); eGFR 8 See Note
--- NOTE | 2024-09-08 09:28 | PC.SS ---
Addendum entered by JOO Blanco 09/08/24 15:24: Rounding note: patient is pending authorization to d/c to [facility] in [place], [place]. Addendum entered by JOO Blanco 09/08/24 09:54: SS update: received a call from Codie with patient's insurance. Codie confirms that clinical packet was received and an authorization has been created and is currently pending since it was just received (could take up to 72hrs). Auth number is [id number]. Original Note: SS follow up: made contact with patient's insurance and spoke with Codie . Requested an update and was informed that they would call advertising copywriter back with status. Updated [facility] on status via [employer].
[2024-09-08] MEDS: PANTOPRAZOLE INJ 40 MG VIAL IVP (09:36)
[2024-09-08] MEDS: HEPARIN SOD INJ 5000 UNIT/ML VIAL SC ×2 (09:36→20:39)
[2024-09-08] MEDS: POLYETHYLENE GLYCOL 17 GM PACKET PO (09:36)
[2024-09-08] MEDS: SENNA/DOCUSATE SOD 1 TAB TABLET PO (09:36)
[2024-09-08] MEDS: TAMSULOSIN HCL 0.4 MG CAPSULE PO (09:36)
[2024-09-08] MEDS: ATORVASTATIN CALCIUM 10 MG TABLET PO (09:36)
[2024-09-08] MEDS: guaiFENesin SYRUP 200 MG/10 ML UDC PO (09:36)
[2024-09-08] MEDS: INSULIN LISPRO (AdmeLOG) 1 UNIT/0.01 ML UNIT 15 UNIT SC ×2 (09:37→12:55)
[2024-09-08] MEDS: INSULIN GLARGINE (Lantus) 5 UNIT/0.05 ML (PER 5 UNITS) 30 UNIT SC (09:38)
[2024-09-08] MEDS: ACETAMINOPHEN 325 MG TABLET 650 MG PO ×2 (10:20→21:33)
[2024-09-08] MEDS: MG HYD/AL HYD/SIME (Maalox Reg) SUSP 30 ML UDC PO (12:55)
--- NOTE | 2024-09-08 13:28 | ESPR_ITS ---
<Statement entered by Arya Spencer MD - 09/09/24 17:52> RR called in noon for hypotension, patient was administered 500 NS IVF bolus which brought up the BP. Patient to undergo PD tonight. I discussed with and supervised the equine intern physician involved in the care of this patient. Patient assessment and plan was discussed with entire medicine team, including my attending. I agree with the assessment and plan as documented by equine intern doctor. Patient care was discussed with my attending physician Dr. Tay Spencer, PGY-2 Documentation for date of: 09/08/24 Subjective Subjective Interval history: Patient is Romeo speaking and interaction facilitated by registered healthcare cue selector. Patient was seen and examined at bedside this AM. No acute exents overnight. Patient tolerating diet, adequate urine output and mentation is at baseline. Patient complains of feeling bloated. Had a bowel movement yesterday. Patient has decreased appetite today. Will decrease lispro to 5 units 3 times daily with meals and insulin glargine 20 units at bedtime. Patient had a rapid response today around 4:30 PM for hypotension and hypoglycemia of 56. Patient was given 1 amp of D50 and 500 cc normal saline bolus after which blood pressure improved to 90s/60s with MAP >65 and blood glucose 125. Exam Vital Signs Temp Pulse Resp BP Pulse Ox O2 Del Method 97.6 F 55 L 15 100/56 L 100 Room Air 09/08/24 12:00 09/08/24 12:30 09/08/24 12:00 09/08/24 12:00 09/08/24 12:00 09/08/24 12:00 Narrative Exam Constitutional Alert, oriented x 3 and comfortable. Elderly male, obese HEENT Legally blind in both eyes. Patent nares. Trachea midline Respiratory Chest normal on inspection and clear auscultation bilaterally Cardiovascular S1 and S2 audible, RRR. No murmurs carotid bruit. No gross JVD. Abdominal Soft, distended, Non-tender to palpation in all quadrants, cool to touch, bowel sounds auscultated - improving Genitourinary No bladder tenderness, no flank pain. Normal to palpation Musculoskeletal Extremities tone within normal limits. No LE edema. Neurological CN II - XII grossly intact. Extremity motor and sensation grossly intact. Skin Warm, dry and intact. No apparent lesions. Psychiatric Patient has good affect, is cooperative Objective Labs 09/11/24 04:15 09/11/24 04:15 Labs: Laboratory Results - last 24 hr 09/07/24 09/07/24 09/08/24 13:21 13:22 05:35 WBC 10.6 9.9 RBC 3.53 L 3.89 L Hgb 10.1 L 11.1 L Hct 29.7 L 33.0 L MCV 84 85 MCH 28.6 28.5 MCHC 34.0 33.6 RDW Std Deviation 43.8 44.7 H Plt Count 132 L 125 L Neut % (Auto) 73 69 Lymph % (Auto) 11 13 Sully % (Auto) 7 6 Eos % (Auto) 3 4 Baso % (Auto) 0 0 Neut # (Auto) 7.7 6.9 Lymph # (Auto) 1.2 1.2 Sully # (Auto) 0.8 0.6 Eos # (Auto) 0.3 0.4 Baso # (Auto) 0.0 0.0 Immature Gran # (Auto) 0.57 H 0.78 H Absolute Nucleated RBC 0.08 H 0.07 H Immature Gran % 5 H 8 H Nucleated RBC % 1 H 1 H Puncture Site Right Radial ABG pH 7.35 ABG pCO2 47 ABG pO2 79 L ABG HCO3 26 ABG O2 Saturation 97 ABG Base Excess 0 FiO2 97 Sodium 126 L 124 L Potassium 3.1 L 3.6 D Chloride 94 L 95 L Carbon Dioxide 25.7 23.8 Anion Gap 6 L 5 L BUN 43 H 39 H Creatinine 6.9 H* D 6.5 H* Estim Creat Clear Calc 9.3 L 9.8 L eGFR 8 L* 8 L* BUN/Creatinine Ratio 6 L 6 L Glucose 175 H D 322 H D Calculated Osmolality 268 L 271 L Lactic Acid 1.8 Calcium 8.7 9.2 Corrected Calcium 9.9 9.9 Phosphorus 3.5 3.9 Magnesium 1.8 1.8 Total Bilirubin 0.3 0.3 AST 34 30 ALT < 7 L < 7 L Alkaline Phosphatase 246 H 267 H D Ammonia < 10 L Total Protein 5.4 L 6.1 Albumin 2.5 L 3.1 L D Globulin 2.9 3.0 Albumin/Globulin Ratio 0.9 L 1.0 L ABG Interpretation ABG results: 09/07/24 13:21 ABG pH 7.35 ABG pCO2 47 ABG pO2 79 L ABG HCO3 26 ABG O2 Saturation 97 ABG Base Excess 0 Quality Measures Quality Measures VTE prophylaxis Advance care planning discussed with:: spouse and child Assessment & Plan Assessment Current Active Medications: Generic Name Dose Route Start Last Admin Trade Name Freq PRN Reason Stop Dose Admin Acetaminophen 650 mg 09/01/24 17:55 09/08/24 10:20 Acetaminophen 325 Mg Tablet PO 10/01/24 17:54 650 mg Q6H PRN Administration Fever >100.3 or pain Protocol Albuterol/Ipratropium 3 ml 09/05/24 22:00 09/08/24 06:07 Albuterol/Ipratropium (Duoneb) Rt Jessenia 3 Ml Nebu INH 10/05/24 21:59 3 ml Q8HR BRIANA Administration Atorvastatin Calcium 10 mg 09/02/24 09:00 09/08/24 09:36 Atorvastatin Calcium 10 Mg Tablet PO 10/02/24 08:59 10 mg QDAY BRIANA Administration Dextrose 25 ml 09/05/24 04:34 Dextrose 50%-Water Inj 50 Ml Syringe IV 10/05/24 04:33 Q15MIN PRN BG 50-70 responsive npo pt Dextrose 50 ml 09/05/24 04:34 Dextrose 50%-Water Inj 50 Ml Syringe IV 10/05/24 04:33 Q15MIN PRN BG <50 OR BG <70 & pt unresponsive Gabapentin 300 mg 09/02/24 14:00 09/08/24 05:24 Gabapentin 300 Mg Capsule PO 10/02/24 13:59 300 mg TID BRIANA Administration Glucagon 1 mg 09/05/24 04:34 Glucagon Inj 1 Mg Vial IM Q15MIN PRN BG <70, and no IV access Guaifenesin 200 mg 09/05/24 21:00 09/08/24 09:36 Guaifenesin Syrup 200 Mg/10 Ml Udc PO 10/05/24 20:59 200 mg BID BRIANA Administration Protocol Heparin Sodium (Porcine) 5,000 unit 09/01/24 21:00 09/08/24 09:36 Heparin Sod Inj 5000 Unit/Ml Vial SC 09/15/24 20:59 5,000 unit BID BRIANA Administration Heparin Sodium (Porcine) 3,000 unit 09/06/24 19:01 09/06/24 19:09 Heparin Sod Inj 1000 Unit/Ml Vial 10 Ml IV 09/20/24 19:00 3,000 unit X1 PRN Administration DIALYSIS Insulin Glargine 30 unit 09/08/24 21:00 Insulin Glargine (Lantus) 5 Unit/0.05 Ml (Per 5 Units) SC 10/08/24 20:59 HS BRIANA Insulin Glargine 30 unit 09/08/24 09:30 09/08/24 09:38 Insulin Glargine (Lantus) 5 Unit/0.05 Ml (Per 5 Units) SC 10/08/24 09:29 30 unit QDAY BRIANA Administration Insulin Human Lispro 15 unit 09/08/24 12:00 09/08/24 12:55 Insulin Lispro (Admelog) 1 Unit/0.01 Ml Unit SC 10/08/24 11:59 15 unit TIDWM BRIANA Administration Losartan Potassium 50 mg 09/07/24 09:00 09/07/24 08:56 Losartan Potassium 25 Mg Tablet PO 10/07/24 08:59 50 mg QDAY BRIANA Administration Melatonin 9 mg 09/05/24 21:00 09/07/24 21:17 Melatonin 3 Mg Tablet PO 10/05/24 20:59 9 mg HS BRIANA Administration Midodrine 10 mg 09/07/24 17:48 Midodrine 5 Mg Tablet PO 10/03/24 15:14 TID PRN MAP < 65 Ondansetron HCl 4 mg 09/01/24 17:59 09/04/24 15:52 Ondansetron Inj 2 Mg/Ml Inj 2 Ml IV 10/01/24 17:58 4 mg Q6H PRN Administration NAUSEA OR VOMITING Protocol Pantoprazole Sodium 40 mg 09/01/24 18:00 09/08/24 09:36 Pantoprazole Inj 40 Mg Vial IVP 10/01/24 17:59 40 mg QDAY BRIANA Administration Polyethylene Glycol 17 gm 09/05/24 09:45 09/08/24 09:36 Polyethylene Glycol 17 Gm Packet PO 10/05/24 09:44 17 gm QDAY BRIANA Administration Sennosides 1 tab 09/04/24 16:15 09/08/24 09:36 Senna/Docusate Sod 1 Tab Tablet PO 10/04/24 16:14 1 tab QDAY BRIANA Administration Protocol Tamsulosin HCl 0.4 mg 09/02/24 09:00 09/08/24 09:36 Tamsulosin Hcl 0.4 Mg Capsule PO 10/02/24 08:59 0.4 mg QDAY BRIANA Administration Plan Patient is a 78-year-old male with past medical history significant for ESRD on PD since 2019 follows up with calendering supervisor Dr. Collado in [place], primary hypertension, hyperlipidemia, insulin-dependent diabetes mellitus type 2 and diabetic neuropathy presenting with a chief complaint of fever, chills and diarrhea. Patient will be admitted for workup and management of likely PD catheter associated peritonitis. 1. Likely PD catheter associated peritonitis 2. ESRD on peritoneal dialysis since 2019 Patient presented with 2-day history of fever, chills associated with vomiting and abdominal pain. On exam patient's abdomen grossly distended and warm to palpation. Abdomen pelvis CT completed on 09/01/2024 findings include: Primary hepatocellular disease, atrophic [place] kidneys, moderate free fluid in pelvis. No abdominal or pelvic abscess. [09/01/24] Peritoneal fluid analysis revealed PMNs >13,000 [09/03/24] Peritoneal fluid analysis revealed PMNs >9159 [09/06/24] Peritoneal fluid analysis revealed PMNs >524.8 Peritoneal fluid culture 09/01/2024 grew Acinetobacter baumannii sensitive to cefepime. Plan: ? Low consistent carb diet. - Patient cleared from Nephrology for discharge and advised to follow up with Outpatient Dialysis Nurse and Costume Design Teacher Dr. Collado for PD directed antibiotics. - Pending Acute rehab placement ? Costume Design Teacher, Dr Sinclair consulted and closely following the case. Appreciate recommendations 3. Atrial fibrillation?paroxysmal Patient denies any symptoms. EKG significant for atrial fibrillation, rate 56. No acute ST changes Vascor is high Plan: ? No rate control as patient is bradycardic ? To consider anticoagulation after discussion with family. 4. Insomnia 5. Likely hospital induced delirium - resolving As per patient's he had periods of agitation and confusion. Patient was previously on zolpidem 2.5 Mg p.o. at bedtime Plan: ? Discontinued melatonin 9 Mg p.o. at bedtime 5. Elevated lactic acid - resolved On admission lactic acid elevated at 3.5 up trended to 4 ---> 1.7 6. Primary hypertension 7. Hyperlipidemia On admission BP 104/53. Currently BP 157/71 Triglycerides 155, cholesterol 112, LDL 50, HDL 31 Plan: ? Will restart home medication Losartan 50 mg po daily from tomorrow ? Antihypertensives on hold for now in light of low BP 8. Insulin-dependent diabetes mellitus type 2 [9.2%] 9. Diabetic neuropathy 10. Legally blind in both eyes Patient on insulin 70/30 at home, unsure of dose [09/02/2024] HbA1c 9.2% Fasting blood glucose 322 Plan: ? Low consistent carb diet ? Decreased insulin glargine to 20U at bedtime ? Decrease lispro to 5 units SC with meals 11. Pseudo hyponatremia NA 126, glucose 410 Corrected NA?131 12. Hypotension Rapid response was called today for blood pressure of 80s/40s Midodrine 10 Mg p.o. x 1 given Plan: ? Midodrine 10 Mg p.o. 3 times daily as needed for MAP <65 13. Goals of care discussion Discussed patient's current condition with family and need for possible intubation or chest compressions. Patient's son and wish to make him full code. Health maintenance: Disposition: Medically cleared for discharge. Pending rehab placement. CT Abdomen Diet: Low consistent carb Lines: pIVs GI Prophylaxis: Pantoprazole Thrombo Prophylaxis: Heparin 5000 U SC twice daily Code status: Full code Plan of care discussed with Attending Dr. Giraldo and PGY2 Dr. Tj Dickerson MD PGY 1 Attending Provider Attestation/Addendum I attest that I was physically present for the evaluation, physical examination, lab and imaging review of the patient with the residents. I discussed the case with the residents and agree with the findings and plans of care as documented above. At bedside this morning, the family stated that patient has decreased appetite, also is complaining of mild abdominal discomfort. In the evening around 430, rapid response was called for hypotension and hypoglycemia. Patient had a blood glucose level of 56, received an amp of D50 and 500 cc of normal saline bolus following which both his blood glucose and blood pressure improved. Continues to be on antibiotics through PD catheter for PD catheter associated peritonitis. Nephrology following, patient is receiving hemodialysis as scheduled. Patient noted to have atrial fibrillation on EKG, currently on sinus rhythm no ST changes. We will discuss with the family regarding anticoagulation and 84 cardiology consult. Had a long discussion with the family during rapid response about patient's CODE STATUS, patient's and son patient to be full code. Respecting their wishes, we will change CODE STATUS to. Dafne Giraldo MD
--- NOTE | 2024-09-08 15:37 | ESPR_ITS ---
RE: DIANNA RANDALL : 1945 DATE OF SERVICE: 09/08/2024 HISTORY OF PRESENT ILLNESS: Briefly, he is a 78-year-old Romeo-speaking gentleman with past medical history significant for type 2 diabetes, hypertension and ESRD on CCPD since 2019, who presented to emergency room on 09/01/2024 with abdominal pain, fever and was found with peritonitis. The patient's peritoneal fluid grew Acinetobacter baumannii, which is sensitive to cefepime. The patient's abdominal pain is much better and he is currently asleep. is by the bedside, who told me that he is going to [facility] for rehab. As per nurse, patient is scheduled to go to [facility] where they can accommodate his peritoneal dialysis needs. CURRENT MEDICATIONS: 1. Acetaminophen. 2. Albumin. 3. Atorvastatin. 4. Cefepime 1 g IV intraperitoneally. 5. Gabapentin. 6. Lispro sliding scale. 7. Midodrine. PHYSICAL EXAMINATION: General: Asleep. Vital Signs: Blood pressure of 100/56 and heart rate of 62. HEENT: Anicteric sclerae. Normocephalic. Neck: Supple. No JVD. Chest and Lungs: Symmetric expansion. Clear breath sounds. Cardiac: Without murmur. Abdomen: Distended and nontender. Extremities: No edema. LABORATORY DATA: Hemoglobin 11.1, WBC 9,800, and platelet count 125,000. Sodium 124, potassium 3.6, chloride 95, CO2 of 23.8, BUN 39, creatinine 6.5, and glucose 322. ASSESSMENT: 1. End-stage renal disease, on continuous cycling peritoneal dialysis. 2. Acinetobacter baumannii peritonitis, sensitive to intraperitoneal cefepime. 3. Hyponatremia secondary to increased low solute beverages like water. 4. Elevated lactic acid level, now improved, most likely secondary to sepsis. 5. Type 2 diabetes. 6. History of hypertension, now hypotension. 7. Anemia, not requiring ANNA. PLAN: We will continue IP cefepime tonight and dialysis treatment tonight. We are just waiting for him to be transferred to [facility] for rehab. DT: 14:54:55 TT: 15:35:00 Ref: [id number] - TID: [id number]
--- NOTE | 2024-09-08 16:09 | PC.NURSE ---
rec'd a call while at lunch that pt's bld sugar is 52 per family per his personal sensor, I had pt drink an apple juice and checked his sugar which was 61, I informed Dr. Sampson
--- NOTE | 2024-09-08 16:26 | EKG_ITS ---
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: JHONATHAN : 1945 Requested By: Randal Dickerson Order Number: [id number] Reading MD: Randal Dickerson Measurements Intervals [place] Rate: 66 P: MT: QRS: -8 QRSD: 105 T: 139 QT: 481 QTc: 505 Interpretive Statements ATRIAL FIBRILLATION WITH ABERRANT CONDUCTION OR VENTRICULAR PREMATURE COMPLEXES ST DEVIATION AND MODERATE T-WAVE ABNORMALITY, CONSIDER LATERAL ISCHEMIA [-0.1+ mV T WAVE IN I/aVL/V5/V6] Compared to ECG 09/07/2024 13:21:58 Ventricular premature complex(es) now present Aberrant conduction of supraventricular beat(s) now present Atrial flutter no longer present T-wave abnormality still present Possible ischemia still present /store/S0/[id number]/ecg/[id number].pdf
[2024-09-08 16:59] LABS: Lactate (Lactic Acid) 2.3 mMol/L (0.4-2.0)
[2024-09-08] MEDS: SODIUM CHLORIDE 0.9% 500 ML 500 ML 999 ML IV (17:08)
[2024-09-08] MEDS: DEXTROSE 50%-WATER INJ 50 ML SYRINGE 25 ML IV (17:08)
[2024-09-08 17:19] LABS: Albumin, Serum 2.7 gm/dL (3.4-4.8); Anion Gap 5 (7-16); BUN/Creatinine Ratio 6 Ratio (12-20); Blood Urea Nitrogen 41 mg/dL (9-23); Calcium 8.7 mg/dL (8.3-10.6); Calcium (Corrected) 9.7 mg/dL (8.5-10.1); Carbon Dioxide 26.3 mMol/L (20.0-31.0); Chloride 96 mMol/L (98-107); Creatinine (Component) 6.8 mg/dL (0.6-1.3); Estimated Creatinine Clearance 9.4 mL/min (>60); Glucose 141 mg/dL (74-106); Magnesium 1.8 mg/dL (1.6-2.6); Osmolality,Calculated 267 (275-295); Phosphorous 3.8 mg/dL (2.4-5.1); Potassium 3.2 mMol/L (3.4-5.1); Sodium 127 mMol/L (136-145); eGFR 8 See Note
--- NOTE | 2024-09-08 17:27 | XR_ITS ---
Examination: CT abdomen and pelvis without contrast. Coronal 3-D reconstructions. Sagittal 2-D reconstructions. Date and time of exam:September 08, 2024 1703 hours Comparison September 01, 2024 Indications: Abdominal distention beginning 3 days ago CTDI: vol (mGy): 19.5 DLP: (mGycm): 1290 Technique: Axial images of the abdomen have been obtained, 3 mm slice thickness Intravenous contrast material has not been administered. Low dose protocols were performed. One or more of the following dose reduction techniques were used; automated exposure control, adjustment of the mA and/or KV according to patient size, use of iterative reconstruction technique. Findings: Small bilateral pleural effusions Mild enlargement cardiac contour Cirrhosis, liver nodular in contour No definite gallstones Mild ascites No splenomegaly Fluid distended stomach No pancreatic mass Atrophic end-stage kidneys Significantly fluid distended small bowel loops Peritoneal dialysis catheter Wall of the colon is diffusely thickened Heavy vascular calcification Contracted urinary bladder Transverse prostate dimension 4.2 cm Severe osteopenia Impression: Cirrhosis Mild ascites Atrophic end-stage [place] kidneys Significantly fluid distended small bowel loops suspicious for small bowel obstruction, consider Gastrografin small bowel series follow-up
[2024-09-08] MEDS: CEFEPIME INJ 1 GM VIAL PERIT ×2 (18:16)
[2024-09-08] MEDS: Magnesium Sulfate 2 GM Ivpb 2 GM/50 ML BAG IV (18:35)
[2024-09-08] MEDS: POTASSIUM CHL 10 mEq IVPB 10 MEQ/100 ML BAG 100 MEQ IV ×4 (19:24→23:25)
[2024-09-08 19:56] LABS: Reflex Lactate? Y
[2024-09-08] MEDS: INSULIN GLARGINE (Lantus) 5 UNIT/0.05 ML (PER 5 UNITS) 20 UNIT SC (20:38)
[2024-09-08 20:46] LABS: Lactic Acid, 3 HR 2.2 mMol/L (0.4-2.0)
[2024-09-08] MEDS: MELATONIN 3 MG TABLET PO (21:47)
[2024-09-09] VITALS (127 sets, daily range): BP systolic 58–188; BP diastolic 32–91; PULSE 56–111; RESP 7–99; TEMP 36.1–37.1; O2SAT 84–100
[2024-09-09] MEDS: INSULIN LISPRO (AdmeLOG) 1 UNIT/0.01 ML UNIT 2 UNIT SC (02:24)
--- NOTE | 2024-09-09 03:39 | PC.NURSE ---
Contacted ramesh Pompa RN regarding the peritoneal dialysis machine alarming with the prompt Check bag and lines. She advised turning off the machine and following up with the dialysis nurse in the morning.
[2024-09-09 05:49] LABS: Basophils % (Auto) 0 % (0-2.5); Eosinophils # (Auto) 0.3 Thou/mm3 (0.0-0.5); Eosinophils % (Auto) 3 % (0-10); Hemoglobin 10.7 g/dL (13.5-16.0); Immature Granulocytes % (Auto) 5 % (0-0); Immature Granulocytes Auto 0.41 Thou/mm3 (0.00-0.00); Lymphocytes # (Auto) 1.2 Thou/mm3 (1.0-4.8); Lymphocytes % (Auto) 14 % (10-50); Mean Corpuscular HGB Conc 34.5 g/dl (31.0-37.0); Mean Corpuscular Hemoglobin 29.1 pg (25.0-35.0); Mean Corpuscular Volume 84 fL (80-100); Monocytes # (Auto) 0.5 Thou/mm3 (0.0-0.8); Monocytes % (Auto) 6 % (0-12); Neutrophils # (Auto) 6.1 Thou/mm3 (1.8-7.7); Neutrophils % (Auto) 72 % (37-80); Nucleated Red Blood Cell % 1 /100 WBC (0); Platelet Count 165 Thou/mm3 (140-440); RDW Standard Deviation 45.3 fL (35.1-43.9); Red Blood Count 3.68 Miln/mm3 (4.50-5.90); White Blood Count 8.4 Thou/mm3 (3.8-10.6)
[2024-09-09 06:40] LABS: Alanine Aminotransferase < 7 U/L (10-49); Albumin, Serum 2.9 gm/dL (3.4-4.8); Alkaline Phosphatase 354 U/L (46-116); Anion Gap 9 (7-16); Aspartate Amino Transferase 34 U/L (0-34); BUN/Creatinine Ratio 6 Ratio (12-20); Bilirubin,Total 0.3 mg/dL (0.3-1.2); Blood Urea Nitrogen 39 mg/dL (9-23); Calcium (Corrected) 9.9 mg/dL (8.5-10.1); Carbon Dioxide 24.7 mMol/L (20.0-31.0); Chloride 94 mMol/L (98-107); Creatinine (Component) 6.3 mg/dL (0.6-1.3); Estimated Creatinine Clearance 10.1 mL/min (>60); Globulin 2.9 gm/dL (2.3-3.5); Glucose 233 mg/dL (74-106); Magnesium 2.3 mg/dL (1.6-2.6); Osmolality,Calculated 273 (275-295); Potassium 3.9 mMol/L (3.4-5.1); Sodium 128 mMol/L (136-145); Total Protein 5.8 gm/dL (5.7-8.2); eGFR 8 See Note
[2024-09-09] MEDS: ALBUTEROL/IPRATROPIUM (Duoneb) RT SOL 3 ML NEBU INH ×2 (07:37→14:42)
[2024-09-09] MEDS: POLYETHYLENE GLYCOL 17 GM PACKET PO (09:10)
[2024-09-09] MEDS: SENNA/DOCUSATE SOD 1 TAB TABLET PO (09:10)
[2024-09-09] MEDS: HEPARIN SOD INJ 5000 UNIT/ML VIAL SC (09:10)
[2024-09-09] MEDS: ATORVASTATIN CALCIUM 10 MG TABLET PO (09:10)
[2024-09-09] MEDS: PANTOPRAZOLE INJ 40 MG VIAL IVP (09:11)
[2024-09-09] MEDS: INSULIN GLARGINE (Lantus) 5 UNIT/0.05 ML (PER 5 UNITS) 30 UNIT SC (09:11)
[2024-09-09] MEDS: INSULIN LISPRO (AdmeLOG) 1 UNIT/0.01 ML UNIT SC (09:12)
--- NOTE | 2024-09-09 09:28 | PC.SS ---
Addendum entered by JOO Blanco 09/09/24 16:36: SS update: rapid was called on the patient. visitor services representative present to provide support to patient's family. Medical staff present to provide family with update. Patient to be transitioned to the ICU. Family aware. Addendum entered by JOO Blanco 09/09/24 15:38: SS update: patient is pending authorization to [facility] in [facility] and patient is also pending glucose level to be resolved before d/c. Original Note: SS follow up: spoke with Jasmina at [facility] in [place] to provide an update on authorization pending. Jasmina confirms at time of d/c [facility] is able to arrange transportation on behalf of the patient. Provided Jasmina patient's insurance contact number to reach out for follow up on status.
--- NOTE | 2024-09-09 10:57 | ESPR_ITS ---
<Statement entered by Arya Spencer MD - 09/09/24 18:17> Later in the day, rapid response followed by code blue was initiated. Post gastrografin workup for SBO per general surgery reccs, patient started vomiting and became unresponsive. After 3 rounds of epinephrine ROSC was achieved. Patient was intubated and upgraded to ICU. I discussed with and supervised the general internal medicine doctor physician involved in the care of this patient. Patient assessment and plan was discussed with entire medicine team, including my attending. I agree with the assessment and plan as documented by general internal medicine doctor doctor. Patient care was discussed with my attending physician Dr. Tay Spencer, PGY-2 Documentation for date of: 09/09/24 Subjective Subjective Interval history: Patient is [place] speaking and interaction facilitated by registered healthcare orchestra leader. Patient was seen and examined at bedside this AM. No acute exents overnight. Patient tolerating minimal diet, adequate urine output and mentation is confused Patient is oriented to self only. Last bowel movement was yesterday CT abdomen pelvis completed on 09/08/2014 findings include: Cirrhosis, mild ascites atrophic end-stage [place] kidneys. Significant fluid distended small bowel loops suspicious for small bowel obstruction. General surgery, Dr Hopper was curb sided and recommended small bowel series. Exam Vital Signs Temp Pulse Resp BP Pulse Ox O2 Del Method 97.1 F 75 14 121/62 99 Room Air 09/09/24 08:00 09/09/24 08:00 09/09/24 08:00 09/09/24 08:00 09/09/24 08:00 09/09/24 08:00 Narrative Exam Constitutional Alert, oriented x 3 and comfortable. Elderly male, obese HEENT Legally blind in both eyes. Patent nares. Trachea midline Respiratory Chest normal on inspection and clear auscultation bilaterally Cardiovascular S1 and S2 audible, RRR. No murmurs carotid bruit. No gross JVD. Abdominal Soft, distended, Non-tender to palpation in all quadrants, cool to touch, bowel sounds auscultated Genitourinary No bladder tenderness, no flank pain. Normal to palpation Musculoskeletal Extremities tone within normal limits. No LE edema. Neurological CN II - XII grossly intact. Extremity motor and sensation grossly intact. Skin Warm, dry and intact. No apparent lesions. Psychiatric Patient has good affect, is cooperative Objective Labs 09/11/24 04:15 09/11/24 04:15 Labs: Laboratory Results - last 24 hr 09/08/24 09/08/24 09/09/24 16:40 20:36 04:15 WBC 8.4 RBC 3.68 L Hgb 10.7 L Hct 31.0 L MCV 84 MCH 29.1 MCHC 34.5 RDW Std Deviation 45.3 H Plt Count 165 D Neut % (Auto) 72 Lymph % (Auto) 14 Fannin % (Auto) 6 Eos % (Auto) 3 Baso % (Auto) 0 Neut # (Auto) 6.1 Lymph # (Auto) 1.2 [place]annin # (Auto) 0.5 Eos # (Auto) 0.3 Baso # (Auto) 0.0 Immature Gran # (Auto) 0.41 H Absolute Nucleated RBC 0.10 H Immature Gran % 5 H Nucleated RBC % 1 H Sodium 127 L 128 L Potassium 3.2 L 3.9 D Chloride 96 L 94 L Carbon Dioxide 26.3 24.7 Anion Gap 5 L 9 BUN 41 H 39 H Creatinine 6.8 H* 6.3 H* D Estim Creat Clear Calc 9.4 L 10.1 L eGFR 8 L* 8 L* BUN/Creatinine Ratio 6 L 6 L Glucose 141 H D 233 H D Calculated Osmolality 267 L 273 L Lactic Acid 2.3 H 2.2 H Calcium 8.7 9.0 Corrected Calcium 9.7 9.9 Phosphorus 3.8 3.0 Magnesium 1.8 2.3 Total Bilirubin 0.3 AST 34 ALT < 7 L Alkaline Phosphatase 354 H D Total Protein 5.8 Albumin 2.7 L 2.9 L Globulin 2.9 Albumin/Globulin Ratio 1.0 L ABG Interpretation ABG results: 09/07/24 13:21 ABG pH 7.35 ABG pCO2 47 ABG pO2 79 L ABG HCO3 26 ABG O2 Saturation 97 ABG Base Excess 0 Quality Measures Quality Measures VTE prophylaxis Advance care planning discussed with:: patient Assessment & Plan Assessment Current Active Medications: Generic Name Dose Route Start Last Admin Trade Name Freq PRN Reason Stop Dose Admin Acetaminophen 650 mg 09/01/24 17:55 09/08/24 21:33 Acetaminophen 325 Mg Tablet PO 10/01/24 17:54 650 mg Q6H PRN Administration Fever >100.3 or pain Protocol Albuterol/Ipratropium 3 ml 09/05/24 22:00 09/09/24 07:37 Albuterol/Ipratropium (Duoneb) Rt Jessenia 3 Ml Nebu INH 10/05/24 21:59 3 ml Q8HR BRIANA Administration Atorvastatin Calcium 10 mg 09/02/24 09:00 09/09/24 09:10 Atorvastatin Calcium 10 Mg Tablet PO 10/02/24 08:59 10 mg QDAY BRIANA Administration Dextrose 25 ml 09/05/24 04:34 Dextrose 50%-Water Inj 50 Ml Syringe IV 10/05/24 04:33 Q15MIN PRN BG 50-70 responsive npo pt Dextrose 50 ml 09/09/24 08:49 Dextrose 50%-Water Inj 50 Ml Syringe IV 10/09/24 08:48 Q15MIN PRN BG <50 OR BG <70 & pt unresponsive Glucagon 1 mg 09/09/24 08:49 Glucagon Inj 1 Mg Vial IM Q15MIN PRN BG <70, and no IV access Guaifenesin 200 mg 09/05/24 21:00 09/08/24 09:36 Guaifenesin Syrup 200 Mg/10 Ml Udc PO 10/05/24 20:59 200 mg BID BRIANA Administration Protocol Heparin Sodium (Porcine) 5,000 unit 09/01/24 21:00 09/09/24 09:10 Heparin Sod Inj 5000 Unit/Ml Vial SC 09/15/24 20:59 5,000 unit BID BRIANA Administration Heparin Sodium (Porcine) 3,000 unit 09/06/24 19:01 09/06/24 19:09 Heparin Sod Inj 1000 Unit/Ml Vial 10 Ml IV 09/20/24 19:00 3,000 unit X1 PRN Administration DIALYSIS Insulin Glargine 30 unit 09/08/24 09:30 09/09/24 09:11 Insulin Glargine (Lantus) 5 Unit/0.05 Ml (Per 5 Units) SC 10/08/24 09:29 30 unit QDAY BRIANA Administration Insulin Glargine 30 unit 09/09/24 21:00 Insulin Glargine (Lantus) 5 Unit/0.05 Ml (Per 5 Units) SC 10/09/24 20:59 HS BRIANA Insulin Human Lispro 5 unit 09/08/24 17:30 09/09/24 09:13 Insulin Lispro (Admelog) 1 Unit/0.01 Ml Unit SC 10/08/24 17:29 Not Given TIDWM BRIANA Insulin Human Lispro 0 unit 09/09/24 11:30 09/09/24 09:12 Insulin Lispro (Admelog) 1 Unit/0.01 Ml Unit SC 10/09/24 11:29 2 unit AC BRIANA Administration Protocol Losartan Potassium 50 mg 09/07/24 09:00 09/07/24 08:56 Losartan Potassium 25 Mg Tablet PO 10/07/24 08:59 50 mg QDAY BRIANA Administration Midodrine 10 mg 09/07/24 17:48 Midodrine 5 Mg Tablet PO 10/03/24 15:14 TID PRN MAP < 65 Ondansetron HCl 4 mg 09/01/24 17:59 09/04/24 15:52 Ondansetron Inj 2 Mg/Ml Inj 2 Ml IV 10/01/24 17:58 4 mg Q6H PRN Administration NAUSEA OR VOMITING Protocol Pantoprazole Sodium 40 mg 09/01/24 18:00 09/09/24 09:11 Pantoprazole Inj 40 Mg Vial IVP 10/01/24 17:59 40 mg QDAY BRIANA Administration Polyethylene Glycol 17 gm 09/05/24 09:45 09/09/24 09:10 Polyethylene Glycol 17 Gm Packet PO 10/05/24 09:44 17 gm QDAY BRIANA Administration Sennosides 1 tab 09/04/24 16:15 09/09/24 09:10 Senna/Docusate Sod 1 Tab Tablet PO 10/04/24 16:14 1 tab QDAY BRIANA Administration Protocol Tamsulosin HCl 0.4 mg 09/02/24 09:00 09/08/24 09:36 Tamsulosin Hcl 0.4 Mg Capsule PO 10/02/24 08:59 0.4 mg QDAY BRIANA Administration Plan Patient is a 78-year-old male with past medical history significant for ESRD on PD since 2019 follows up with restorative rehab aide Dr. Collado in [place], primary hypertension, hyperlipidemia, insulin-dependent diabetes mellitus type 2 and diabetic neuropathy presenting with a chief complaint of fever, chills and diarrhea. Patient will be admitted for workup and management of likely PD catheter associated peritonitis. 1. Suspicion for small bowel obstruction Patient's last bowel movement was yesterday. On exam patient has abdominal distention, bowel sounds present. CT abdomen pelvis completed on 09/08/2014 findings include: Cirrhosis, mild ascites atrophic end-stage [place] kidneys. Significant fluid distended small bowel loops suspicious for small bowel obstruction. Plan: - NPO ? Small bowel series ordered 2. Likely PD catheter associated peritonitis 3. ESRD on peritoneal dialysis since 2019 Patient presented with 2-day history of fever, chills associated with vomiting and abdominal pain. On exam patient's abdomen grossly distended and warm to palpation. Abdomen pelvis CT completed on 09/01/2024 findings include: Primary hepatocellular disease, atrophic [place] kidneys, moderate free fluid in pelvis. No abdominal or pelvic abscess. [09/01/24] Peritoneal fluid analysis revealed PMNs >13,000 [09/03/24] Peritoneal fluid analysis revealed PMNs >9159 [09/06/24] Peritoneal fluid analysis revealed PMNs >524.8 Peritoneal fluid culture 09/01/2024 grew Acinetobacter baumannii sensitive to cefepime. Plan: ? Low consistent carb diet. - Patient cleared from Nephrology for discharge and advised to follow up with Outpatient Dialysis Nurse and Life Educator Dr. Collado for PD directed antibiotics. - Pending Acute rehab placement ? Life Educator, Dr Sinclair consulted and closely following the case. Appreciate recommendations 4. Atrial fibrillation?paroxysmal Patient denies any symptoms. EKG significant for atrial fibrillation, rate 56. No acute ST changes Vascor is high Plan: ? No rate control as patient is bradycardic ? To consider anticoagulation after discussion with family. 5 . Insomnia 6. Likely hospital induced delirium - resolving As per patient's he had periods of agitation and confusion. Patient was previously on zolpidem 2.5 Mg p.o. at bedtime Plan: ? Discontinued melatonin 9 Mg p.o. at bedtime 7. Elevated lactic acid - resolved On admission lactic acid elevated at 3.5 up trended to 4 ---> 1.7 8. Primary hypertension 9. Hyperlipidemia On admission BP 104/53. Currently BP 157/71 Triglycerides 155, cholesterol 112, LDL 50, HDL 31 Plan: ? Will restart home medication Losartan 50 mg po daily from tomorrow ? Antihypertensives on hold for now in light of low BP 10. Insulin-dependent diabetes mellitus type 2 [9.2%] 11. Diabetic neuropathy 12. Legally blind in both eyes Patient on insulin 70/30 at home, unsure of dose [09/02/2024] HbA1c 9.2% Fasting blood glucose 322 Plan: ? Low consistent carb diet ? Decreased insulin glargine to 20U at bedtime ? Decrease lispro to 5 units SC with meals 13. Pseudo hyponatremia NA 126, glucose 410 Corrected NA?131 14. Hypotension Rapid response was called today for blood pressure of 80s/40s Midodrine 10 Mg p.o. x 1 given Plan: ? Midodrine 10 Mg p.o. 3 times daily as needed for MAP <65 15. Goals of care discussion Discussed patient's current condition with family and need for possible intubation or chest compressions. Patient's son and wish to make him full code. Health maintenance: Disposition: Pending small bowel series Diet: NPO Lines: pIVs GI Prophylaxis: Pantoprazole Thrombo Prophylaxis: Heparin 5000 U SC twice daily Code status: Full code Plan of care discussed with Attending Dr. Giraldo and PGY2 Dr. Tj Dickerson MD PGY 1 Attending Provider Attestation/Addendum I attest that I was physically present for the evaluation, physical examination, lab and imaging review of the patient with the residents. I discussed the case with the residents and agree with the findings and plans of care as documented above. At bedside this morning, patient is sleepy but wakes up on calling. Continues to be confused. CT abdomen/pelvis done yesterday evening came back which showed cirrhosis, mild ascites and significant fluid distended small bowel loops suspicious for bowel obstruction. Reached out to general surgery, recommended keeping patient n.p.o. and starting on small bowel series. While receiving Gastrografin for small bowel series, patient had episode of nausea and vomiting. His respiratory started dropping and rapid response was called. While resting to the patient's room, ANTONIO DIXON was called. Chest compressions were initiated and junior qa analyst was attached, which showed PEA. 3 rounds of epinephrine, 2 ampoules of bicarbonate, 1 ampoule of calcium chloride was given. Following which patient went into V-fib. He received 1 shock of 150J following which he obtained ROSC. Patient was intubated by ED physician. He was then transferred to ICU for mechanical ventilation and further care. Dafne Giraldo MD
[2024-09-09] MEDS: ONDANSETRON INJ 2 MG/ML INJ 2 ML 4 MG IV (12:56)
--- NOTE | 2024-09-09 14:27 | XR_ITS ---
Examination: Small bowel series with KUBs Exam date and time: September 09, 2024 1540 hours INDICATIONS: Abdominal pain and distention this week, dilated small bowel loops on CT abdomen pelvis study yesterday TECHNIQUE AND FINDINGS: Patient received 120 cc Gastrografin with immediate AP portable supine abdomen film obtained Contrast in the stomach Multiple additional delayed films will be obtained IMPRESSION: Immediate abdomen films with contrast in the stomach
[2024-09-09] MEDS: DEXTROSE 50%-WATER INJ 50 ML SYRINGE 25 ML IV (14:30)
--- NOTE | 2024-09-09 16:05 | XR_ITS ---
Examination: AP chest single view Technique one AP portable semiupright chest single view Exam date and time: September 09, 2024 1621 hours Comparison September 11, 2019 INDICATIONS: Hypoxic respiratory failure today post intubation FINDINGS: Endotracheal tube tip 4.9 cm above joe Orogastric tube in the stomach satisfactory position Mild heart failure Mild enlargement cardiac contour with prominent vascular congestion and early perihilar edema Prominent osteopenia IMPRESSION: Mild CHF
--- NOTE | 2024-09-09 16:08 | EKG_ITS ---
[facility] Test Date: 2024-09-09 Pat Name: DIANNA RANDALL Department: Room: S256A Gender: Male Director Business Development: JHONATHAN : 1945 Requested By: Roosevelt Cm Order Number: [id number] Reading MD: Roosevelt Cm Measurements Intervals Imperial Rate: 95 P: [place]: QRS: 181 QRSD: 102 T: 61 QT: 358 QTc: 451 Interpretive Statements ATRIAL FIBRILLATION POSSIBLE RIGHT VENTRICULAR HYPERTROPHY LATERAL MYOCARDIAL INFARCTION , PROBABLY RECENT ACUTE MN Compared to ECG 09/08/2024 16:28:49 Myocardial infarct finding now present Ventricular premature complex(es) no longer present Aberrant conduction of supraventricular beat(s) no longer present T-wave abnormality no longer present Possible ischemia no longer present /store/S0/[id number].pdf
[2024-09-09] MEDS: Norepinephrine/NS 16mg/250ml 16 MG/250 ML BAG 3.891 MG IV (16:25)
[2024-09-09] MEDS: AMIODARONE 360 MG IVPB 360 MG/200 ML BAG 33.333 MG IV (16:32)
[2024-09-09 16:33] LABS: Lactate (Lactic Acid) 5.7 mMol/L (0.4-2.0)
[2024-09-09 16:34] LABS: Basophils # (Auto) 0.1 Thou/mm3 (0.0-0.2); Basophils % (Auto) 0 % (0-2.5); Eosinophils # (Auto) 0.2 Thou/mm3 (0.0-0.5); Eosinophils % (Auto) 1 % (0-10); Hematocrit 33.8 % (41.0-53.0); Hemoglobin 11.3 g/dL (13.5-16.0); Immature Granulocytes % (Auto) 6 % (0-0); Immature Granulocytes Auto 1.07 Thou/mm3 (0.00-0.00); Lymphocytes # (Auto) 3.4 Thou/mm3 (1.0-4.8); Lymphocytes % (Auto) 20 % (10-50); Mean Corpuscular HGB Conc 33.4 g/dl (31.0-37.0); Mean Corpuscular Hemoglobin 28.8 pg (25.0-35.0); Mean Corpuscular Volume 86 fL (80-100); Monocytes # (Auto) 0.7 Thou/mm3 (0.0-0.8); Monocytes % (Auto) 4 % (0-12); Neutrophils # (Auto) 11.5 Thou/mm3 (1.8-7.7); Neutrophils % (Auto) 68 % (37-80); Nucleated Red Blood Cell # 0.32 Thou/mm3 (0.00-0.00); Nucleated Red Blood Cell % 2 /100 WBC (0); Platelet Count 199 Thou/mm3 (140-440); RDW Standard Deviation 46.9 fL (35.1-43.9); Red Blood Count 3.93 Miln/mm3 (4.50-5.90); White Blood Count 16.9 Thou/mm3 (3.8-10.6)
[2024-09-09] MEDS: fentaNYL 2,500 MCG/250 ML BAG 2,500 MCG/250 ML BAG IV (16:35)
[2024-09-09] MEDS: PROPOFOL 1,000 MG IVPB 1,000 MG/100 ML VIAL 2.49 MG IV (16:35)
[2024-09-09 16:42] LABS: Base Excess -3 (-3-3); HCO3 25 mEq/L (20-26); O2 Saturation 101 % (91-98); PCO2 62 mmHg (32.0-48.0); PO2 301 mmHg (83-108); Puncture Site Right Radial; pH, Arterial 7.22 (7.35-7.45)
[2024-09-09 16:43] LABS: Allen Test Not Performed; Inspired Oxygen, FIO2 100 %
[2024-09-09 16:56] LABS: Alanine Aminotransferase 10 U/L (10-49); Albumin, Serum 2.8 gm/dL (3.4-4.8); Albumin/Globulin Ratio 0.9 (1.2-2.2); Anion Gap 10 (7-16); Aspartate Amino Transferase 50 U/L (0-34); BUN/Creatinine Ratio 6 Ratio (12-20); Bilirubin,Total 0.3 mg/dL (0.3-1.2); Blood Urea Nitrogen 43 mg/dL (9-23); Calcium 10.4 mg/dL (8.3-10.6); Calcium (Corrected) 11.4 mg/dL (8.5-10.1); Carbon Dioxide 24.7 mMol/L (20.0-31.0); Chloride 96 mMol/L (98-107); Creatinine (Component) 6.8 mg/dL (0.6-1.3); Estimated Creatinine Clearance 9.4 mL/min (>60); Globulin 3.1 gm/dL (2.3-3.5); Glucose 142 mg/dL (74-106); Magnesium 2.7 mg/dL (1.6-2.6); Osmolality,Calculated 275 (275-295); Phosphorous 6.2 mg/dL (2.4-5.1); Potassium 3.9 mMol/L (3.4-5.1); Sodium 131 mMol/L (136-145); Total Protein 5.9 gm/dL (5.7-8.2); eGFR 8 See Note
[2024-09-09 16:57] LABS: Alkaline Phosphatase < 20 U/L (46-116)
--- NOTE | 2024-09-09 17:23 | XR_ITS ---
Examination: AP chest single view Technique one AP portable supine chest single view Exam date and time: September 09, 2024 1737 hours Comparison September 09, 2024 1621 hours INDICATIONS: Heart failure, post central line placement FINDINGS: Mild to moderate CHF with enlarged cardiac contour prominent vascular congestion and perihilar edema Endotracheal tube tip 5.8 cm above joe The orogastric tube is in stomach Right internal jugular central line tip SVC satisfactory position IMPRESSION: Interval right internal jugular central line, tip in satisfactory position SVC, no pneumothorax
--- NOTE | 2024-09-09 17:34 | EVENTNT_ITS ---
<Statement entered by Arya Spencer MD - 09/09/24 18:26> I discussed with and supervised the phd intern physician involved in the care of this patient. Patient assessment and plan was discussed with entire medicine team, including my attending. I agree with the assessment and plan as documented by phd intern doctor. Patient care was discussed with my attending physician Dr. Tay Spencer, PGY-2 Documentation for date of: 09/09/24 Event Note Event Note: Approximately 1540 rapid response was called for patient. While en route at 1541 ANTONIO BLUE was called. Upon arrival was informed by the nurse that patient had just returned from small bowel series x-ray and complained of nausea. Subsequently he had a small volume vomitus approximately 30 cc and his SpO2 dropped and he became unresponsive without a pulse. Chest compressions were initiated and a cardiac surgeon was attached which showed PEA. Patient had 3 rounds of epinephrine, 2 ampoules of bicarb, 1 ampoule of calcium chloride after which patient went into V-fib. Patient received 1 shock of 150 J after which ROSC was obtained. During the code Patient was intubated by ER attending Dr. VELAZQUEZ. Subsequently patient was transferred to ICU for mechanical ventilation and higher level of care. Plan of care discussed with Attending Dr. Giraldo and PGY2 Dr. Tj Dickerson MD PGY 1
--- NOTE | 2024-09-09 18:07 | XR_ITS ---
Examination: CT brain head without contrast. 2-D sagittal coronal reconstructions Date and time of exam:September 10, 2024 0848 hours INDICATIONS: Altered mental status today CTDI: vol (mGy):53.1 DLP: (mGycm):1045 Technique: Multiple CT axial sections of the brain have been obtained, 5 mm slice thickness. Contrast has not been administered. 2-D sagittal, coronal reconstructions have been obtained Low dose protocols were performed. One or more of the following dose reduction techniques were used; automated exposure control, adjustment of the mA and/or KV according to patient size, use of iterative reconstruction technique. Findings: No significant ventricular enlargement. 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
--- NOTE | 2024-09-09 18:15 | XR_ITS ---
Examination: Abdomen AP single view Technique: AP portable supine abdomen, single view Exam date and time: September 09, 2024 1625 hours INDICATIONS: Abdominal pain and distention this week, 1 hour delayed film post small bowel series FINDINGS: Mild contrast in the stomach Air distended small bowel loops noted IMPRESSION: Air distended small bowel loops noted
--- NOTE | 2024-09-09 18:26 | PD.RESPROC ---
Procedures Procedure Date / Time 09/09/24 1826 Central Line Placement Right IJ: Indication(s): shock Informed consent obtained: obtained from surrogate decision maker Time out done, and the following verified: correct patient, side and site, procedure and patient position Patient placed on monitor/pulse ox: Yes Hand Hygiene: scrub and alcohol-based hand rub Max Sterile Barrier Techniques used: cap, mask, sterile gown, sterile gloves and sterile full body drape Central line prep: Chlorhexidine scrub Local anesthesia used: lidocaine 1% Amount of anesthesia used (mL): 5 Ultrasound used for placement: Yes Sterile Technique if Ultrasound used, including sterile gel: yes Central line lumen inserted: triple Post procedure: sutured in place, good blood return, all ports aspirated, flushed, capped and sterile dressing applied Post procedure x-ray: tip of catheter in good position and no pneumothorax seen EBL(ml): 5 Procedure comment: Filemon Ross MD PGY-3 successfully performed US guided RIJ venous catheter placement under local anesthesia without complications under attending Dr. Bullard's direct supervision
--- NOTE | 2024-09-09 18:29 | ESCONSULT_ITS ---
<Statement entered by Adalberto Lemus MD - 09/10/24 11:12> I saw and evaluated the patient. I reviewed the resident?s note and agree with findings and plan as documented in the resident?s note. Called by the resident team regarding hospitalist patient being transferred to the intensive care unit. Patient managed by the hospitalist service overnight Agreed with plan of care for IV antibiotics, low tidal volume ARDS mechanical ventilation management with adjustments to maintain pH greater than 7.2. Panculture HPI Data of Consult Requesting Physician: Jaya Rogel MD Admitting Provider: Chandler Rodriguez DO Attending Provider: Jaya Rogel MD Primary Care Provider: Physician No Primary/Family Consult Narrative History of present illness: Colby Beard is a 78-year-old male with a past medical hisstory of ESRD on PD since [address] ([address] Collado in [place]), hypertension, hyperlipidemia, insulin-dependent type 2 diabetes mellitus, and diabetic neuropathy who presented with two days of fever, chills, and nonbloody diarrhea on 09/01. Associated generalized abdominal pain that was sudden onset and cramping in nature. No hematemesis, hematochezia or melena. In ED, patient afebrile and WBC wnl, but pleural fluid analysis from PD catheter showed > 14,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 Admitted for management of PD-catheter associated peritonitis and started on cefazolin and cefepime administered via PD catheter. [employer], Dr. Sinclair, consulted and is closely following the case. Perotonitis resolved, however, concerns for SBO after noted to have significant distention on exam so CT A/P showed significant fluid-distended small bowel loops. Thus, Gastrografin small bowel series was started. After given Gastrografin, patient went to get first of series of imaging and noted to be nausous. Upon returning, patient had epsidoe of emesis and SpO2 dropped and so rapid response was called at approximately 1540. En route, code blue was called as patient became unresponsive and was without a pulse. Chest compressions initiated and manager laundry showed PEA. Had 3 rounds of epinephrine, 2 ampules of HCO3, 1 ampule of CaCl and VF was seen on monitor. Received 1 shock of 150 J and ROSC was obtained. Intubated by Dr. Hernandez and subsequently transferred to ICU for mechanical ventilation with pressor support. cc:: cc: Jaya Rogel MD Exam Vital Signs Temp Pulse Resp BP Pulse Ox O2 Del Method FiO2 97.3 F 97 24 H 148/63 H 99 Room Air 70 09/09/24 12:00 09/09/24 18:05 09/09/24 18:05 09/09/24 18:05 09/09/24 18:05 09/09/24 12:00 09/09/24 16:30 Narrative Exam General: sedated and mechanically ventilated HEENT: NC/AT, mucous membranes moist, bilateral sclera anicteric Cardiovascular: tachycardic, S1/S2 present, no murmurs appreciated Pulmonary: clear to auscultation bilaterally Abdominal: distended, soft Musculoskeletal: normal ROM, no peripheral edema Skin: warm and dry, intact, no rashes Neuro: sedated Results Labs 09/09/24 16:22 09/09/24 16:22 Labs: Short CBC 09/09/24 09/09/24 Range/Units 04:15 16:22 WBC 8.4 16.9 H D (3.8-10.6) Thou/mm3 Hgb 10.7 L 11.3 L (13.5-16.0) g/dL Hct 31.0 L 33.8 L (41.0-53.0) % Plt Count 165 D 199 D (140-440) Thou/mm3 BMP 09/09/24 09/09/24 04:15 16:22 Sodium 128 L 131 L Potassium 3.9 D 3.9 Chloride 94 L 96 L Carbon Dioxide 24.7 24.7 BUN 39 H 43 H Creatinine 6.3 H* D 6.8 H* D Glucose 233 H D 142 H D Calcium 9.0 10.4 Cardiac Enzymes 09/09/24 Range/Units 16:22 Troponin I 0.050 H* (0.0-0.045) ng/mL Liver Function 09/09/24 09/09/24 Range/Units 04:15 16:22 Total Bilirubin 0.3 0.3 (0.3-1.2) mg/dL AST 34 50 H (0-34) U/L ALT < 7 L 10 (10-49) U/L Alkaline Phosphatase 354 H D < 20 L D (46-116) U/L Albumin 2.9 L 2.8 L (3.4-4.8) gm/dL ABG Interpretation ABG results: 09/07/24 09/09/24 13:21 16:34 ABG pH 7.35 7.22 L D ABG pCO2 47 62 H D ABG pO2 79 L 301 H D ABG HCO3 26 25 ABG O2 Saturation 97 101 H ABG Base Excess 0 -3 Quality Measures Quality Measures VTE prophylaxis Advance care planning discussed with:: child Medications Home Medications and Allergies Home Medications ?Medication ?Instructions ?Recorded ?Confirmed ?Type atorvastatin 10 mg tablet 10 mg PO QDAY 09/11/1909/01 History gabapentin 300 mg capsule 300 mg PO TID 09/11/1909/01 History insulin aspart U-100 100 unit/mL 1 sliding scale dose subcut 09/11/19 09/01/24 History subcutaneous solution (Novolog USEASDIRECTD U-100 Insulin aspart) omeprazole 20 mg capsule,delayed 40 mg PO QDAY 0 09/01/24 History release calcium acetate(phosphat bind) 667 1,334 mg PO TIDWMEA L 09/01/24 09/01/24 History mg capsule carvedilol 6.25 mg tablet 6.25 mg PO Q12H 09/01/2412/19 History losartan 50 mg tablet (Cozaar) 50 mg PO QDAY 09/01/24 09/01/24 History multi-vitamin no minerals 60 - 150 tab PO DAILY 09/01/24 History tamsulosin 0.4 mg capsule (Flomax) 0.4 mg PO QDAY 12/1909/01/24 History tramadol 50 mg tablet 50 mg PO Q12H 09/01/2409/01 History Allergies Allergy/AdvReac Type Severity Reaction Status Date / Time No Known Allergies Allergy Verified 09/01/24 14:42 Visit Medications Acetaminophen (Acetaminophen 325 Mg Tablet) 650 mg PO Q6H PRN; Protocol PRN Reason: Fever >100.3 or pain Stop: 10/01/24 17:54 Last Admin: 09/08/24 21:33 Dose: 650 mg Albuterol/Ipratropium (Albuterol/Ipratropium (Duoneb) Rt Jessenia 3 Ml Nebu) 3 ml INH Q8HR BRIANA Stop: 10/05/24 21:59 Last Admin: 09/09/24 14:42 Dose: 3 ml Atorvastatin Calcium (Atorvastatin Calcium 10 Mg Tablet) 10 mg PO QDAY BRIANA Stop: 10/02/24 08:59 Last Admin: 09/09/24 09:10 Dose: 10 mg Dextrose (Dextrose 50%-Water Inj 50 Ml Syringe) 25 ml IV Q15MIN PRN PRN Reason: BG 50-70 responsive npo pt Stop: 10/05/24 04:33 Dextrose (Dextrose 50%-Water Inj 50 Ml Syringe) 50 ml IV Q15MIN PRN PRN Reason: BG <50 OR BG <70 & pt unresponsive Stop: 10/09/24 08:48 Glucagon (Glucagon Inj 1 Mg Vial) 1 mg IM Q15MIN PRN PRN Reason: BG <70, and no IV access Guaifenesin (Guaifenesin Syrup 200 Mg/10 Ml Udc) 200 mg PO BID BRIANA; Protocol Stop: 10/05/24 20:59 Last Admin: 09/08/24 09:36 Dose: 200 mg Heparin Sodium (Porcine) (Heparin Sod Inj 1000 Unit/Ml Vial 10 Ml) 3,000 unit IV X1 PRN PRN Reason: DIALYSIS Stop: 09/20/24 19:00 Last Admin: 09/06/24 19:09 Dose: 3,000 unit Heparin Sodium (Porcine) (Heparin Sod Inj 5000 Unit/Ml Vial) 5,000 unit 60 unit/kg (5000 unit) IV X1 ONE; Protocol Stop: 09/09/24 18:25 Norepinephrine Bitartrate (Levophed In Ns 16mg/250ml) 16 mg in 250 mls @ 3.891 mls/hr IV .Q24H PRN; Protocol PRN Reason: PER PROTOCOL Stop: 10/09/24 16:07 Last Admin: 09/09/24 16:25 Dose: 0.05 mcg/kg/min, 3.891 mls/hr Amiodarone HCl/Dextrose (Nexterone Ivpb) 360 mg in 200 mls @ 33.333 mls/hr IV .Q6H ONE Stop: 09/09/24 22:08 Last Admin: 09/09/24 16:32 Dose: 33.333 mls/hr Amiodarone HCl/Dextrose (Nexterone Ivpb) 360 mg in 200 mls @ 16.667 mls/hr IV .Q12H [facility] Stop: 09/10/24 22:08 Piperacillin/Tazobactam/Dextrose (Zosyn) 50 mls @ 12.5 mls/hr IV Q12HR [facility] Stop: 09/16/24 16:37 Propofol (Diprivan Ivpb) 1,000 mg in 100 mls @ 2.49 mls/hr IV .Q24H PRN; Protocol PRN Reason: PER PROTOCOL Stop: 10/09/24 16:09 Fentanyl Citrate (Sublimaze Inj 2,500 Mcg/250 Ml Bag) 2,500 mcg in 250 mls @ 2.5 mls/hr IV .Q24H PRN; Protocol PRN Reason: PER PROTOCOL Stop: 09/14/24 16:10 Heparin Sodium/Dextrose (Heparin In D5w Ivpb) 25,000 unit in 250 mls @ 9.96 mls/hr IV .Q24H [facility]; Protocol Stop: 09/23/24 18:29 Insulin Glargine (Insulin Glargine (Lantus) 5 Unit/0.05 Ml (Per 5 Units)) 30 unit SC QDAY [facility] Stop: 10/08/24 09:29 Last Admin: 09/09/24 09:11 Dose: 30 unit Insulin Glargine (Insulin Glargine (Lantus) 5 Unit/0.05 Ml (Per 5 Units)) 20 unit SC HS [facility] Stop: 10/09/24 20:59 Insulin Human Lispro (Insulin Lispro (Admelog) 1 Unit/0.01 Ml Unit) 5 unit SC TIDWM [facility] Stop: 10/08/24 17:29 Last Admin: 09/09/24 12:45 Dose: Not Given Insulin Human Lispro (Insulin Lispro (Admelog) 1 Unit/0.01 Ml Unit) 0 unit SC AC [facility]; Protocol Stop: 10/09/24 11:29 Last Admin: 09/09/24 12:44 Dose: Not Given Midodrine (Midodrine 5 Mg Tablet) 10 mg PO TID PRN PRN Reason: MAP < 65 Stop: 10/03/24 15:14 Ondansetron HCl (Ondansetron Inj 2 Mg/Ml Inj 2 Ml) 4 mg IV Q6H PRN; Protocol PRN Reason: NAUSEA OR VOMITING Stop: 10/01/24 17:58 Last Admin: 09/09/24 12:56 Dose: 4 mg Pantoprazole Sodium (Pantoprazole Inj 40 Mg Vial) 40 mg IVP QDAY [facility] Stop: 10/01/24 17:59 Last Admin: 09/09/24 09:11 Dose: 40 mg Polyethylene Glycol (Polyethylene Glycol 17 Gm Packet) 17 gm PO QDAY [facility] Stop: 10/05/24 09:44 Last Admin: 09/09/24 09:10 Dose: 17 gm Sennosides (Senna/Docusate Sod 1 Tab Tablet) 1 tab PO QDAY [facility]; Protocol Stop: 10/04/24 16:14 Last Admin: 09/09/24 09:10 Dose: 1 tab Tamsulosin HCl (Tamsulosin Hcl 0.4 Mg Capsule) 0.4 mg PO QDAY [facility] Stop: 10/02/24 08:59 Last Admin: 09/08/24 09:36 Dose: 0.4 mg Discontinued Medications Hydrocodone Bitart/Acetaminophen (Hydrocodone/Apap 5/325 Tablet) 1 tab PO Q4HR PRN PRN Reason: PAIN SCALE 4-10(Mod-Sev Stop: 09/06/24 17:58 Last Admin: 09/02/24 05:42 Dose: 1 tab Hydrocodone Bitart/Acetaminophen (Hydrocodone/Apap 5/325 Tablet) 1 tab PO Q4HR PRN; Protocol PRN Reason: BREAKTHROUGH PAIN Stop: 09/08/24 09:27 Al Hydrox/Mg Hydrox/Simethicone (Mg Hyd/Al Hyd/Beckie (Maalox Reg) Susp 30 Ml Udc) 30 ml PO X1 ONE Stop: 09/02/24 01:12 Last Admin: 09/02/24 01:30 Dose: 30 ml Al Hydrox/Mg Hydrox/Simethicone (Mg Hyd/Al Hyd/Beckie (Maalox Reg) Susp 30 Ml Udc) 30 ml PO X1 ONE Stop: 09/07/24 09:01 Last Admin: 09/07/24 11:36 Dose: 30 ml Al Hydrox/Mg Hydrox/Simethicone (Mg Hyd/Al Hyd/Beckie (Maalox Reg) Susp 30 Ml Udc) 30 ml PO X1 ONE Stop: 09/08/24 09:55 Last Admin: 09/08/24 12:55 Dose: 30 ml Albuterol/Ipratropium (Albuterol/Ipratropium (Duoneb) Rt Jessenia 3 Ml Nebu) 3 ml INH Q4HR PRN PRN Reason: SHORTNESS OF BREATH OR WHEEZE Stop: 10/01/24 17:54 Cefepime HCl (Cefepime Inj 1 Gm Vial) 1 gm IV X1 ONE Stop: 09/02/24 17:31 Cefepime HCl (Cefepime Inj 1 Gm Vial) 1 gm PERIT X1 ONE Stop: 09/02/24 17:31 Last Admin: 09/02/24 18:54 Dose: 1 gm Cefepime HCl (Cefepime Inj 1 Gm Vial) 1 gm PERIT X1 ONE Stop: 09/03/24 15:16 Last Admin: 09/03/24 20:56 Dose: 1 gm Cefepime HCl (Cefepime Inj 1 Gm Vial) 1 gm PERIT X1 ONE Stop: 09/06/24 18:46 Last Admin: 09/06/24 19:00 Dose: 1 gm Cefepime HCl (Cefepime Inj 1 Gm Vial) 1 gm PERIT X1 ONE Stop: 09/07/24 18:46 Last Admin: 09/07/24 19:04 Dose: 1 gm Cefepime HCl (Cefepime Inj 1 Gm Vial) 1 gm PERIT X1 ONE Stop: 09/08/24 18:01 Last Admin: 09/08/24 18:16 Dose: 1 gm Cefazolin Sodium 1 gm/ Sterile (Water 2.5 ml) 0 gm PERIT X1 ONE Stop: 09/01/24 19:27 Last Admin: 09/01/24 20:23 Dose: 1 dose Cefazolin Sodium 1 gm/ Sterile (Water 2.5 ml) 0 gm PERIT X1 ONE Stop: 09/02/24 19:31 Last Admin: 09/02/24 18:52 Dose: 1 dose Cefazolin Sodium 1 gm/ Sterile (Water 2.5 ml) 0 gm PERIT X1 ONE Stop: 09/03/24 19:31 Last Admin: 09/03/24 20:54 Dose: 1 dose Cefazolin Sodium 1 gm/ Sterile (Water 2.5 ml) 0 gm PERIT X1 ONE Stop: 09/04/24 19:30 Cefazolin Sodium 1 gm/ Sterile (Water 2.5 ml) 0 gm PERIT X1 ONE Stop: 09/04/24 19:30 Last Admin: 09/04/24 20:12 Dose: 1 dose Cefazolin Sodium 1 gm/ Sterile (Water 2.5 ml) 0 gm PERIT X1 ONE Stop: 09/05/24 19:31 Dextrose (Dextrose 50%-Water Inj 50 Ml Syringe) 50 ml IV Q15MIN PRN PRN Reason: BG <50 OR BG <70 & pt unresponsive Stop: 10/01/24 18:32 Dextrose (Dextrose 50%-Water Inj 50 Ml Syringe) 25 ml IV X1 ONE Stop: 09/08/24 16:29 Last Admin: 09/08/24 17:08 Dose: 25 ml Dextrose (Dextrose 50%-Water Inj 50 Ml Syringe) 25 ml IV X1 ONE Stop: 09/09/24 14:16 Last Admin: 09/09/24 14:30 Dose: 25 ml Gabapentin (Gabapentin 300 Mg Capsule) 300 mg PO TID BRIANA Stop: 10/02/24 13:59 Last Admin: 09/08/24 14:22 Dose: 300 mg Glucagon (Glucagon Inj 1 Mg Vial) 1 mg IM Q15MIN PRN PRN Reason: BG <70, and no IV access Heparin Sodium (Porcine) (Heparin Sod Inj 5000 Unit/Ml Vial) 5,000 unit SC BID BRIANA Stop: 09/15/24 20:59 Last Admin: 09/09/24 09:10 Dose: 5,000 unit Heparin Sodium (Porcine) (Heparin Sod Inj 1000 Unit/Ml Vial 10 Ml) 3,000 unit STFIELD X1 ONE Stop: 09/01/24 20:15 Last Admin: 09/01/24 20:25 Dose: 3,000 unit Heparin Sodium (Porcine) (Heparin Sod Inj 1000 Unit/Ml Vial 10 Ml) 3,000 unit STFIELD X1 PRN PRN Reason: to peritoneal dialysis jessenia. Stop: 09/16/24 19:29 Last Admin: 09/02/24 18:55 Dose: 3,000 unit Heparin Sodium (Porcine) (Heparin Sod Inj 1000 Unit/Ml Vial 10 Ml) 3,000 unit IV X1 PRN PRN Reason: DIALYSIS Stop: 09/03/24 23:59 Last Admin: 09/03/24 20:57 Dose: 3,000 unit Heparin Sodium (Porcine) (Heparin Sod Inj 1000 Unit/Ml Vial 10 Ml) 3,000 unit INDWELLCAT X1 ONE Stop: 09/04/24 19:36 Last Admin: 09/04/24 20:15 Dose: 3,000 unit Heparin Sodium (Porcine) (Heparin Sod Inj 1000 Unit/Ml Vial 10 Ml) 3,000 unit INDWELLCAT X1 ONE Stop: 09/05/24 19:31 Last Admin: 09/05/24 19:22 Dose: 3,000 unit Hydroxyzine HCl (Hydroxyzine Hcl 25 Mg Tablet) 12.5 mg PO X1 ONE Stop: 09/05/24 10:59 Last Admin: 09/05/24 11:26 Dose: Not Given Ceftriaxone Sodium/Dextrose (Rocephin/D5w 1gm Iv Premix) 50 mls @ 100 mls/hr IV X1 ONE Stop: 09/01/24 17:29 Last Infusion: 09/01/24 18:55 Dose: Infused Ceftriaxone Sodium/Dextrose (Rocephin/D5w 1gm Iv Premix) 50 mls @ 100 mls/hr IV X1 ONE Stop: 09/01/24 17:31 Last Infusion: 09/01/24 19:27 Dose: Infused Cefazolin Sodium/Dextrose (Ancef Ivpb) 1 gm in 50 mls @ 100 mls/hr IV X1 ONE Stop: 09/01/24 19:50 Last Admin: 09/01/24 19:48 Dose: Not Given Cefepime HCl 2 gm/ Sodium (Chloride) 50 mls @ 100 mls/hr IV X1 ONE Stop: 09/01/24 19:57 Cefepime HCl 1 gm/ Sodium (Chloride) 50 mls @ 100 mls/hr PERIT X1 ONE Stop: 09/01/24 19:59 Last Admin: 09/01/24 20:29 Dose: 100 mls/hr Cefazolin Sodium/Dextrose (Ancef Ivpb) 1 gm in 50 mls @ 100 mls/hr IV X1 ONE Stop: 09/01/24 20:01 Magnesium Sulfate (Magnesium Sulfate Ivpb) 4 gm in 50 mls @ 12.5 mls/hr IV X1 ONE Stop: 09/02/24 12:25 Last Admin: 09/02/24 09:21 Dose: 12.5 mls/hr Sodium Chloride (Ns) 500 mls @ 999 mls/hr IV .Q31M BRIANA Stop: 10/02/24 10:48 Last Admin: 09/02/24 11:04 Dose: 999 mls/hr Sodium Chloride (Ns) 500 mls @ 999 mls/hr IV .Q31M ONE Stop: 09/02/24 11:43 Last Admin: 09/02/24 11:20 Dose: Not Given Lactated Ringer's (Lactated Ringers) 1,000 mls @ 125 mls/hr IV .Q8H [facility] Stop: 10/02/24 16:51 Last Admin: 09/03/24 12:12 Dose: Not Given Cefepime HCl 1 gm/ Sodium (Chloride) 50 mls @ 100 mls/hr PERIT X1 ONE Stop: 09/02/24 19:59 Sodium Chloride (Ns) 500 mls @ 999 mls/hr IV .Q31M ONE Stop: 09/03/24 12:35 Last Admin: 09/03/24 12:12 Dose: 999 mls/hr Cefepime HCl 1 gm/ Sodium (Chloride) 50 mls @ 100 mls/hr PERIT X1 ONE Stop: 09/04/24 20:02 Last Admin: 09/04/24 20:08 Dose: 100 mls/hr Cefepime HCl 1 gm/ Sodium (Chloride/ Sterile Water) 60 mls @ 100 mls/hr PERIT X1 ONE Stop: 09/05/24 20:05 Last Admin: 09/05/24 19:22 Dose: 100 mls/hr Albumin Human (Albuminar-25 Ivpb) 12.5 gm in 50 mls @ 100 mls/hr IV X1 ONE Stop: 09/07/24 13:35 Albumin Human (Albuminar-25 Ivpb) 12.5 gm in 50 mls @ 50 mls/hr IV X1 ONE Stop: 09/07/24 14:07 Albumin Human (Albuminar-25 Ivpb) 25 gm in 100 mls @ 100 mls/hr IV X1 ONE Stop: 09/07/24 14:17 Last Admin: 09/07/24 13:21 Dose: 100 mls/hr Sodium Chloride (Ns) 500 mls @ 999 mls/hr IV .Q31M ONE Stop: 09/08/24 17:01 Last Admin: 09/08/24 17:08 Dose: 999 mls/hr Potassium Chloride (Kcl Ivpb) 10 meq in 100 mls @ 100 mls/hr IV Q1H BRIANA Stop: 09/08/24 21:22 Last Admin: 09/08/24 23:25 Dose: 100 mls/hr Magnesium Sulfate (Magnesium Sulfate Ivpb) 2 gm in 50 mls @ 25 mls/hr IV X1 ONE Stop: 09/08/24 19:23 Last Admin: 09/08/24 18:35 Dose: 25 mls/hr Propofol (Diprivan Ivpb) 1,000 mg in 100 mls @ 2.49 mls/hr IV .Q24H PRN; Protocol PRN Reason: PER PROTOCOL Stop: 10/09/24 16:09 Last Admin: 09/09/24 16:35 Dose: 5 mcg/kg/min, 2.49 mls/hr Fentanyl Citrate (Sublimaze Inj 2,500 Mcg/250 Ml Bag) 2,500 mcg in 250 mls @ 2.5 mls/hr IV .Q24H PRN; Protocol PRN Reason: PER PROTOCOL Stop: 09/14/24 16:10 Last Admin: 09/09/24 16:35 Dose: 25 mcg/hr, 2.5 mls/hr Piperacillin Sod/Tazobactam (Sod 4.5 gm/ Sodium Chloride) 100 mls @ 200 mls/hr IV X1 ONE Stop: 09/09/24 17:14 Insulin Glargine (Insulin Glargine (Lantus) 5 Unit/0.05 Ml (Per 5 Units)) 10 unit SC [facility] Stop: 10/02/24 20:59 Last Admin: 09/02/24 20:55 Dose: 10 unit Insulin Glargine (Insulin Glargine (Lantus) 5 Unit/0.05 Ml (Per 5 Units)) 15 unit SC [facility] Stop: 10/03/24 20:59 Last Admin: 09/04/24 21:28 Dose: 15 unit Insulin Glargine (Insulin Glargine (Lantus) 5 Unit/0.05 Ml (Per 5 Units)) 30 unit SC [facility] Stop: 10/05/24 20:59 Last Admin: 09/06/24 22:38 Dose: 30 unit Insulin Glargine (Insulin Glargine (Lantus) 5 Unit/0.05 Ml (Per 5 Units)) 48 unit SC [facility] Stop: 10/07/24 20:59 Insulin Glargine (Insulin Glargine (Lantus) 5 Unit/0.05 Ml (Per 5 Units)) 60 unit SC [facility] Stop: 10/07/24 20:59 Last Admin: 09/07/24 21:40 Dose: 60 unit Insulin Glargine (Insulin Glargine (Lantus) 5 Unit/0.05 Ml (Per 5 Units)) 30 unit SC [facility] Stop: 10/08/24 20:59 Insulin Glargine (Insulin Glargine (Lantus) 5 Unit/0.05 Ml (Per 5 Units)) 20 unit SC [facility] Stop: 10/08/24 20:59 Last Admin: 09/08/24 20:38 Dose: 20 unit Insulin Glargine (Insulin Glargine (Lantus) 5 Unit/0.05 Ml (Per 5 Units)) 30 unit SC [facility] Stop: 10/09/24 20:59 Insulin Human Lispro (Insulin Lispro (Admelog) 1 Unit/0.01 Ml Unit) 0 unit SC [facility]; Protocol Stop: 10/02/24 07:29 Last Admin: 09/05/24 17:42 Dose: Not Given Insulin Human Lispro (Insulin Lispro (Admelog) 1 Unit/0.01 Ml Unit) 5 unit SC X1 ONE Stop: 09/02/24 08:32 Last Admin: 09/02/24 09:22 Dose: 5 unit Insulin Human Lispro (Insulin Lispro (Admelog) 1 Unit/0.01 Ml Unit) 3 unit SC TIDWM [facility] Stop: 10/02/24 11:59 Last Admin: 09/03/24 07:57 Dose: 3 unit Insulin Human Lispro (Insulin Lispro (Admelog) 1 Unit/0.01 Ml Unit) 5 unit SC TIDWM [facility] Stop: 10/03/24 11:59 Last Admin: 09/05/24 07:40 Dose: 5 unit Insulin Human Lispro (Insulin Lispro (Admelog) 1 Unit/0.01 Ml Unit) 5 unit SC X1 ONE Stop: 09/05/24 04:36 Last Admin: 09/05/24 04:44 Dose: 5 unit Insulin Human Lispro (Insulin Lispro (Admelog) 1 Unit/0.01 Ml Unit) 6 unit SC X1 ONE Stop: 09/05/24 06:16 Last Admin: 09/05/24 06:40 Dose: 6 unit Insulin Human Lispro (Insulin Lispro (Admelog) 1 Unit/0.01 Ml Unit) 10 unit SC TIDWM [facility] Stop: 10/05/24 11:59 Last Admin: 09/07/24 07:25 Dose: 10 unit Insulin Human Lispro (Insulin Lispro (Admelog) 1 Unit/0.01 Ml Unit) 0 unit SC [facility]; Protocol Stop: 10/02/24 07:29 Last Admin: 09/07/24 07:26 Dose: 6 unit Insulin Human Lispro (Insulin Lispro (Admelog) 1 Unit/0.01 Ml Unit) 5 unit SC X1 ONE Stop: 09/06/24 05:32 Last Admin: 09/06/24 05:47 Dose: 5 unit Insulin Human Lispro (Insulin Lispro (Admelog) 1 Unit/0.01 Ml Unit) 16 unit SC TIDWM [facility] Stop: 10/07/24 11:59 Insulin Human Lispro (Insulin Lispro (Admelog) 1 Unit/0.01 Ml Unit) 20 unit SC TIDWM [facility] Stop: 10/07/24 11:59 Last Admin: 09/07/24 17:05 Dose: Not Given Insulin Human Lispro (Insulin Lispro (Admelog) 1 Unit/0.01 Ml Unit) 0 unit SC [facility]; Protocol Stop: 10/02/24 07:29 Last Admin: 09/07/24 17:04 Dose: Not Given Insulin Human Lispro (Insulin Lispro (Admelog) 1 Unit/0.01 Ml Unit) 5 unit SC X1 ONE Stop: 09/08/24 02:45 Last Admin: 09/08/24 02:56 Dose: 5 unit Insulin Human Lispro (Insulin Lispro (Admelog) 1 Unit/0.01 Ml Unit) 15 unit SC TIDWM [facility] Stop: 10/08/24 11:59 Last Admin: 09/08/24 12:55 Dose: 15 unit Insulin Human Lispro (Insulin Lispro (Admelog) 1 Unit/0.01 Ml Unit) 2 unit SC X1 [facility] Stop: 09/09/24 04:00 Last Admin: 09/09/24 02:24 Dose: 2 unit Lactulose (Lactulose Syrup 20 Gm/30 Ml Udc) 60 gm PO X1 ONE; Protocol Stop: 09/06/24 16:12 Last Admin: 09/06/24 16:31 Dose: 60 gm Lorazepam (Lorazepam 2 Mg/Ml Vial) 1 mg IVP X1 ONE Stop: 09/05/24 11:11 Last Admin: 09/05/24 11:30 Dose: 1 mg Losartan Potassium (Losartan Potassium 25 Mg Tablet) 50 mg PO QDAY [facility] Stop: 10/07/24 08:59 Last Admin: 09/07/24 08:56 Dose: 50 mg Magnesium Hydroxide (Milk Of Magnesia Susp 30 Ml Udc) 30 ml PO X1 ONE; Protocol Stop: 09/05/24 09:33 Last Admin: 09/05/24 10:00 Dose: 30 ml Melatonin (Melatonin 3 Mg Tablet) 9 mg PO HS [facility] Stop: 10/05/24 20:59 Last Admin: 09/07/24 21:17 Dose: 9 mg Melatonin (Melatonin 3 Mg Tablet) 3 mg PO X1 ONE Stop: 09/08/24 21:35 Last Admin: 09/08/24 21:47 Dose: 3 mg Midodrine (Midodrine 5 Mg Tablet) 10 mg PO TID [facility] Stop: 10/03/24 15:14 Last Admin: 09/05/24 05:30 Dose: Not Given Midodrine (Midodrine 5 Mg Tablet) 10 mg PO X1 ONE Stop: 09/07/24 12:42 Last Admin: 09/07/24 12:54 Dose: 10 mg Oxycodone/Acetaminophen (Oxycodone/Apap 5/325 Tab (Asd)) 1 tab PO X1 ONE Stop: 09/02/24 21:16 Last Admin: 09/02/24 21:55 Dose: Not Given Oxycodone/Acetaminophen (Oxycodone/Apap 5/325 Tablet) 1 tab PO X1 ONE Stop: 09/02/24 21:37 Last Admin: 09/02/24 22:01 Dose: 1 tab Oxycodone/Acetaminophen (Oxycodone/Apap 5/325 Tablet) 1 tab PO X1 ONE Stop: 09/03/24 04:46 Last Admin: 09/03/24 04:47 Dose: 1 tab Polyethylene Glycol/Electrolytes (Na Bell/Nahco3/Ramon/Peg (Golytely) 4,000 Ml Btl) 4,000 ml PO X1 ONE Stop: 09/06/24 15:43 Potassium Chloride (Potassium Chloride 20 Meq Tabcr) 40 meq PO X1 ONE Stop: 09/07/24 14:15 Last Admin: 09/07/24 16:55 Dose: 40 meq Sodium Chloride (Sodium Chloride Rt 10% 15 Ml Nebu) 5 ml INH X1 ONE Stop: 09/09/24 16:20 Sodium Chloride (Sodium Chloride Rt 10% 15 Ml Nebu) 5 ml INH X1 ONE Stop: 09/09/24 16:31 Tramadol HCl (Tramadol Hcl 50 Mg Tablet) 50 mg PO Q12HR PRN PRN Reason: PAIN SCALE 4-10(Mod-Sev Stop: 09/07/24 08:59 Last Admin: 09/07/24 05:42 Dose: 50 mg Zolpidem Tartrate (Zolpidem 5 Mg Tablet) 2.5 mg PO HS BRIANA Stop: 10/03/24 20:59 Last Admin: 09/04/24 21:25 Dose: 2.5 mg Assessment & Plan Plan Colby Beard is a 78-year-old male with a past medical hisstory of ESRD on PD since [address] ([address] Collado in [place]), hypertension, hyperlipidemia, insulin-dependent type 2 diabetes mellitus, and diabetic neuropathy who was admitted for management of PD-catheter associated peritonitis. On 09/09, nick ramírez called for PEA and patient intubated and upgraded to ICU. Neurological #Sedated on mechanical ventilation Goal of RASS -5 - Fentanyl drip at 125 mcg/hr - Propofol drip at 15 mcg/hr Cardiovascular #Pulseless electrical activity, s/p resuscitation #Ventricular fibrillation, s/p cardioversion RR at 1540 and while en route, nick ramírez called for pulseless electrical activity. Upon arrival, informed by nurse that patient returned from small bowel series and endorsed nausea and subsequently had episode of emesis and SpO2 dropped, became unresponsive, and without a pulse. Chest compressions initiated and manager laundry showed PEA. Had 3 rounds of epinephrine, 2 ampules of HCO3, 1 ampule of CaCl and VF was seen on monitor. Received 1 shock of 150 J and ROSC was obtained. Intubated by Dr. Hernandez and subsequently transferred to ICU for mechanical ventilation with pressor support. #Shock, cardiogenic vs distributive (septic) #Hypotension, requiring pressor support Status-post PEA, however patient received 3 rounds of epinephrine. Additionally, WBC noted to increase but may be due to aspiration pneumonitis. - Levophed 0.5 mcg/kg/hr #Atrial fibrillation, paroxysmal - Will defer AC at this time as patient underwent multiple procedures after code blue - Amiodarone drip (09/09-) Pulmonary #Mechanically ventilated Intubated during code blue for airway protection in likely setting of aspiration. - VT 400, RR 24, PEEP 5, FiO2 70% #? Aspiration pneumonitis Witnessed episode of emesis during code blue and patient likely aspirated stomach contents. Stat CXR s/p intubation showed right-sided infiltrate and CXR 1 hour later showed interval improvement. Repeat CBC showed interval increase in WBC from 8.4 to 16.9. - Zosyn and vancomycin - Follow-up sputum culture Gastrointestinal #? Small bowel obstruction Abdominal distention on exam. CT A/P on 09/08 showed significant fluid- distended small bowel loops, suspicious for SBO. Underwent first of small bowel series when patient became nauseous and had episode of emesis and subsequent code blue. Will continue with small bowel series to see if contrast passes through. However, patient had episode of emesis as previously noted and on low, intermittent suctioning. XR abdomen showed distended stomach with contrast in fundus and lower esophagus. Subsequent XR abdomen showed mild contrast in stomach with distended small bowel loops. - NG tube with low intermittent suctioning - Follow small bowel series - If unable to accurately assess small bowel series, continue LIS and consider attempting second series when patient is more stable #Spontaneous bacterial peritonitis, resolved Peritoneal fluid analysis improved, with PMNs downtrendin,000 -> 9000 -> 500 Peritoneal fluid culture from 09/01 grew Acinetobacter baumannii that was sensitive to cefepime. Cleared by nephrology for discharge and advised to follow-up outpatient with Dr. Collado. - Dr. Sinclair consulted and following Renal #Metabolic acidosis secondary to elevated lactate vs hypercapnia Initial ABG after inbutation: pH 7.22, pCO2 62, and pO2 301. Repeat ABG: pH 7.28, pO2 54, pO2 104 Likely secondary to lactic acidosis secondary to PEA and decreased tissue perfusion in addition to hypercapnia likely due to aspiration event. However, acidosis (pH) improving on current ventilator settings and lactate also improved from 5.7 to 2.9. - Continue ventilator settings as above #ESRD on peritoneal dialysis Peritoneal fluid analysis improved, with PMNs downtrendin,000 -> 9000 -> 500 Peritoneal fluid culture from 09/01 grew Acinetobacter baumannii that was sensitive to cefepime. Cleared by nephrology for discharge and advised to follow-up outpatient with Dr. Collado. - Dr. Sinclair consulted and following Heme #Leukocytosis, secondary to aspiration pneumonitis - See pulmonary above Endocrine #Type 2 diabetes mellitus, insulin-dependent A1c 9.2%. Noted to have difficult to control blood sugars and recent hypoglycemic episodes due to decreased PO intake. - Hold lantus at this time - SSI q6hr Infectious disease #Spontaneous bacterial peritonitis - See GI above #? Aspiration pneumonitis - See pulmonary above Antibiotics: Zosyn and vancomycin: 09/09- Blood culture 09/09: pending Sputum culture 09/09: pending Hospital management: Disposition: mechanically ventilated, sedated, and on pressors Sedation: propofol and fentanyl Pressor: levophed Fluids: none Diet: NPO, NG tube placed Lines: central line (right IJ), arterial line (right femoral), PIV DVT prophylaxis: pantoprazole IV GI prophylaxis: no AC at this time due to recent procedures CODE STATUS: full code ----- Plan discussed with attending physician Dr. Allan Osborn MD PGY-1 Internal Medicine
--- NOTE | 2024-09-09 18:49 | PD.RESPROC ---
Procedures Procedure Date / Time 09/09/24 1716 Arterial Line Indication(s): frequent arterial line sampling Informed consent obtained: obtained from surrogate decision maker Time out done, and the following verified: correct patient, side and site and procedure Size (Gauge): 14 Technique used: guide wire technique Post-Procedure: line sutured into place and dry sterile dressing placed Patient tolerated procedure: well and no complications Complications: none Site: right and femoral Procedure comment: Procedure done under direct supervision of my senior, Dr. Filemon Escobar and attending Dr. Bullard.
[2024-09-09 19:15] LABS: Base Excess -2 (-3-3); Base Excess, Venous -2 (-3-3); HCO3 25 mEq/L (20-26); Inspired Oxygen, FIO2 70 %; O2 Saturation 98 % (91-98); O2 Saturation, Venous 79 % (96-97); PCO2 54 mmHg (32.0-48.0); PCO2, Venous 61 mmHg (36-56); PO2 104 mmHg (83-108); PO2, Venous 47 mmHg (15-58); pH, Arterial 7.28 (7.35-7.45); pH, Venous 7.25 (7.33-7.66)
[2024-09-09 19:17] LABS: Allen Test Not Performed; Puncture Site Arterial Line
[2024-09-09 19:29] LABS: Reflex Lactate? Y
[2024-09-09 19:37] LABS: Lactic Acid, 3 HR 2.9 mMol/L (0.4-2.0)
--- NOTE | 2024-09-09 19:40 | PC.RT ---
VENT change increased RR from 24 to 28, based on ABG per MD Santo. Pt dayanna well at this time. Follow up ABG at midnight ordered
[2024-09-09 19:42] LABS: Partial Thromboplastin Time 30.1 Seconds (22.0-36.0); Prothrombin Time 10.9 Seconds (9.0-12.2)
--- NOTE | 2024-09-09 20:18 | PC.NURSE ---
PATIENT WAS ADMITTED TO ICU POST CODE FROM [facility] [place] AT 1608, PT IS UNSTABLE MD'S AT BEDSIDE STARTING ART-LINE, CENTRAL LINE TO STABILIZE THE PATIENT.
[2024-09-09] MEDS: PIPER/TAZO INJ 4.5 GM in SODIUM CHLORIDE 0.9% (P) 100 ML IV (20:22)
[2024-09-09] MEDS: Norepinephrine/NS 16mg/250ml 16 MG/250 ML BAG 93.375 MG IV (21:59)
[2024-09-09] MEDS: DEXTROSE 50%-WATER INJ 50 ML SYRINGE IV (22:16)
[2024-09-09] MEDS: ALBUTEROL RT 2.5 MG/0.5 ML NEBU 10 MG INH (22:50)
[2024-09-09 22:53] LABS: Lactate (Lactic Acid) 4.3 mMol/L (0.4-2.0)
[2024-09-09] MEDS: VASOPRESSIN IN NS IVPB 20 UNIT/100 ML BAG 9 UNIT IV (23:00)
[2024-09-09] MEDS: MIDAZOLAM INJ 1 MG/ML VIAL 2 ML 2 MG IV (23:43)
[2024-09-09 23:57] LABS: Troponin I 0.825 ng/mL (0.0-0.045)
[2024-09-10] VITALS (217 sets, daily range): BP systolic 29–236; BP diastolic 12–170; PULSE 66–130; RESP 14–37; TEMP 36–36.6; O2SAT 83–100; BMI 28.3
[2024-09-10] MEDS: Norepinephrine/NS 16mg/250ml 16 MG/250 ML BAG 93.375 MG IV (00:03)
[2024-09-10 00:17] LABS: Base Excess -6 (-3-3); HCO3 22 mEq/L (20-26); Inspired Oxygen, FIO2 21 %; O2 Saturation 99 % (91-98); PCO2 56 mmHg (32.0-48.0); PO2 130 mmHg (83-108); pH, Arterial 7.21 (7.35-7.45)
[2024-09-10 00:23] LABS: Puncture Site Arterial Line
[2024-09-10 00:24] LABS: Allen Test Not Performed
[2024-09-10] MEDS: SODIUM CHLORIDE 0.9% 500 ML 500 ML 999 ML IV (00:45)
[2024-09-10 01:43] LABS: Reflex Lactate? Y
[2024-09-10] MEDS: ALBUTEROL/IPRATROPIUM (Duoneb) RT SOL 3 ML NEBU INH ×6 (02:40→22:40)
[2024-09-10] MEDS: Norepinephrine/NS 16mg/250ml 16 MG/250 ML BAG 77.813 MG IV ×3 (03:00→09:10)
[2024-09-10] MEDS: PROPOFOL 1,000 MG IVPB 1,000 MG/100 ML VIAL 7.47 MG IV ×2 (03:42→19:40)
[2024-09-10 05:10] LABS: Base Excess -9 (-3-3); HCO3 21 mEq/L (20-26); Inspired Oxygen, FIO2 100 %; O2 Saturation 95 % (91-98); PCO2 60 mmHg (32.0-48.0); PO2 86 mmHg (83-108)
[2024-09-10 05:14] LABS: Lactate (Lactic Acid) 5.5 mMol/L (0.4-2.0)
[2024-09-10 05:16] LABS: pH, Arterial 7.14 (7.35-7.45)
[2024-09-10 05:17] LABS: Allen Test Performed/OK; Puncture Site Arterial Line
[2024-09-10 05:23] LABS: Basophils # (Auto) 0.2 Thou/mm3 (0.0-0.2); Basophils % (Auto) 1 % (0-2.5); Eosinophils # (Auto) 0.2 Thou/mm3 (0.0-0.5); Eosinophils % (Auto) 1 % (0-10); Hematocrit 37.7 % (41.0-53.0); Hemoglobin 12.3 g/dL (13.5-16.0); Immature Granulocytes % (Auto) 2 % (0-0); Immature Granulocytes Auto 0.53 Thou/mm3 (0.00-0.00); Lymphocytes # (Auto) 1.2 Thou/mm3 (1.0-4.8); Lymphocytes % (Auto) 4 % (10-50); Mean Corpuscular HGB Conc 32.6 g/dl (31.0-37.0); Mean Corpuscular Hemoglobin 28.5 pg (25.0-35.0); Mean Corpuscular Volume 87 fL (80-100); Monocytes # (Auto) 0.6 Thou/mm3 (0.0-0.8); Monocytes % (Auto) 2 % (0-12); Neutrophils % (Auto) 92 % (37-80); Nucleated Red Blood Cell # 1.54 Thou/mm3 (0.00-0.00); Nucleated Red Blood Cell % 5 /100 WBC (0); Platelet Count 200 Thou/mm3 (140-440); RDW Standard Deviation 48.6 fL (35.1-43.9); Red Blood Count 4.32 Miln/mm3 (4.50-5.90); White Blood Count 33.7 Thou/mm3 (3.8-10.6)
--- NOTE | 2024-09-10 05:32 | XR_ITS ---
Examination: AP chest single view Technique one AP portable semiupright chest single view Exam date and time: September 10, 2024 0807 hours Comparison September 09, 2024 INDICATIONS: Wheezing today. FINDINGS: Mild CHF Enlarged cardiac contour with prominent vascular congestion and perihilar edema Pneumonia at the lung bases Endotracheal tube tip 6.6 cm above joe Right internal jugular central line tip SVC Orogastric tube in the stomach IMPRESSION: Mild CHF Significant bibasilar pneumonia
[2024-09-10] MEDS: DEXTROSE 50%-WATER INJ 50 ML SYRINGE IV (05:35)
[2024-09-10] MEDS: Sodium Bicarb Inj 8.4% SYR 50 ML SYRINGE IV (05:35)
[2024-09-10] MEDS: DEXTROSE 5%-LACTATED RINGERS 1,000 ML 100 ML IV (06:02)
[2024-09-10 06:07] LABS: Alanine Aminotransferase < 7 U/L (10-49); Albumin, Serum 2.7 gm/dL (3.4-4.8); Albumin/Globulin Ratio 0.9 (1.2-2.2); Alkaline Phosphatase 331 U/L (46-116); Anion Gap 13 (7-16); Aspartate Amino Transferase 44 U/L (0-34); BUN/Creatinine Ratio 6 Ratio (12-20); Bilirubin,Total 0.4 mg/dL (0.3-1.2); Blood Urea Nitrogen 43 mg/dL (9-23); Calcium 9.3 mg/dL (8.3-10.6); Calcium (Corrected) 10.3 mg/dL (8.5-10.1); Carbon Dioxide 20.1 mMol/L (20.0-31.0); Chloride 99 mMol/L (98-107); Creatinine (Component) 6.9 mg/dL (0.6-1.3); Estimated Creatinine Clearance 9.3 mL/min (>60); Glucose 106 mg/dL (74-106); Magnesium 2.7 mg/dL (1.6-2.6); Osmolality,Calculated 275 (275-295); Phosphorous 5.4 mg/dL (2.4-5.1); Potassium 3.5 mMol/L (3.4-5.1); Sodium 132 mMol/L (136-145); Total Protein 5.7 gm/dL (5.7-8.2); eGFR 8 See Note
--- NOTE | 2024-09-10 06:51 | PC.NURSE ---
Notified Dr Cordova of following labs 22:35 Trop 0.825 and LA 4.3 05:10 LA 5.5 05:17 PH 7.14
[2024-09-10 07:26] LABS: Troponin I 1.501 ng/mL (0.0-0.045)
--- NOTE | 2024-09-10 07:27 | EKG_ITS ---
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: JHONATHAN : 1945 Requested By: Paula Melendez Order Number: [id number] Reading MD: Paula Melendez Measurements Intervals [place] Rate: 94 P: NM: QRS: -1 QRSD: 96 T: 132 QT: 367 QTc: 459 Interpretive Statements ATRIAL FIBRILLATION WITH ABERRANT CONDUCTION OR VENTRICULAR PREMATURE COMPLEXES ST DEVIATION AND MODERATE T-WAVE ABNORMALITY, CONSIDER ANTEROLATERAL ISCHEMIA Compared to ECG 09/09/2024 16:47:19 Ventricular premature complex(es) now present Aberrant conduction of supraventricular beat(s) now present T-wave abnormality now present Possible ischemia now present Myocardial infarct finding no longer present /store/S0/[id number].pdf
--- NOTE | 2024-09-10 07:30 | EKG_ITS ---
[facility] Test Date: 2024-09-10 Pat Name: DIANNA RANDALL Department: Room: S256A Gender: Male End Trimmer: BRANT : 1945 Requested By: Paula Melendez Order Number: [id number] Reading MD: Paula Melendez Measurements Intervals [place] Rate: 73 P: AR: QRS: -18 QRSD: 118 T: 69 QT: 460 QTc: 509 Interpretive Statements ATRIAL FIBRILLATION MODERATE INTRAVENTRICULAR CONDUCTION DELAY MODERATE ST DEPRESSION PROLONGED QT INTERVAL Compared to ECG 09/10/2024 08:02:44 Intraventricular conduction delay now present ST (T wave) deviation now present Prolonged QT interval now present Ventricular premature complex(es) no longer present Aberrant conduction of supraventricular beat(s) no longer present T-wave abnormality no longer present Possible ischemia no longer present /store/S0/[id number].pdf
[2024-09-10] MEDS: fentaNYL 2,500 MCG/250 ML BAG 2,500 MCG/250 ML BAG 17.5 MCG IV ×2 (07:40→21:58)
[2024-09-10] MEDS: Sodium Bicarb Inj 8.4% SYR 50 ML SYRINGE 150 ML IV ×2 (07:55→17:07)
--- NOTE | 2024-09-10 07:55 | XR_ITS ---
Examination: CT abdomen and pelvis without contrast. Coronal 3-D reconstructions. Sagittal 2-D reconstructions. Date and time of exam:September 10, 2024 0850 hours INDICATIONS: Acute abdominal pain today CTDI: vol (mGy): 17.9 DLP: (mGycm): 1198 Technique: Axial images of the abdomen have been obtained, 3 mm slice thickness Intravenous contrast material has not been administered. Low dose protocols were performed. One or more of the following dose reduction techniques were used; automated exposure control, adjustment of the mA and/or KV according to patient size, use of iterative reconstruction technique. Findings: Extensive bibasilar pneumonia with small to moderate bilateral pleural effusions Liver irregular in contour Mild fluid subcapsular to the liver and trace ascites No gallstones Spleen is not enlarged No pancreatic or adrenal mass 30 mm upper pole left renal cyst Renal cortical thinning with perinephric stranding No hydronephrosis Mildly fluid and contrast distended small bowel loops Normal appendix No bowel obstruction Presumed peritoneal dialysis catheter Intact urinary bladder Transverse prostate dimension 3.5 cm Prominent osteopenia IMPRESSION: Extensive bibasilar pneumonia Primary hepatocellular disease versus cirrhosis Mild free fluid in the abdomen Prominent renal cortical thinning marshall kidneys Mild small bowel ileus
[2024-09-10 07:59] LABS: Reflex Lactate? Y
[2024-09-10 08:03] LABS: Base Excess -7 (-3-3); HCO3 20 mEq/L (20-26); Inspired Oxygen, FIO2 100 %; O2 Saturation 93 % (91-98); PCO2 48 mmHg (32.0-48.0); PO2 68 mmHg (83-108); pH, Arterial 7.23 (7.35-7.45)
[2024-09-10] MEDS: VASOPRESSIN IN NS IVPB 20 UNIT/100 ML BAG 9 UNIT IV ×2 (08:05→17:50)
[2024-09-10 08:06] LABS: Allen Test Not Performed; Puncture Site Arterial Line
--- NOTE | 2024-09-10 08:13 | ECHO_ITS ---
Transthoracic Echo Report Ht (in): 68 Wt (lb): 187 Exam Location: Echo Lab Status: Inpatient [place] Vibrator: LUCILLE Horton^^^^ Indications: Procedure Performed: BP: 139 / 56 HR: Rhythm: Atrial fibrillation Technical Quality: Technically difficult study MEASUREMENTS (Male / Female) Normal Values 2D ECHO LV Diastolic Diameter PLAX 2.8 cm 4.2 - 5.9 / 3.9 - 5.3 cm LV Systolic Diameter PLAX 3.3 cm IVS Diastolic Thickness 0.7 cm 0.6 - 1.0 / 0.6 - 0.9 cm LVPW Diastolic Thickness 2.8 cm 0.6 - 1.0 / 0.6 - 0.9 cm LV Relative Wall Thickness 1.2 RV Internal Dim ED PLAX 2.4 cm LVOT Diameter 1.6 cm Aortic Root Diameter 3.6 cm LA Systolic Diameter LX 3.4 cm 3.0 - 4.0 / 2.7 - 3.8 cm LA Volume Index 40.1 cm?/m? 16 - 28 cm?/m? Ascending Aorta Diameter 3.3 cm DOPPLER AV Peak Velocity 162.5 cm/s AV Peak Gradient 10.6 mmHg AV Mean Gradient 5.0 mmHg AV Velocity Time Integral 24.5 cm AI Peak Velocity 172.0 cm/s AI Peak Gradient 11.8 mmHg AI Pressure Half Time 476.0 ms LVOT Peak Velocity 121.0 cm/s LVOT Peak Gradient 5.9 mmHg LVOT Velocity Time Integral 25.4 cm AV Area Cont Eq vti 2.1 cm? AV Area Cont Eq pk 1.5 cm? MV Area PHT 3.7 cm? Mitral E Point Velocity 86.0 cm/s Mitral A Point Velocity 81.1 cm/s Mitral E to A Ratio 1.1 LV E' Lateral Velocity 5.0 cm/s Mitral E to LV E' Lateral Ratio 17.4 LV E' Septal Velocity 6.6 cm/s Mitral E to LV E' Septal Ratio 13.1 TR Peak Velocity 221.0 cm/s TR Peak Gradient 19.5 mmHg PV Peak Velocity 128.0 cm/s PV Peak Gradient 6.6 mmHg RVOT Peak Velocity 111.0 cm/s FINDINGS Left Ventricle The left ventricular ejection fraction is normal, EF 55-60%. There is grade II diastolic dysfunction of the left ventricle (pseudonormal filling pattern). Right Ventricle The right ventricle is normal in size and systolic function. The estimated right ventricular systolic pressure, 25 mmHg. Left Atrium The left atrial cavity size is mildly increased. Right Atrium The right atrium is normal by two-dimensional imaging, color flow and Doppler imaging with no structural abnormalities, no thrombus formation present. Atrial Septum The interatrial septum appears normal with no evidence of a shunt. Aorta The aorta is normal by two-dimensional, color flow and Doppler interrogation. Mitral Valve Mild thickening of the mitral valve leaflets. Mild mitral regurgitation. Aortic Valve Mild thickening of the aortic valve leaflets. Mild aortic valve regurgitation. Tricuspid Valve There is mild tricuspid valve regurgitation. Pulmonic Valve Trivial pulmonic valve regurgitation. Vessels The pulmonary artery appears normal. The inferior vena cava pulmonary and hepatic veins appear normal. Pericardium The pericardium is normal by two-dimensional imaging. There is no significant pericardial effusion. CONCLUSIONS indication: s/p cardiac arrest Normal left ventricular size and function. Approximate ejection fraction is 60% Normal RV function MAC with mild MR Aortic vlve sclerosis with no stenosis and mild aortci regurgitation Lisa Hernandez (Electronically Signed) Final Date: 10 September 2024 14:42
--- NOTE | 2024-09-10 08:40 | PC.PT ---
Patient was transferred to ICU and is on mechanical ventilator. Patient will be D/C from PT at this time.
--- NOTE | 2024-09-10 09:18 | ESPR_ITS ---
<Statement entered by Adalberto Lemus MD - 09/11/24 08:05> TOTAL CC TIME: 65 MIN I saw and evaluated the patient. I reviewed the resident?s note and agree with findings and plan as documented in the resident?s note. Upon my evaluation, this patient had a high probability of imminent or life- threatening deterioration due to acute hypoxic respiratory failure, septic shock, pneumonia which required my direct attention, intervention, and personal management. This time is exclusive of time spent on procedures, which are documented separately if performed. Patient with multisystem organ dysfunction. History of hepatic insufficiency and documented cirrhosis although coagulation studies are within normal limits, end-stage renal failure. Admitted with severe sepsis from SBP, complicated by aspiration pneumonia and septic shock with acute hypoxic respiratory failure. Bedside POCUS demonstrated plethoric IVC mild dilation of the RV but with fair right ventricular function. Significant LVH was lowered to ventricular volume. Fluids were withheld due to the high right-sided filling pressures. Septic shock was progressive with increasing pressor requirements. Family was updated regarding overall poor prognosis. Temporary hemodialysis catheter was placed for hemodialysis given patient was unable to undergo peritoneal dialysis. Stat CT abdomen pelvis failed to demonstrate intra-abdominal new pathology to explain worsening septic shock Documentation for date of: 09/10/24 Subjective Subjective Interval history: Colby Beard is a 78-year-old male with a past medical hisstory of ESRD on PD since 2019 (follows Dr. Collado in [place]), hypertension, hyperlipidemia, insulin-dependent type 2 diabetes mellitus, and diabetic neuropathy who presented with two days of fever, chills, and nonbloody diarrhea on 09/01. Associated generalized abdominal pain that was sudden onset and cramping in nature. No hematemesis, hematochezia or melena. In ED, patient afebrile and WBC wnl, but pleural fluid analysis from PD catheter showed > 14,[address] A/P showed primary hepatocellular disease vs cirrhosis, atrophic absent[place] kidneys, and free fluid in pelvis. Admitted for management of PD-catheter associated peritonitis and started on cefazolin and cefepime administered via PD catheter. [employer], Dr. Sinclair, consulted and is closely following the case. Perotonitis resolved, however, concerns for SBO after noted to have significant distention on exam so CT A/P showed significant fluid-distended small bowel loops. Thus, Gastrografin small bowel series was started. After given Gastrografin, patient went to get first of series of imaging and noted to be nausous. Upon returning, patient had epsidoe of emesis and SpO2 dropped and so rapid response was called at approximately 1540. En route, nick ramírez was called as patient became unresponsive and was without a pulse. Chest compressions initiated and air sampling and monitoring showed PEA. Had 3 rounds of epinephrine, 2 ampules of HCO3, 1 ampule of CaCl and VF was seen on monitor. Received 1 shock of 150 J and ROSC was obtained. Intubated by Dr. Hernandez and subsequently transferred to ICU for mechanical ventilation with pressor support. 09/10: Seen and examined in ICU. No acute overnight events reported. Continues to be sedated on propofol and fentanyl and pressures include vasopressin and Levophed. Status postplacement of right IJ central line in right femoral arterial line on 09/09. Serial ABGs starting at 0440 showed some improvement in pH from 7.14 to 7.24, pCO2 from 60 to 54, pCO2 from [address] A/P showed extensive bibasilar pneumonia, mild free fluid in the abdomen, and mild small bowel ileus - no signs of surgical abdomen. Troponins uptrending since code blue on 09/09 and repeat EKG showed no significant ST changes. CT head obtained showed acute/subacute infarcts and bilateral occipital lobes with mild hemorrhagic transformation. Left internal jugular Vas-Cath placed for hemodialysis, however after 5 minutes of dialysis CODE BLUE was activated that 1629. Please see event note for details. Family updated on clinical condition and prognosis. Exam Vital Signs Temp Pulse Resp BP Pulse Ox O2 Del Method FiO2 97.5 F 90 34 H 140/62 H 99 Room Air 100 09/10/24 04:00 09/10/24 06:26 09/10/24 06:22 09/10/24 06:15 09/10/24 06:26 09/09/24 12:00 09/10/24 06:26 Narrative Exam General: sedated and mechanically ventilated HEENT: NC/AT, mucous membranes moist, bilateral sclera anicteric Cardiovascular: tachycardic, S1/S2 present, no murmurs appreciated Pulmonary: clear to auscultation bilaterally Abdominal: distended, soft Musculoskeletal: normal ROM, no peripheral edema Skin: warm and dry, intact, no rashes Neuro: sedated Objective Labs 09/10/24 16:40 09/10/24 16:40 Labs: Laboratory Results - last 24 hr 09/09/24 09/09/24 09/09/24 16:22 16:34 19:07 WBC 16.9 H D RBC 3.93 L Hgb 11.3 L Hct 33.8 L MCV 86 MCH 28.8 MCHC 33.4 RDW Std Deviation 46.9 H Plt Count 199 D Neut % (Auto) 68 Lymph % (Auto) 20 Blaine % (Auto) 4 Eos % (Auto) 1 Baso % (Auto) 0 Neut # (Auto) 11.5 H Lymph # (Auto) 3.4 Blaine # (Auto) 0.7 Eos # (Auto) 0.2 Baso # (Auto) 0.1 Immature Gran # (Auto) 1.07 H Absolute Nucleated RBC 0.32 H Immature Gran % 6 H Nucleated RBC % 2 H PT 10.9 INR 1.0 APTT 30.1 Puncture Site Right Radial Arterial Line ABG pH 7.22 L D 7.28 L ABG pCO2 62 H D 54 H ABG pO2 301 H D 104 D ABG HCO3 25 25 ABG O2 Saturation 101 H 98 ABG Base Excess -3 -2 VBG pH 7.25 L VBG pCO2 61 H VBG pO2 47 VBG O2 Sat (Syl) 79 L VBG Base Excess -2 FiO2 100 70 Sodium 131 L Potassium 3.9 Chloride 96 L Carbon Dioxide 24.7 Anion Gap 10 BUN 43 H Creatinine 6.8 H* D Estim Creat Clear Calc 9.4 L eGFR 8 L* BUN/Creatinine Ratio 6 L Glucose 142 H D Calculated Osmolality 275 Lactic Acid 5.7 H* 2.9 H Calcium 10.4 Corrected Calcium 11.4 H D Phosphorus 6.2 H Magnesium 2.7 H Total Bilirubin 0.3 AST 50 H ALT 10 Alkaline Phosphatase < 20 L D Troponin I 0.050 H* Total Protein 5.9 Albumin 2.8 L Globulin 3.1 Albumin/Globulin Ratio 0.9 L 09/09/24 09/10/24 09/10/24 22:35 00:07 04:30 WBC 33.7 H D RBC 4.32 L Hgb 12.3 L Hct 37.7 L MCV 87 MCH 28.5 MCHC 32.6 RDW Std Deviation 48.6 H Plt Count 200 Neut % (Auto) 92 H Lymph % (Auto) 4 L Blaine % (Auto) 2 Eos % (Auto) 1 Baso % (Auto) 1 Neut # (Auto) 31.0 H Lymph # (Auto) 1.2 Blaine # (Auto) 0.6 Eos # (Auto) 0.2 Baso # (Auto) 0.2 Immature Gran # (Auto) 0.53 H Absolute Nucleated RBC 1.54 H Immature Gran % 2 H Nucleated RBC % 5 H PT INR APTT Puncture Site Arterial Line ABG pH 7.21 L ABG pCO2 56 H ABG pO2 130 H D ABG HCO3 22 ABG O2 Saturation 99 H ABG Base Excess -6 L VBG pH VBG pCO2 VBG pO2 VBG O2 Sat (Syl) VBG Base Excess FiO2 21 Sodium 132 L Potassium 3.5 Chloride 99 Carbon Dioxide 20.1 Anion Gap 13 BUN 43 H Creatinine 6.9 H* Estim Creat Clear Calc 9.3 L eGFR 8 L* BUN/Creatinine Ratio 6 L Glucose 106 Calculated Osmolality 275 Lactic Acid 4.3 H* 5.5 H* Calcium 9.3 Corrected Calcium 10.3 H Phosphorus 5.4 H Magnesium 2.7 H Total Bilirubin 0.4 AST 44 H ALT < 7 L Alkaline Phosphatase 331 H D Troponin I 0.825 H* D Total Protein 5.7 Albumin 2.7 L Globulin 3.0 Albumin/Globulin Ratio 0.9 L 09/10/24 09/10/24 09/10/24 04:40 06:35 07:55 WBC RBC Hgb Hct MCV MCH MCHC RDW Std Deviation Plt Count Neut % (Auto) Lymph % (Auto) Blaine % (Auto) Eos % (Auto) Baso % (Auto) Neut # (Auto) Lymph # (Auto) Blaine # (Auto) Eos # (Auto) Baso # (Auto) Immature Gran # (Auto) Absolute Nucleated RBC Immature Gran % Nucleated RBC % PT INR APTT Puncture Site Arterial Line Arterial Line ABG pH 7.14 L* 7.23 L ABG pCO2 60 H 48 D ABG pO2 86 D 68 L ABG HCO3 21 20 ABG O2 Saturation 95 93 ABG Base Excess -9 L -7 L VBG pH VBG pCO2 VBG pO2 VBG O2 Sat (Syl) VBG Base Excess FiO2 100 100 Sodium Potassium Chloride Carbon Dioxide Anion Gap BUN Creatinine Estim Creat Clear Calc eGFR BUN/Creatinine Ratio Glucose Calculated Osmolality Lactic Acid Calcium Corrected Calcium Phosphorus Magnesium Total Bilirubin AST ALT Alkaline Phosphatase Troponin I 1.501 H* D Total Protein Albumin Globulin Albumin/Globulin Ratio ABG Interpretation ABG results: 09/07/24 09/09/24 09/09/24 13:21 16:34 19:07 ABG pH 7.35 7.22 L D 7.28 L ABG pCO2 47 62 H D 54 H ABG pO2 79 L 301 H D 104 D ABG HCO3 26 25 25 ABG O2 Saturation 97 101 H 98 ABG Base Excess 0 -3 -2 VBG pH 7.25 L VBG pCO2 61 H VBG pO2 47 VBG Base Excess -2 09/10/24 09/10/24 09/10/24 00:07 04:40 07:55 ABG pH 7.21 L 7.14 L* 7.23 L ABG pCO2 56 H 60 H 48 D ABG pO2 130 H D 86 D 68 L ABG HCO3 22 21 20 ABG O2 Saturation 99 H 95 93 ABG Base Excess -6 L -9 L -7 L VBG pH VBG pCO2 VBG pO2 VBG Base Excess Quality Measures Quality Measures VTE prophylaxis Advance care planning discussed with:: child Assessment & Plan Assessment Current Active Medications: Generic Name Dose Route Start Last Admin Trade Name Freq PRN Reason Stop Dose Admin Acetaminophen 650 mg 09/01/24 17:55 09/08/24 21:33 Acetaminophen 325 Mg Tablet PO 10/01/24 17:54 650 mg Q6H PRN Administration Fever >100.3 or pain Protocol Albuterol/Ipratropium 3 ml 09/10/24 02:00 09/10/24 06:20 Albuterol/Ipratropium (Duoneb) Rt Jessenia 3 Ml Nebu INH 10/10/24 01:59 3 ml Q4HR BRIANA Administration Atorvastatin Calcium 10 mg 09/02/24 09:00 09/09/24 09:10 Atorvastatin Calcium 10 Mg Tablet PO 10/02/24 08:59 10 mg QDAY BRIANA Administration Dextrose 25 ml 09/05/24 04:34 Dextrose 50%-Water Inj 50 Ml Syringe IV 10/05/24 04:33 Q15MIN PRN BG 50-70 responsive npo pt Dextrose 50 ml 09/09/24 08:49 09/09/24 22:16 Dextrose 50%-Water Inj 50 Ml Syringe IV 10/09/24 08:48 50 ml Q15MIN PRN Administration BG <50 OR BG <70 & pt unresponsive Glucagon 1 mg 09/09/24 08:49 Glucagon Inj 1 Mg Vial IM Q15MIN PRN BG <70, and no IV access Guaifenesin 200 mg 09/05/24 21:00 09/08/24 09:36 Guaifenesin Syrup 200 Mg/10 Ml Udc PO 10/05/24 20:59 200 mg BID BRIANA Administration Protocol Heparin Sodium (Porcine) 3,000 unit 09/06/24 19:01 09/06/24 19:09 Heparin Sod Inj 1000 Unit/Ml Vial 10 Ml IV 09/20/24 19:00 3,000 unit X1 PRN Administration DIALYSIS Norepinephrine Bitartrate 16 mg in 250 mls @ 3.891 mls/hr 09/09/24 16:08 09/10/24 06:00 Levophed In Ns 16mg/250ml IV 10/09/24 16:07 1 mcg/kg/min .Q24H PRN 77.813 mls/hr PER PROTOCOL Titration Protocol 0.05 MCG/KG/MIN Amiodarone HCl/Dextrose 360 mg in 200 mls @ 16.667 mls/hr 09/09/24 22:09 09/09/24 21:47 Nexterone Ivpb IV 09/10/24 22:08 Not Given .Q12H BRIANA Piperacillin/Tazobactam/Dextrose 50 mls @ 12.5 mls/hr 09/10/24 09:00 Zosyn IV 09/16/24 16:37 Q12HR BRIANA Propofol 1,000 mg in 100 mls @ 2.49 mls/hr 09/09/24 16:51 09/10/24 07:00 Diprivan Ivpb IV 10/09/24 16:09 15 mcg/kg/min .Q24H PRN 7.47 mls/hr PER PROTOCOL Titration Protocol 5 MCG/KG/MIN Fentanyl Citrate 2,500 mcg in 250 mls @ 2.5 mls/hr 09/09/24 16:51 09/10/24 07:40 Sublimaze Inj 2,500 Mcg/250 Ml Bag IV 09/14/24 16:10 175 mcg/hr .Q24H PRN 17.5 mls/hr PER PROTOCOL Administration Protocol 25 MCG/HR Vasopressin/Sodium Chloride 20 unit in 100 mls @ 9 mls/hr 09/09/24 22:08 09/10/24 08:05 Vasostrict/Ns Ivpb IV 10/09/24 22:07 0.03 unit/min .Q11H7M PRN 9 mls/hr PER PROTOCOL Administration Protocol 0.03 UNIT/MIN Dextrose/Lactated Ringer's 1,000 mls @ 100 mls/hr 09/10/24 05:45 09/10/24 06:02 D5-Lr IV 10/10/24 05:44 100 mls/hr .Q10H BRIANA Administration Insulin Glargine 30 unit 09/08/24 09:30 09/09/24 09:11 Insulin Glargine (Lantus) 5 Unit/0.05 Ml (Per 5 Units) SC 10/08/24 09:29 30 unit QDAY BRIANA Administration Insulin Human Lispro 5 unit 09/08/24 17:30 09/09/24 18:42 Insulin Lispro (Admelog) 1 Unit/0.01 Ml Unit SC 10/08/24 17:29 Not Given TIDWM BRIANA Insulin Human Lispro 0 unit 09/10/24 00:00 09/10/24 05:41 Insulin Lispro (Admelog) 1 Unit/0.01 Ml Unit SC 10/10/24 00:00 Not Given Q6HR [facility] Protocol Midodrine 10 mg 09/07/24 17:48 Midodrine 5 Mg Tablet PO 10/03/24 15:14 TID PRN MAP < 65 Ondansetron HCl 4 mg 09/01/24 17:59 09/09/24 12:56 Ondansetron Inj 2 Mg/Ml Inj 2 Ml IV 10/01/24 17:58 4 mg Q6H PRN Administration NAUSEA OR VOMITING Protocol Pantoprazole Sodium 40 mg 09/01/24 18:00 09/09/24 09:11 Pantoprazole Inj 40 Mg Vial IVP 10/01/24 17:59 40 mg QDAY BRIANA Administration Polyethylene Glycol 17 gm 09/05/24 09:45 09/09/24 09:10 Polyethylene Glycol 17 Gm Packet PO 10/05/24 09:44 17 gm QDAY BRIANA Administration Sennosides 1 tab 09/04/24 16:15 09/09/24 09:10 Senna/Docusate Sod 1 Tab Tablet PO 10/04/24 16:14 1 tab QDAY BRIANA Administration Protocol Sodium Chloride 3 ml 09/09/24 23:30 Sodium Chloride Rt Jessenia 0.9% 3 Ml Nebu INH 10/09/24 23:29 PRN PRN SOLN Tamsulosin HCl 0.4 mg 09/02/24 09:00 09/08/24 09:36 Tamsulosin Hcl 0.4 Mg Capsule PO 10/02/24 08:59 0.4 mg QDAY BRIANA Administration Plan Colby Beard is a 78-year-old male with a past medical hisstory of ESRD on PD since 2019 (follows Dr. Collado in [place]), hypertension, hyperlipidemia, insulin-dependent type 2 diabetes mellitus, and diabetic neuropathy who was admitted for management of PD-catheter associated peritonitis. On 09/09, nick ramírez called for PEA and patient intubated and upgraded to ICU. Neurological #Sedated on mechanical ventilation Goal of RASS -5 - Continue fentanyl and propofol drips Cardiovascular #Pulseless electrical activity, s/p resuscitation 0n 09/09 and 09/10 #Ventricular fibrillation, s/p cardioversion RR at 1540 and while en route, nick ramírez called for pulseless electrical activity. Upon arrival, informed by nurse that patient returned from small bowel series and endorsed nausea and subsequently had episode of emesis and SpO2 dropped, became unresponsive, and without a pulse. Chest compressions initiated and air sampling and monitoring showed PEA. Had 3 rounds of epinephrine, 2 ampules of HCO3, 1 ampule of CaCl and VF was seen on monitor. Received 1 shock of 150 J and ROSC was obtained. Intubated by Dr. Hernandez and subsequently transferred to ICU for mechanical ventilation with pressor support. Second code desiree on 09/10 after SBP in 30s without a pulse. 3 rounds of CPR with totoal of 3 g of epi, 1 amp of bicarb, 1 g of calcium chloride, and 400 cc of LR. ROSC was achieved at 1636. Bedside US showed good contractility. Fingerstick glucose wnl. Stat ABG, lactate, troponins, EKG, CXR, CBC, and CMP were completed. 3 additional amps of bicarb were given. Family was immediately notified of the situation. Lactate already trending and increased from 7.0 to 7.7 and troponin increased from 1.78 to 2.1. ABG showed pH 7.18, pCO2 69, pO2 138. Repeat ABG 1 hour later showed pH 7.35, P CO2 51, pO2 97. CXR showed no acute interval changes and EKG without significant ST changes. #Shock, likely distributive (septic) #Hypotension, requiring pressor support Status-post PEA, however patient received 3 rounds of epinephrine. Additionally, WBC noted to increase but may be due to aspiration pneumonitis. Bedside echo on 09/10 showed good contraction of left ventricle although decreased volume as well as patent IVC, suggesting less likely cardiogenic shock. - Continue Levophed and vasopressin #Atrial fibrillation, paroxysmal - Will defer AC at this time as patient underwent multiple procedures after code blue - Amiodarone drip (09/09-) Pulmonary #Mechanically ventilated Intubated during code blue for airway protection in likely setting of aspiration. - VT 400, RR 24, PEEP 5, FiO2 70% #? Aspiration pneumonitis Witnessed episode of emesis during code blue and patient likely aspirated stomach contents. Stat CXR s/p intubation showed right-sided infiltrate and CXR 1 hour later showed interval improvement. Repeat CBC showed interval increase in WBC from 8.4 to 16.9. - Zosyn and vancomycin - Follow-up sputum culture Gastrointestinal #? Ileus vs small bowel obstruction Abdominal distention on exam. CT A/P on 09/08 showed significant fluid- distended small bowel loops, suspicious for SBO. Underwent first of small bowel series when patient became nauseous and had episode of emesis and subsequent code blue. CT A/P on 09/10 showed extensive bibasilar pneumonia, mild small bowel ileus, mild free fluid in the abdomen - no signs of SBO. - NG tube with low intermittent suctioning #Spontaneous bacterial peritonitis, resolved Peritoneal fluid analysis improved, with PMNs downtrendin,000 -> 9000 -> 500 Peritoneal fluid culture from 09/01 grew Acinetobacter baumannii that was sensitive to cefepime. Cleared by nephrology for discharge and advised to follow-up outpatient with Dr. Collado. - Dr. Sinclair consulted and following Renal #Metabolic acidosis secondary to elevated lactate vs hypercapnia, resolved Most recent ABG showed pH 7.35, pCO2 51, pO2 97 - Continue ventilator settings as above #Elevated lactate, in setting of cardiac arrest - Continue to trend #ESRD on peritoneal dialysis Peritoneal fluid analysis improved, with PMNs downtrendin,000 -> 9000 -> 500 Peritoneal fluid culture from 09/01 grew Acinetobacter baumannii that was sensitive to cefepime. Cleared by nephrology for discharge and advised to follow-up outpatient with Dr. Collado. - Dr. Sinclair consulted and following - Holding dialysis after code blue Heme #Leukocytosis, secondary to aspiration pneumonitis - See pulmonary above Endocrine #Type 2 diabetes mellitus, insulin-dependent A1c 9.2%. Noted to have difficult to control blood sugars and recent hypoglycemic episodes due to decreased PO intake. - Hold lantus at this time - SSI q6hr Infectious disease #Spontaneous bacterial peritonitis - See GI above #? Aspiration pneumonitis - See pulmonary above Antibiotics: Zosyn and vancomycin: 09/09- Blood culture 09/09: pending Sputum culture 09/09: pending Hospital management: Disposition: mechanically ventilated, sedated, and on pressors Sedation: propofol and fentanyl Pressor: levophed and vasopressin Fluids: none Diet: NPO, NG tube placed Lines: central line (right IJ), arterial line (right femoral), vasc-cath (left IJ) DVT prophylaxis: pantoprazole IV GI prophylaxis: NO AC DUE TO STROKE WITH HEMORRHAGIC CONVERSION CODE STATUS: full code ----- Plan discussed with attending physician Dr. Allan Osborn MD PGY-1 Internal Medicine
[2024-09-10] MEDS: PIPER/TAZO 3.375 GM 50 ML IV ×2 (09:51→20:49)
[2024-09-10] MEDS: PANTOPRAZOLE INJ 40 MG VIAL IVP (09:51)
[2024-09-10] MEDS: Norepinephrine/NS 16mg/250ml 16 MG/250 ML BAG 84.038 MG IV ×2 (12:08→15:08)
[2024-09-10] MEDS: AMIODARONE 360 MG IVPB 360 MG/200 ML BAG 16.667 MG IV (13:21)
[2024-09-10 14:42] LABS: Troponin I 1.779 ng/mL (0.0-0.045)
--- NOTE | 2024-09-10 15:32 | XR_ITS ---
Examination: AP chest single view Technique one AP portable semiupright chest single view Exam date and time: September 10, 2024 1553 hours Comparison September 10, 2024 INDICATIONS: Post temporary dialysis catheter placement FINDINGS: Left internal jugular temporary dialysis catheter tip SVC Right internal jugular central line tip SVC satisfactory position Tracheal tube tip 5.4 cm above joe Mild heart failure Significant bibasilar pneumonia IMPRESSION: Interval left internal jugular temporary dialysis catheter tip SVC satisfactory position
--- NOTE | 2024-09-10 16:01 | PC.SS ---
SS update: patient had rapid response called yesterday and transitioned to ICU for mechanical ventilation and higher level of care. Patient also pending authorization to [facility] in [place].
--- NOTE | 2024-09-10 16:08 | ESOP_ITS ---
<Statement entered by Adalberto Lemus MD - 09/11/24 08:03> I was present for the critical and rodriges portions of the procedure and was immediately available to provide assistance. Procedures Procedure Date / Time 09/10/24 1530 Arterial Line Size (Gauge): 14 Central Line Placement Left IJ: Indication(s): other (Vasc-cath for hemodialysis) Informed consent obtained: obtained from surrogate decision maker Time out done, and the following verified: correct patient, side and site and procedure Patient placed on monitor/pulse ox: Yes Max Sterile Barrier Techniques used: cap, mask, sterile gown, sterile gloves and sterile full body drape Central line prep: Chlorhexidine scrub Ultrasound used for placement: Yes Sterile Technique if Ultrasound used, including sterile gel: yes Post procedure: sutured in place, all ports aspirated, flushed, capped and sterile dressing applied Post procedure x-ray: tip of catheter in good position and no pneumothorax seen Patient tolerated procedure: well and no complications EBL(ml): 2 Complications: none Procedure comment: Procedure done under direct supervision of my senior Dr. Daniel DO and attending Dr. Lemus.
[2024-09-10 16:11] LABS: Base Excess -5 (-3-3); HCO3 23 mEq/L (20-26); O2 Saturation 97 % (91-98); PCO2 54 mmHg (32.0-48.0); PO2 94 mmHg (83-108); pH, Arterial 7.24 (7.35-7.45)
[2024-09-10] MEDS: ALBUMIN HUMAN 25% IVPB 25 GM/100 ML BTL IV (16:25)
--- NOTE | 2024-09-10 16:25 | PC.NURSE ---
BP TRENDING DOWN, WILL ADMIN PRN ALBUMIN AND CONT. TO MONITOR. BEDSIDE NURSE NOTIFIED
[2024-09-10 16:39] LABS: Allen Test Not Performed; Inspired Oxygen, FIO2 100 %; Puncture Site Arterial Line
--- NOTE | 2024-09-10 16:41 | XR_ITS ---
Examination: AP chest single view Technique one AP portable supine chest single view Exam date and time: September 10, 2024 1652 hrs. Comparison September 10, 2024 1553 hrs. Indications: Status post cardiopulmonary arrest Findings: Moderate CHF Moderate enlargement cardiac contour with prominent vascular congestion perihilar edema Mild basilar additional density consistent with pneumonia Endotracheal tube tip 7.6 cm above joe The orogastric tube is in the stomach. Right internal jugular central line tip and left internal jugular temporary dialysis catheter tip proximal SVC satisfactory position, no pneumothoraces Impression: Moderate CHF Bibasilar pneumonia
[2024-09-10 16:48] LABS: Base Excess -3 (-3-3); HCO3 26 mEq/L (20-26); Inspired Oxygen, FIO2 100 %; O2 Saturation 99 % (91-98); PCO2 69 mmHg (32.0-48.0); PO2 138 mmHg (83-108)
[2024-09-10 16:51] LABS: Reflex Lactate? Y
[2024-09-10 16:54] LABS: Hepatitis A Antibody IgM Non Reactive (Non React); Hepatitis B Core Antibody IgM Non Reactive (Non React); Hepatitis B Surface Ab NonReact(Not Immune) (Immune); Hepatitis B Surface Antigen Non Reactive (Non React); Hepatitis C Antibody Non Reactive (Non React)
[2024-09-10 16:57] LABS: Allen Test Not Performed; Puncture Site Arterial Line
[2024-09-10 16:58] LABS: pH, Arterial 7.18 (7.35-7.45)
--- NOTE | 2024-09-10 16:59 | PC.NURSE ---
Addendum entered by Homer Lema RN 09/10/24 17:04: NO PULSE DETECTED, CPR STARTED. Original Note: BP CONT. TO DROP, ICU MD AT BEDSIDE, TX PAUSED PER MD
[2024-09-10 17:00] LABS: Basophils # (Auto) 0.1 Thou/mm3 (0.0-0.2); Basophils % (Auto) 1 % (0-2.5); Eosinophils # (Auto) 0.4 Thou/mm3 (0.0-0.5); Eosinophils % (Auto) 1 % (0-10); Hematocrit 31.7 % (41.0-53.0); Hemoglobin 10.5 g/dL (13.5-16.0); Immature Granulocytes % (Auto) 6 % (0-0); Immature Granulocytes Auto 1.55 Thou/mm3 (0.00-0.00); Lymphocytes # (Auto) 2.5 Thou/mm3 (1.0-4.8); Lymphocytes % (Auto) 9 % (10-50); Mean Corpuscular HGB Conc 33.1 g/dl (31.0-37.0); Mean Corpuscular Hemoglobin 28.7 pg (25.0-35.0); Mean Corpuscular Volume 87 fL (80-100); Monocytes # (Auto) 0.3 Thou/mm3 (0.0-0.8); Monocytes % (Auto) 1 % (0-12); Neutrophils # (Auto) 21.9 Thou/mm3 (1.8-7.7); Neutrophils % (Auto) 82 % (37-80); Nucleated Red Blood Cell # 0.78 Thou/mm3 (0.00-0.00); Nucleated Red Blood Cell % 3 /100 WBC (0); Platelet Count 149 Thou/mm3 (140-440); RDW Standard Deviation 48.9 fL (35.1-43.9); Red Blood Count 3.66 Miln/mm3 (4.50-5.90); White Blood Count 26.8 Thou/mm3 (3.8-10.6)
--- NOTE | 2024-09-10 17:03 | PC.NURSE ---
TX TERMINATED PER ICU MD, ALL BLOOD RETURNED. MD GERARD NOTIFIED.
[2024-09-10] MEDS: HEPARIN SOD INJ 1000 UNIT/ML VIAL 10 ML 3000 UNIT IV (17:17)
[2024-09-10 17:32] LABS: Lactate (Lactic Acid) 7.7 mMol/L (0.4-2.0)
--- NOTE | 2024-09-10 17:34 | EVENTNT_ITS ---
<Statement entered by Adalberto Lemus MD - 09/11/24 08:10> I saw and evaluated the patient. I reviewed the resident?s note and agree with findings and plan as documented in the resident?s note. Documentation for date of: 09/10/24 Event Note Event Note: CODE BLUE was activated at 1629. was alerted to SBPs in the 80s after 5 minutes of running dialysis. Pt was already on levophed 1 mcg/kg/min and 0.03 units/min vasopressin. Levophed went immediately up to 2 mcg/kg/min and Vasopressin up to 0.05 units/min without any improvement. After 20-30 seconds, SBPs was in the 30s without any pulse. CODE BLUE was immediately activated. Chest compressions was activated. PEA arrest. 3 rounds of CPR were done. Total 3 g of epi, 1 amp of bicarb, 1 g of calcium chloride, and 400 cc of LR. ROSC was achieved at 1636. Bedside US was completed and showed good contractility. Fingerstick glucose was within normal limits. STAT ABG, lactate, troponins, EKG, CXR, CBC, and CMP were completed. 3 additional amps of bicarb were given. Dialysis is being HELD at this time. Family was immediately notified of the situation. Maci Sanchez, PGY4 vice president integrated. Went over the plan with my atttending Dr. Lemus. ICU attending Dr. Lemus was immediately available throughout the code.
[2024-09-10] MEDS: Norepinephrine/NS 16mg/250ml 16 MG/250 ML BAG 155.625 MG IV (17:50)
[2024-09-10 18:00] LABS: Base Excess 2 (-3-3); HCO3 28 mEq/L (20-26); Inspired Oxygen, FIO2 100 %; O2 Saturation 99 % (91-98); PCO2 51 mmHg (32.0-48.0); PO2 97 mmHg (83-108); pH, Arterial 7.35 (7.35-7.45)
[2024-09-10] MEDS: VANCOMYCIN/NS 1 GM IVPB 200 ML IV (18:00)
[2024-09-10 18:01] LABS: Allen Test Not Performed; Puncture Site Arterial Line
[2024-09-10 18:03] LABS: Alanine Aminotransferase < 7 U/L (10-49); Albumin, Serum 2.8 gm/dL (3.4-4.8); Albumin/Globulin Ratio 1.2 (1.2-2.2); Alkaline Phosphatase 254 U/L (46-116); Anion Gap 15 (7-16); Aspartate Amino Transferase 42 U/L (0-34); BUN/Creatinine Ratio 7 Ratio (12-20); Bilirubin,Total 0.4 mg/dL (0.3-1.2); Blood Urea Nitrogen 39 mg/dL (9-23); Calcium 10.7 mg/dL (8.3-10.6); Calcium (Corrected) 11.7 mg/dL (8.5-10.1); Carbon Dioxide 24.7 mMol/L (20.0-31.0); Chloride 100 mMol/L (98-107); Creatinine (Component) 5.6 mg/dL (0.6-1.3); Estimated Creatinine Clearance 11.5 mL/min (>60); Globulin 2.4 gm/dL (2.3-3.5); Glucose 158 mg/dL (74-106); Magnesium 2.6 mg/dL (1.6-2.6); Osmolality,Calculated 291 (275-295); Potassium 3.4 mMol/L (3.4-5.1); Sodium 140 mMol/L (136-145); Total Protein 5.2 gm/dL (5.7-8.2); eGFR 10 See Note
[2024-09-10 18:04] LABS: Troponin I 2.094 ng/mL (0.0-0.045)
[2024-09-10 18:46] LABS: Lactate (Lactic Acid) 7.1 mMol/L (0.4-2.0)
[2024-09-10] MEDS: MIDAZOLAM INJ 1 MG/ML VIAL 2 ML 4 MG IV (19:31)
--- NOTE | 2024-09-10 19:44 | PC.NURSE ---
1929 patient having rob eye and throat twitching for 40 seconds, Dr. etienne notified, new orders for 4mg versed IV now. Medication given and seizures stopped @1931. Family at bedside and updated by Dr. Etienne, pending code status change. POC updated.
--- NOTE | 2024-09-10 19:50 | PD.RESEVENT ---
Documentation for date of: 09/10/24 Event Note Event Note: After lengthy discussion with patient's son Veronique Beard and other family members in regards to patient's current medical condition and guarded prognosis decision was made to transition patient's CODE STATUS to DNR. Prior to patient's changed to full code his previous wishes were to remain a DNR and with patient's current condition family agreed that this would be the most appropriate management. They also understood that patient likely is experiencing discomfort and will consider comfort measures tomorrow when more family has arrived to say their goodbyes. Patient's younger brother is expected to arrive Friday from [place] and family would like an opportunity for him to say goodbye. I explained to them that we will attempt to, date that request in accordance with the limitation of his CODE STATUS.
[2024-09-10 20:14] LABS: Reflex Lactate? Y
[2024-09-10] MEDS: Norepinephrine/NS 16mg/250ml 16 MG/250 ML BAG 58.359 MG IV (20:56)
[2024-09-10 21:44] LABS: Reflex Lactate? Y
[2024-09-10 23:00] LABS: Lactic Acid, 3 HR 5.4 mMol/L (0.4-2.0)
--- NOTE | 2024-09-10 23:26 | PD.NEUROCONS ---
History of Present Illness Data of Consult Requesting Physician: Jaya Rogel MD Primary Care Provider: Physician No Primary/Family Consult Narrative History of present illness: Mr. 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 He had associated generalized abdominal pain without any hematemesis, hematochezia or melena. Workup in the ER showed stable vital signs, normal CBC but pleural fluid analysis from PD catheter showed > 14,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 Admitted for management of PD-catheter associated peritonitis and started on cefazolin and cefepime administered via PD catheter. Subsequently Perotonitis resolved, however, concerns for SBO after noted to have significant distention on exam so CT A/P showed significant fluid-distended small bowel loops. Thus, Gastrografin small bowel series was started. After given Gastrografin, patient went to get first of series of imaging and noted to be nauseous. Upon returning, patient had epsidoe of emesis and SpO2 dropped and so rapid response was called at approximately 1540 on 09/09/2024. En route, code blue was called as patient became unresponsive and was without a pulse. Chest compressions initiated and monitor tech showed PEA. Patient subsequently underwent cardiopulmonary resuscitation, intubated and on mechanical ventilatory support and transferred to ICU. Neurology was consulted to evaluate for altered mental status. cc:: cc: Jaya Rogel MD Review of Systems Review of Systems ROS Unobtainable: unobtainable due to mental status Past Medical History Past Medical History Comments PMH COMMENT: Past medical history: ? ESRD on PD since 2019 ? Primary hypertension ? Insulin-dependent diabetes mellitus type 2 ? Diabetic neuropathy ? Hyperlipidemia Medication list: Awaiting reconcilliation Past surgical history: Nil Allergies: NKFDA Social history: Occupational History: Retired. 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 Marital Status: with 1 Kid Tobacco use: Denies. Remote use in his 20s ETHO use: Denies. Remote use in his 20s Illicit drug use: Denies Social History Note: Lives with his son and . At baseline ambulates with a cane Meds Home Medications and Allergies Home Medications ?Medication ?Instructions ?Recorded ?Confirmed ?Type atorvastatin 10 mg tablet 10 mg PO QDAY 09/11/19 09/01/24 History gabapentin 300 mg capsule 300 mg PO TID 09/11/19 09/01/24 History insulin aspart U-100 100 unit/mL 1 sliding scale dose subcut 09/11/19 09/01/24 History subcutaneous solution (Novolog USEASDIRECTD U-100 Insulin aspart) omeprazole 20 mg capsule,delayed 40 mg PO QDAY 09/11/19 09/01/24 History release calcium acetate(phosphat bind) 667 1,334 mg PO TIDWMEAL 09/01/24 09/01/24 History mg capsule carvedilol 6.25 mg tablet 6.25 mg PO Q12H 09/01/24 09/01/24 History losartan 50 mg tablet (Cozaar) 50 mg PO QDAY 09/01/24 09/01/24 History multi-vitamin no minerals 60 - 150 tab PO DAILY 09/01/24 09/01/24 History tamsulosin 0.4 mg capsule (Flomax) 0.4 mg PO QDAY 09/01/24 09/01/24 History tramadol 50 mg tablet 50 mg PO Q12H 09/01/24 09/01/24 History Allergies Allergy/AdvReac Type Severity Reaction Status Date / Time No Known Allergies Allergy Verified 09/01/24 14:42 Procedures Arterial Line Size (Gauge): 14 Exam - Neurology Vital Signs Temp Pulse Resp BP Pulse Ox O2 Del Method FiO2 96.8 F 91 35 H 149/63 H 99 Room Air 100 09/10/24 17:10 09/10/24 22:40 09/10/24 22:40 09/10/24 21:15 09/10/24 22:40 09/09/24 12:00 09/10/24 22:40 Narrative Exam GENERAL APPEARANCE: Well hydrated, well-nourished intubated and on mechanical ventilatory support HEENT: Normocephalic, atraumatic, Pupils: Equal reacting to light NECK: Supple, no JVD or bruits. CARDIOVASULAR: Heart: S1, S2 heard, regular without S3-S4 or murmur no rubs or gallops. LUNGS/CHEST: Bilateral Rales and rhonchi heard ABDOMEN: Soft, nontender, with normal bowel sounds. No pulsatile masses. No rebound, rigidity, or guarding. Normal inspection and palpation. EXTREMITIES: Edema in both lower extremities SKIN: Warm and dry without rashes. Normal inspection. MUSCULOSKELETAL: No cervical, thoracic, lumbar or midline bony tenderness. Normal inspection. NEURO: Remains unresponsive, no purposeful movements noted in both upper or lower extremities. He has myoclonus from hypoxia involving the eyelids. Brainstem function: Partly intact. PSYCHIATRIC: Limited Results Labs 09/10/24 16:40 09/10/24 16:40 Labs: Short CBC 09/10/24 09/10/24 Range/Units 04:30 16:40 WBC 33.7 H D 26.8 H D (3.8-10.6) Thou/mm3 Hgb 12.3 L 10.5 L (13.5-16.0) g/dL Hct 37.7 L 31.7 L (41.0-53.0) % Plt Count 200 149 D (140-440) Thou/mm3 BMP 09/10/24 09/10/24 04:30 16:40 Sodium 132 L 140 Potassium 3.5 3.4 Chloride 99 100 Carbon Dioxide 20.1 24.7 BUN 43 H 39 H Creatinine 6.9 H* 5.6 H* D Glucose 106 158 H D Calcium 9.3 10.7 H Cardiac Enzymes 09/09/24 09/10/24 09/10/24 Range/Units 22:35 06:35 13:26 Troponin I 0.825 H* D 1.501 H* D 1.779 H* D (0.0-0.045) ng/mL 09/10/24 Range/Units 16:40 Troponin I 2.094 H* D (0.0-0.045) ng/mL Liver Function 09/10/24 09/10/24 Range/Units 04:30 16:40 Total Bilirubin 0.4 0.4 (0.3-1.2) mg/dL AST 44 H 42 H (0-34) U/L ALT < 7 L < 7 L (10-49) U/L Alkaline Phosphatase 331 H D 254 H D (46-116) U/L Albumin 2.7 L 2.8 L (3.4-4.8) gm/dL ABG Interpretation ABG results: 02/06/2109/09/24 09/09/24 13:21 16:34 19:07 ABG pH 7.35 7.22 L D 7.28 L ABG pCO2 47 62 H D 54 H ABG pO2 79 L 301 H D 104 D ABG HCO3 26 25 25 ABG O2 Saturation 97 101 H 98 ABG Base Excess 0 -3 -2 VBG pH 7.25 L VBG pCO2 61 H VBG pO2 47 VBG Base Excess -2 09/10/24 09/10/24 09/10/24 00:07 04:40 07:55 ABG pH 7.21 L 7.14 L* 7.23 L ABG pCO2 56 H 60 H 48 D ABG pO2 130 H D 86 D 68 L ABG HCO3 22 21 20 ABG O2 Saturation 99 H 95 93 ABG Base Excess -6 L -9 L -7 L VBG pH VBG pCO2 VBG pO2 VBG Base Excess 09/10/24 09/10/24 09/10/24 15:59 16:40 17:50 ABG pH 7.24 L 7.18 L* 7.35 D ABG pCO2 54 H 69 H D 51 H D ABG pO2 94 D 138 H D 97 D ABG HCO3 23 26 28 H ABG O2 Saturation 97 99 H 99 H ABG Base Excess -5 L -3 2 VBG pH VBG pCO2 VBG pO2 VBG Base Excess Assessment & Plan Assessment and plan (1) Metabolic encephalopathy: Status: Acute Assessment and plan: Secondary to underlying metabolic factors, continue to monitor him closely. Consider doing EEG if needed for prognosis (2) CVA (cerebral vascular accident): Status: Acute Assessment and plan: CT head showed bilateral occipital infarcts with hemorrhagic transformation on the left will hold off on the anticoagulation. (3) Chronic renal failure: Status: Acute Assessment and plan: On dialysis (4) Peritonitis: Status: Acute Assessment and plan: Continue n.p.o., IV antibiotics
--- NOTE | 2024-09-10 23:56 | ESPR_ITS ---
RE: DIANNA RANDALL : 1945 DATE OF SERVICE: 09/10/2024 HISTORY OF PRESENT ILLNESS: Briefly, he is a 78-year-old Romeo speaking gentleman with type 2 diabetes, hypertension, ESRD, on CCPD since 2019, who presented to the emergency room on 09/01/2024 with abdominal pain, fever and was found with peritonitis. The patient's peritoneal fluid grew Acinetobacter baumannii, which is sensitive to cefepime. The patient went into cardiac arrest yesterday and was transferred to ICU. He maintains a full code status. The patient has been very distended since he was transferred to ICU. He is currently intubated and sedated. CURRENT MEDICATIONS: 1. Acetaminophen. 2. Albuterol nebs. 3. Amiodarone drip. 4. Atorvastatin 10 mg daily. 5. Fentanyl drip. 6. Insulin 30 units subcutaneously daily. 7. Midazolam. 8. Zosyn 4.5 g initially. 9. Tamsulosin. 10. Vancomycin 1 g IV x1. 11. Vasopressin drip. 12. Levophed drip. PHYSICAL EXAMINATION: General: He is intubated, sedated, on vasopressor. Vital Signs: Blood pressure of 149/60, heart rate of 86. HEENT: Anicteric sclerae. Normocephalic. Neck: Supple. No JVD. Currently intubated. Chest and Lungs: Symmetric expansion. Clear breath sounds. Cardiac: Without murmur. Abdomen: Distended. Extremities: No edema. LABORATORY DATA: Hemoglobin 10.7, WBC 26,800, platelet count 149,000. Sodium 140, potassium 3.4, chloride 100, CO2 of 24.7, BUN 39, creatinine 5.6, glucose 158, lactic acid 7.7. ASSESSMENT: 1. End-stage renal disease, on continuous cycling peritoneal dialysis. 2. Acinetobacter baumannii peritonitis sensitive to intraperitoneal cefepime. 3. Severe lactic acidosis secondary to sepsis. 4. Type 2 diabetes. 5. Respiratory failure, currently intubated. 6. Hypertension. 7. Anemia. PLAN: I have discussed with his son the need to do hemodialysis while the patient is in ICU. He said that he is aware of how hemodialysis works. Dialysis will be resumed as soon as we have a dialysis catheter in place. The patient at the moment has guarded prognosis. We will continue supportive care while the patient is in the hospital. DT: 22:24:23 TT: 23:39:00 Ref: [id number] - TID: [id number] MTDD
[2024-09-11] VITALS (138 sets, daily range): BP systolic 55–186; BP diastolic 25–75; PULSE 65–98; RESP 28–72; TEMP 36.4–38.4; O2SAT 95–100; BMI 28.3
[2024-09-11] MEDS: AMIODARONE 360 MG IVPB 360 MG/200 ML BAG 16.667 MG IV (00:35)
[2024-09-11] MEDS: Norepinephrine/NS 16mg/250ml 16 MG/250 ML BAG 53.691 MG IV ×2 (02:30→07:10)
[2024-09-11] MEDS: ALBUTEROL/IPRATROPIUM (Duoneb) RT SOL 3 ML NEBU INH ×6 (02:30→22:30)
[2024-09-11 04:51] LABS: Base Excess 3 (-3-3); HCO3 27 mEq/L (20-26); Inspired Oxygen, FIO2 21 %; O2 Saturation 101 % (91-98); PCO2 37 mmHg (32.0-48.0); PO2 144 mmHg (83-108); pH, Arterial 7.47 (7.35-7.45)
[2024-09-11 04:55] LABS: Allen Test Performed/OK; Puncture Site Arterial Line
--- NOTE | 2024-09-11 05:00 | XR_ITS ---
Examination: AP chest single view Technique one AP portable semiupright chest single view Exam date and time: September 11, 2024 0501 hrs. Comparison September 10, 2024 Indications: Hypoxic respiratory failure this week. Findings: Mild enlargement cardiac contour with prominent vascular congestion and perihilar edema Superimposed pneumonia at the lung bases Left internal jugular temporary dialysis catheter tip SVC Right internal jugular central line tip SVC satisfactory position Tracheal tube tip 6.7 cm above joe The orogastric tube is in the stomach, the tip is below the level film Impression: Mild to moderate CHF Significant bilateral pneumonia
[2024-09-11 05:26] LABS: Basophils # (Auto) 0.2 Thou/mm3 (0.0-0.2); Basophils % (Auto) 1 % (0-2.5); Eosinophils # (Auto) 0.4 Thou/mm3 (0.0-0.5); Eosinophils % (Auto) 1 % (0-10); Hematocrit 32.9 % (41.0-53.0); Hemoglobin 11.1 g/dL (13.5-16.0); Immature Granulocytes % (Auto) 8 % (0-0); Immature Granulocytes Auto 2.26 Thou/mm3 (0.00-0.00); Lymphocytes # (Auto) 0.6 Thou/mm3 (1.0-4.8); Lymphocytes % (Auto) 2 % (10-50); Mean Corpuscular HGB Conc 33.7 g/dl (31.0-37.0); Mean Corpuscular Hemoglobin 28.7 pg (25.0-35.0); Mean Corpuscular Volume 85 fL (80-100); Monocytes # (Auto) 0.6 Thou/mm3 (0.0-0.8); Monocytes % (Auto) 2 % (0-12); Neutrophils # (Auto) 25.9 Thou/mm3 (1.8-7.7); Neutrophils % (Auto) 87 % (37-80); Nucleated Red Blood Cell # 0.33 Thou/mm3 (0.00-0.00); Nucleated Red Blood Cell % 1 /100 WBC (0); Platelet Count 141 Thou/mm3 (140-440); RDW Standard Deviation 47.2 fL (35.1-43.9); Red Blood Count 3.87 Miln/mm3 (4.50-5.90); White Blood Count 29.9 Thou/mm3 (3.8-10.6)
[2024-09-11] MEDS: VASOPRESSIN IN NS IVPB 20 UNIT/100 ML BAG 9 UNIT IV ×2 (06:12→18:36)
[2024-09-11 06:38] LABS: INR 1.3 (0.9-1.3); Partial Thromboplastin Time 34.1 Seconds (22.0-36.0); Prothrombin Time 13.6 Seconds (9.0-12.2)
[2024-09-11 06:43] LABS: Alanine Aminotransferase < 7 U/L (10-49); Albumin, Serum 2.6 gm/dL (3.4-4.8); Alkaline Phosphatase 326 U/L (46-116); Anion Gap 15 (7-16); Aspartate Amino Transferase 46 U/L (0-34); BUN/Creatinine Ratio 8 Ratio (12-20); Bilirubin,Total 0.9 mg/dL (0.3-1.2); Blood Urea Nitrogen 47 mg/dL (9-23); Calcium 8.8 mg/dL (8.3-10.6); Calcium (Corrected) 9.9 mg/dL (8.5-10.1); Carbon Dioxide 26.3 mMol/L (20.0-31.0); Chloride 98 mMol/L (98-107); Creatinine (Component) 6.2 mg/dL (0.6-1.3); Estimated Creatinine Clearance 10.4 mL/min (>60); Globulin 2.5 gm/dL (2.3-3.5); Glucose 96 mg/dL (74-106); Osmolality,Calculated 289 (275-295); Sodium 139 mMol/L (136-145); Total Protein 5.1 gm/dL (5.7-8.2); eGFR 9 See Note
[2024-09-11] MEDS: PROPOFOL 1,000 MG IVPB 1,000 MG/100 ML VIAL 7.47 MG IV ×2 (07:11→21:30)
[2024-09-11] MEDS: MIDAZOLAM INJ 1 MG/ML VIAL 2 ML 2 MG IV (07:35)
[2024-09-11 08:04] LABS: Lactate (Lactic Acid) 4.2 mMol/L (0.4-2.0)
[2024-09-11] MEDS: ALBUMIN HUMAN 25% IVPB 25 GM/100 ML BTL IV ×2 (08:20→08:26)
[2024-09-11 08:22] LABS: Base Excess 4 (-3-3); HCO3 28 mEq/L (20-26); Inspired Oxygen, FIO2 100 %; O2 Saturation 101 % (91-98); PCO2 41 mmHg (32.0-48.0); PO2 237 mmHg (83-108); pH, Arterial 7.44 (7.35-7.45)
[2024-09-11 08:24] LABS: Allen Test Performed/OK; Puncture Site Arterial Line
[2024-09-11 08:35] LABS: Vancomycin,Random 18.1 mcg/mL
--- NOTE | 2024-09-11 08:40 | PC.NURSE ---
BP drop to 60's few minutes after starting HD. ICU team at bedside. 1st albumin 25gms iv bolus started as ordered. UF off. Levo was increase by Dat RN will monitor
[2024-09-11] MEDS: ATORVASTATIN CALCIUM 10 MG TABLET PO (08:42)
[2024-09-11] MEDS: PANTOPRAZOLE INJ 40 MG VIAL IVP (08:42)
--- NOTE | 2024-09-11 08:42 | PC.NURSE ---
BP improved. Per Dr. Lemus give another albumin 25 gms iv bolus and no UF. UF set at 500 ml which includes the 2 albumin and the NS prime/rinse back. BFR set at 250, DFR at 500. Will monitor
[2024-09-11 08:47] LABS: Troponin I 2.423 ng/mL (0.0-0.045)
--- NOTE | 2024-09-11 10:20 | ESPR_ITS ---
<Statement entered by Adalberto Lemus MD - 09/12/24 10:34> TOTAL CC TIME: 45 MIN I saw and evaluated the patient. I reviewed the resident?s note and agree with findings and plan as documented in the resident?s note. Upon my evaluation, this patient had a high probability of imminent or life- threatening deterioration due to multisystem organ failure, septic shock, hemorrhagic CVA which required my direct attention, intervention, and personal management. This time is exclusive of time spent on procedures, which are documented separately if performed. Seizures developed overnight and the patient was appropriately treated. Keppra was added. Too unstable hemodynamically to transfer for CT head. Patient was on high vasopressors this morning during hemodialysis, after 50 g of IV albumin pressures improved. Repeat echo identifies worsening heart function likely as a result of his second cardiac arrest. Overall prognosis is quite poor given liver disease, renal failure, septic shock with hypoxic respiratory failure and hemorrhagic CVA. Goals of care were discussed with the family and they are leaning towards comfort care. Further discussions will take place after the patient's brother arrives from [place]. 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 Collado in [place]), and hyperlipidemia who presented to [place] with two days of fever, chills, and non-bloody diarrhea on 09/01. Associated generalized abdominal pain that was sudden onset and cramping in nature. No hematemesis, hematochezia or melena. In ED, patient afebrile and WBC wnl, but pleural fluid analysis from PD catheter showed > 14,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 Admitted for management of PD-catheter associated peritonitis and started on cefazolin and cefepime administered via PD catheter. Sample Driller (Dr. Sinclair) was consulted Peritonitis resolved, however, concerns for SBO after noted to have significant distention on exam so CT A/P showed significant fluid-distended small bowel loops. Gastrografin small bowel series was ordered. After Gastrografin was given, patient became acutely nauseous and an episode of emesis. SpO2 dropped and RUBBER BELT SPLICER was called at 1540 on 09/09. En route, nick ramírez was called as patient became unresponsive and was without a pulse. Chest compressions initiated and monitoring engineer showed PEA. Had 3 rounds of epinephrine, 2 ampules of HCO3, 1 ampule of CaCl and VF was seen on monitor. Received 1 shock of 150 J and ROSC was obtained. Intubated by Dr. Hernandez and subsequently upgraded to ICU for mechanical ventilation with pressors. 09/09: PEA cardiac arrest and was subsequently intubated. Post ABG showed pH of 7.14/60/86. Placed right IJ CVC and right fem arterial line. 09/10: Continues to be sedated on propofol and fentanyl. Supported on high amounts of pressors - 1 mcg/kg/min of levophed and 0.03 mcg/min of vasopressin. Serial ABGs starting at 0440 showed some improvement in pH from 7.14 to 7.24, pCO2 from 60 to 54, pCO2 from [address] A/P showed extensive bibasilar pneumonia, mild free fluid in the abdomen, and mild small bowel ileus - no signs of surgical abdomen. Troponins uptrending since code blue on 09/09 and repeat EKG showed no significant ST changes. CT head obtained showed acute/subacute infarcts and bilateral occipital lobes with mild hemorrhagic transformation. Left IJ tri-flow placed for hemodialysis, however after 5 minutes of dialysis CODE DESTINY was activated that 1629. Please see event note for details. Family updated on clinical condition and prognosis. Code status changed to DNR in the PM. 09/11: Continues to be sedated on propofol and fentanyl. Supported on high amounts of pressors - 0.68 mcg/kg/min of levophed and 0.03 mcg/min of vasopressin. Dialysis this AM. New onset focal seizures with the head/Continues to be in critical state. Family updated on the condition and prognosis. Exam Vital Signs Temp Pulse Resp BP Pulse Ox O2 Del Method FiO2 100.1 F 70 30 H 152/63 H 99 Mechanical Ventilation 90 09/11/24 07:55 09/11/24 10:15 09/11/24 07:55 09/11/24 10:15 09/11/24 10:13 09/11/24 04:00 09/11/24 10:13 Narrative Exam General: sedated and mechanically ventilated HEENT: NC/AT, mucous membranes moist, bilateral sclera anicteric Cardiovascular: tachycardic, S1/S2 present, no murmurs appreciated Pulmonary: clear to auscultation bilaterally Abdominal: distended, soft Musculoskeletal: normal ROM, no peripheral edema Skin: warm and dry, intact, no rashes Neuro: sedated, GCS 3T Objective Labs 09/11/24 04:15 09/11/24 04:15 Labs: Laboratory Results - last 24 hr 09/10/24 09/10/24 09/10/24 13:26 15:59 16:40 WBC 26.8 H D RBC 3.66 L Hgb 10.5 L Hct 31.7 L MCV 87 MCH 28.7 MCHC 33.1 RDW Std Deviation 48.9 H Plt Count 149 D Neut % (Auto) 82 H Lymph % (Auto) 9 L [place] % (Auto) 1 Eos % (Auto) 1 Baso % (Auto) 1 Neut # (Auto) 21.9 H Lymph # (Auto) 2.5 [place] # (Auto) 0.3 Eos # (Auto) 0.4 Baso # (Auto) 0.1 Immature Gran # (Auto) 1.55 H Absolute Nucleated RBC 0.78 H Immature Gran % 6 H Nucleated RBC % 3 H PT INR APTT Puncture Site Arterial Line Arterial Line ABG pH 7.24 L 7.18 L* ABG pCO2 54 H 69 H D ABG pO2 94 D 138 H D ABG HCO3 23 26 ABG O2 Saturation 97 99 H ABG Base Excess -5 L -3 FiO2 100 100 Sodium 140 Potassium 3.4 Chloride 100 Carbon Dioxide 24.7 Anion Gap 15 BUN 39 H Creatinine 5.6 H* D Estim Creat Clear Calc 11.5 L eGFR 10 L* BUN/Creatinine Ratio 7 L Glucose 158 H D Calculated Osmolality 291 Lactic Acid 7.0 H* Calcium 10.7 H Corrected Calcium 11.7 H Magnesium 2.6 Total Bilirubin 0.4 AST 42 H ALT < 7 L Alkaline Phosphatase 254 H D Troponin I 1.779 H* D 2.094 H* D Total Protein 5.2 L Albumin 2.8 L Globulin 2.4 Albumin/Globulin Ratio 1.2 Random Vancomycin Hepatitis A IgM Ab Non Reactive Hep Bs Antigen Non Reactive Hep Bs Antibody NonReact(Not Immune) L Hep B Core IgM Ab Non Reactive Hepatitis C Antibody Non Reactive 09/10/24 09/10/24 09/10/24 17:02 17:50 18:34 WBC RBC Hgb Hct MCV MCH MCHC RDW Std Deviation Plt Count Neut % (Auto) Lymph % (Auto) [place] % (Auto) Eos % (Auto) Baso % (Auto) Neut # (Auto) Lymph # (Auto) [place] # (Auto) Eos # (Auto) Baso # (Auto) Immature Gran # (Auto) Absolute Nucleated RBC Immature Gran % Nucleated RBC % PT INR APTT Puncture Site Arterial Line ABG pH 7.35 D ABG pCO2 51 H D ABG pO2 97 D ABG HCO3 28 H ABG O2 Saturation 99 H ABG Base Excess 2 FiO2 100 Sodium Potassium Chloride Carbon Dioxide Anion Gap BUN Creatinine Estim Creat Clear Calc eGFR BUN/Creatinine Ratio Glucose Calculated Osmolality Lactic Acid 7.7 H* 7.1 H* Calcium Corrected Calcium Magnesium Total Bilirubin AST ALT Alkaline Phosphatase Troponin I Total Protein Albumin Globulin Albumin/Globulin Ratio Random Vancomycin Hepatitis A IgM Ab Hep Bs Antigen Hep Bs Antibody Hep B Core IgM Ab Hepatitis C Antibody 09/10/24 09/11/24 09/11/24 22:44 04:15 04:17 WBC 29.9 H RBC 3.87 L Hgb 11.1 L Hct 32.9 L MCV 85 MCH 28.7 MCHC 33.7 RDW Std Deviation 47.2 H Plt Count 141 Neut % (Auto) 87 H Lymph % (Auto) 2 L [place] % (Auto) 2 Eos % (Auto) 1 Baso % (Auto) 1 Neut # (Auto) 25.9 H Lymph # (Auto) 0.6 L [place] # (Auto) 0.6 Eos # (Auto) 0.4 Baso # (Auto) 0.2 Immature Gran # (Auto) 2.26 H Absolute Nucleated RBC 0.33 H Immature Gran % 8 H Nucleated RBC % 1 H PT 13.6 H INR 1.3 APTT 34.1 Puncture Site Arterial Line ABG pH 7.47 H D ABG pCO2 37 D ABG pO2 144 H D ABG HCO3 27 H ABG O2 Saturation 101 H ABG Base Excess 3 FiO2 21 Sodium 139 Potassium 4.0 D Chloride 98 Carbon Dioxide 26.3 Anion Gap 15 BUN 47 H Creatinine 6.2 H* D Estim Creat Clear Calc 10.4 L eGFR 9 L* BUN/Creatinine Ratio 8 L Glucose 96 D Calculated Osmolality 289 Lactic Acid 5.4 H* Calcium 8.8 D Corrected Calcium 9.9 D Magnesium Total Bilirubin 0.9 D AST 46 H ALT < 7 L Alkaline Phosphatase 326 H D Troponin I 2.190 H* Total Protein 5.1 L Albumin 2.6 L Globulin 2.5 Albumin/Globulin Ratio 1.0 L Random Vancomycin 18.1 Hepatitis A IgM Ab Hep Bs Antigen Hep Bs Antibody Hep B Core IgM Ab Hepatitis C Antibody 09/11/24 09/11/24 09/11/24 07:10 07:20 08:10 WBC RBC Hgb Hct MCV MCH MCHC RDW Std Deviation Plt Count Neut % (Auto) Lymph % (Auto) [place] % (Auto) Eos % (Auto) Baso % (Auto) Neut # (Auto) Lymph # (Auto) [place] # (Auto) Eos # (Auto) Baso # (Auto) Immature Gran # (Auto) Absolute Nucleated RBC Immature Gran % Nucleated RBC % PT INR APTT Puncture Site Arterial Line ABG pH 7.44 ABG pCO2 41 ABG pO2 237 H D ABG HCO3 28 H ABG O2 Saturation 101 H ABG Base Excess 4 H FiO2 100 Sodium Potassium Chloride Carbon Dioxide Anion Gap BUN Creatinine Estim Creat Clear Calc eGFR BUN/Creatinine Ratio Glucose Calculated Osmolality Lactic Acid 4.2 H* Calcium Corrected Calcium Magnesium Total Bilirubin AST ALT Alkaline Phosphatase Troponin I 2.423 H* D Total Protein Albumin Globulin Albumin/Globulin Ratio Random Vancomycin Hepatitis A IgM Ab Hep Bs Antigen Hep Bs Antibody Hep B Core IgM Ab Hepatitis C Antibody ABG Interpretation ABG results: 09/07/24 09/09/24 09/09/24 13:21 16:34 19:07 ABG pH 7.35 7.22 L D 7.28 L ABG pCO2 47 62 H D 54 H ABG pO2 79 L 301 H D 104 D ABG HCO3 26 25 25 ABG O2 Saturation 97 101 H 98 ABG Base Excess 0 -3 -2 VBG pH 7.25 L VBG pCO2 61 H VBG pO2 47 VBG Base Excess -2 09/10/24 09/10/24 09/10/24 00:07 04:40 07:55 ABG pH 7.21 L 7.14 L* 7.23 L ABG pCO2 56 H 60 H 48 D ABG pO2 130 H D 86 D 68 L ABG HCO3 22 21 20 ABG O2 Saturation 99 H 95 93 ABG Base Excess -6 L -9 L -7 L VBG pH VBG pCO2 VBG pO2 VBG Base Excess 09/10/24 09/10/24 09/10/24 15:59 16:40 17:50 ABG pH 7.24 L 7.18 L* 7.35 D ABG pCO2 54 H 69 H D 51 H D ABG pO2 94 D 138 H D 97 D ABG HCO3 23 26 28 H ABG O2 Saturation 97 99 H 99 H ABG Base Excess -5 L -3 2 VBG pH VBG pCO2 VBG pO2 VBG Base Excess 09/11/24 09/11/24 04:17 08:10 ABG pH 7.47 H D 7.44 ABG pCO2 37 D 41 ABG pO2 144 H D 237 H D ABG HCO3 27 H 28 H ABG O2 Saturation 101 H 101 H ABG Base Excess 3 4 H VBG pH VBG pCO2 VBG pO2 VBG Base Excess Quality Measures Quality Measures VTE prophylaxis Advance care planning discussed with:: child (Patient continues to remain in critical condition in the ICU. Patient has multiorgan dysfunction. Has poor prognosis) Assessment & Plan Assessment Current Active Medications: Generic Name Dose Route Start Last Admin Trade Name Freq PRN Reason Stop Dose Admin Acetaminophen 650 mg 09/01/24 17:55 09/08/24 21:33 Acetaminophen 325 Mg Tablet PO 10/01/24 17:54 650 mg Q6H PRN Administration Fever >100.3 or pain Protocol Albuterol/Ipratropium 3 ml 09/10/24 02:00 09/11/24 10:16 Albuterol/Ipratropium (Duoneb) Rt Jessenia 3 Ml Nebu INH 10/10/24 01:59 3 ml Q4HR BRIANA Administration Atorvastatin Calcium 10 mg 09/02/24 09:00 09/11/24 08:42 Atorvastatin Calcium 10 Mg Tablet PO 10/02/24 08:59 10 mg QDAY BRIANA Administration Dextrose 25 ml 09/05/24 04:34 Dextrose 50%-Water Inj 50 Ml Syringe IV 10/05/24 04:33 Q15MIN PRN BG 50-70 responsive npo pt Dextrose 50 ml 09/09/24 08:49 09/09/24 22:16 Dextrose 50%-Water Inj 50 Ml Syringe IV 10/09/24 08:48 50 ml Q15MIN PRN Administration BG <50 OR BG <70 & pt unresponsive Glucagon 1 mg 09/09/24 08:49 Glucagon Inj 1 Mg Vial IM Q15MIN PRN BG <70, and no IV access Guaifenesin 200 mg 09/05/24 21:00 09/08/24 09:36 Guaifenesin Syrup 200 Mg/10 Ml Udc PO 10/05/24 20:59 200 mg BID BRIANA Administration Protocol Heparin Sodium (Porcine) 3,000 unit 09/10/24 16:54 Heparin Sod Inj 1000 Unit/Ml Vial 10 Ml INDWELLCAT 09/24/24 13:00 PRN PRN DIALYSIS Norepinephrine Bitartrate 16 mg in 250 mls @ 3.891 mls/hr 09/09/24 16:08 09/11/24 09:00 Levophed In Ns 16mg/250ml IV 10/09/24 16:07 0.8 mcg/kg/min .Q24H PRN 62.25 mls/hr PER PROTOCOL Titration Protocol 0.05 MCG/KG/MIN Piperacillin/Tazobactam/Dextrose 50 mls @ 12.5 mls/hr 09/10/24 09:00 09/10/24 20:49 Zosyn IV 09/16/24 16:37 12.5 mls/hr Q12HR BRIANA Administration Propofol 1,000 mg in 100 mls @ 2.49 mls/hr 09/09/24 16:51 09/11/24 09:00 Diprivan Ivpb IV 10/09/24 16:09 15 mcg/kg/min .Q24H PRN 7.47 mls/hr PER PROTOCOL Titration Protocol 5 MCG/KG/MIN Fentanyl Citrate 2,500 mcg in 250 mls @ 2.5 mls/hr 09/09/24 16:51 09/11/24 09:00 Sublimaze Inj 2,500 Mcg/250 Ml Bag IV 09/14/24 16:10 175 mcg/hr .Q24H PRN 17.5 mls/hr PER PROTOCOL Titration Protocol 25 MCG/HR Vasopressin/Sodium Chloride 20 unit in 100 mls @ 9 mls/hr 09/09/24 22:08 09/11/24 06:12 Vasostrict/Ns Ivpb IV 10/09/24 22:07 0.03 unit/min .Q11H7M PRN 9 mls/hr PER PROTOCOL Administration Protocol 0.03 UNIT/MIN Amiodarone HCl/Dextrose 360 mg in 200 mls @ 16.667 mls/hr 09/10/24 12:45 09/11/24 00:35 Nexterone Ivpb IV 10/10/24 12:44 16.667 mls/hr .Q12H BRIANA Administration Protocol Albumin Human 25 gm in 100 mls @ 100 mls/hr 09/11/24 09:20 Albuminar-25 Ivpb IV PRN PRN DIALYSIS Insulin Glargine 30 unit 09/08/24 09:30 09/09/24 09:11 Insulin Glargine (Lantus) 5 Unit/0.05 Ml (Per 5 Units) SC 10/08/24 09:29 30 unit QDAY BRIANA Administration Insulin Human Lispro 5 unit 09/08/24 17:30 09/09/24 18:42 Insulin Lispro (Admelog) 1 Unit/0.01 Ml Unit SC 10/08/24 17:29 Not Given TIDWM BRIANA Insulin Human Lispro 0 unit 09/10/24 00:00 09/11/24 08:43 Insulin Lispro (Admelog) 1 Unit/0.01 Ml Unit SC 10/10/24 00:00 Not Given Q6HR BRIANA Protocol Midodrine 10 mg 09/07/24 17:48 Midodrine 5 Mg Tablet PO 10/03/24 15:14 TID PRN MAP < 65 Ondansetron HCl 4 mg 09/01/24 17:59 09/09/24 12:56 Ondansetron Inj 2 Mg/Ml Inj 2 Ml IV 10/01/24 17:58 4 mg Q6H PRN Administration NAUSEA OR VOMITING Protocol Pantoprazole Sodium 40 mg 09/01/24 18:00 09/11/24 08:42 Pantoprazole Inj 40 Mg Vial IVP 10/01/24 17:59 40 mg QDAY BRIANA Administration Pharmacy Consult 1 each 09/10/24 17:15 Vancomycin Pharmacy To Dose 1 Each Each IV 10/10/24 17:14 QDAY PRN PROTOCOL Polyethylene Glycol 17 gm 09/05/24 09:45 09/09/24 09:10 Polyethylene Glycol 17 Gm Packet PO 10/05/24 09:44 17 gm QDAY BRIANA Administration Sennosides 1 tab 09/04/24 16:15 09/09/24 09:10 Senna/Docusate Sod 1 Tab Tablet PO 10/04/24 16:14 1 tab QDAY BRIANA Administration Protocol Sodium Chloride 3 ml 09/09/24 23:30 Sodium Chloride Rt Jessenia 0.9% 3 Ml Nebu INH 10/09/24 23:29 PRN PRN SOLN Tamsulosin HCl 0.4 mg 09/02/24 09:00 09/08/24 09:36 Tamsulosin Hcl 0.4 Mg Capsule PO 10/02/24 08:59 0.4 mg QDAY BRIANA Administration Plan Colby Beard is a 78-year-old male with a past medical history of hypertension, 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 Collado in [place]), and hyperlipidemia who was admitted for management of PD-catheter associated peritonitis. On 09/09, nick ramírez called for PEA and patient intubated and upgraded to ICU. Neurological #Sedated on mechanical ventilation - Continue fentanyl and propofol drips, RASS -4 #At risk for acute anoxic brain injury 08/29 to cardiac arrest Difficult to assess brain function since the patient is on sedation drips - may get EEG for prognosis - avoid hyperthemia after cardiac arrest, targeted temperature management of 32- 36 Celsius #New-onset seizures - neurology following - Keppra 500 mg initiated, renally dosed - versed PRN for seizures #Acute ischemic stroke with hemorrhagic conversion CT head 09/10 showed acute subacute bilateral infarcts in the occipital lobes with mild hemorrhagic conversion - maintain SBP < 180s - avoid blood thinners Cardiovascular #Pulseless electrical activity, s/p resuscitation on 09/09 and 09/10 #Ventricular fibrillation, s/p cardioversion - avoid hyperthermia #Septic shock, requiring pressors TTE 09/10 showed LVEF 55% with no significant valvular dysfunction, mild AR, mild MR - Continue to be on high amounts of pressors - Levophed 0.69 and 0.03 vasopressin - responsive 400cc of LR yesterday after the code and albumin today #Paroxysmal atrial fibrillation, paroxysmal - transitioned from amiodarone drip to po amiodarone today - HOLDING anticoagulation due to hemorrhagic stroke #demand ischemia EKG 09/09 and 09/[address] elevations and ST depressions TTE 09/10 showed LVEF 55% with no significant valvular dysfunction - trend troponins Pulmonary #Mechanically ventilated after cardiac arrest #Intubated, Day 3 Intubated following cardiac arrest 09/09 - lung protective strategy as tolerated, plateau pressures < 40 - ABG PRN for vent changes - CXR PRN - duonebs - vent settings today: VCAC 400/28/5/90%, plateau pressures 12 #? Aspiration pneumonitis Witnessed aspiration 09/09 before code blue with right-sided infiltrated on CXR CT A/P 09/09 - significant bibasilar pneumonia - CXR today shows worsening bilateral PNA - on Zosyn (09/09-today) and vancomycin (09/10-today) - pending sputum cultures Gastrointestinal #? Ileus vs small bowel obstruction CT A/P on 09/08 - significant fluid-distended small bowel loops, suspicious for SBO. Underwent first of small bowel series when patient became nauseous and had episode of emesis and subsequent code blue. CT A/P on 09/10 - extensive bibasilar pneumonia, mild small bowel ileus, mild free fluid in the abdomen - no signs of SBO. - OG tube on LIT #Spontaneous bacterial peritonitis, resolved Peritoneal fluid analysis improved, with PMNs downtrendin,000 -> 9000 -> 500 Peritoneal fluid culture from 09/01 grew Acinetobacter baumannii that was sensitive to cefepime. Cleared by nephrology for discharge and advised to follow-up outpatient with Dr. Collado. - Dr. Sinclair consulted and following - on vanc and zosyn #GI prophylaxis - on IV protonix Renal #Metabolic acidosis 2/2 lactic acidosis - Continue ventilator settings as above - trend lactate #ESRD on peritoneal dialysis Outpatient Sample Driller - hyperbaric nurse (Dr. Sinclair) following - dialysis as tolerated, dialysis this AM, dialysate ultrafiltration to balance the IVFs from the drips Endocrine #Type 2 diabetes mellitus, insulin-dependent A1c 9.2%. Noted to have difficult to control blood sugars and recent hypoglycemic episodes due to decreased PO intake. - HOLD lantus at this time since patient is at high risk for hypoglycemia - SSI q6hr Heme #DVT prophylaxis - NONE due to ischemic stroke with hemorrhagic conversion Infectious disease #Leukocytosis #Septic shock, on pressors - See pulmonary and GI above Hospital management: Disposition: critically ill in the ICU Sedation: propofol and fentanyl Pressor: levophed and vasopressin Fluids: none Diet: NPO Lines: right IJ 7fr central line 09/09, right femoral arterial line 09/09, left IJ tri-flow 13.5fr 09/10, OG tube, PIVs, ortega DVT prophylaxis: NONE due to ischemic stroke with hemorrhagic conversion GI prophylaxis: IV Protonix CODE STATUS: DNR Plan discussed with the shipper and receiving Dr. Lemus. Maci Sanchez, PGY4 executive vice president and chief operating officer
[2024-09-11 10:53] LABS: Reflex Lactate? Y
[2024-09-11] MEDS: HEPARIN SOD INJ 1000 UNIT/ML VIAL 10 ML 3000 UNIT INDWELLCAT (11:01)
[2024-09-11] MEDS: Norepinephrine/NS 16mg/250ml 16 MG/250 ML BAG 54.469 MG IV (11:20)
[2024-09-11] MEDS: fentaNYL 2,500 MCG/250 ML BAG 2,500 MCG/250 ML BAG 17.5 MCG IV (12:00)
[2024-09-11 12:09] LABS: Lactic Acid, 3 HR 2.5 mMol/L (0.4-2.0)
[2024-09-11] MEDS: PIPER/TAZO 3.375 GM 50 ML IV ×2 (12:18→21:00)
[2024-09-11] MEDS: levETIRAcetam INJ 100 MG/ML VIAL 5ML 500 MG IVP (12:19)
[2024-09-11] MEDS: AMIODARONE HCL 200 MG TABLET PO ×2 (12:32→20:59)
[2024-09-11 13:16] LABS: Base Excess 6 (-3-3); HCO3 32 mEq/L (20-26); Inspired Oxygen, FIO2 90 %; O2 Saturation 99 % (91-98); PCO2 54 mmHg (32.0-48.0); PO2 105 mmHg (83-108); pH, Arterial 7.38 (7.35-7.45)
[2024-09-11 13:19] LABS: Allen Test Performed/OK; Puncture Site Arterial Line
[2024-09-11 13:44] LABS: Troponin I 2.192 ng/mL (0.0-0.045)
[2024-09-11 14:20] LABS: Lactate (Lactic Acid) 2.3 mMol/L (0.4-2.0)
[2024-09-11] MEDS: Norepinephrine/NS 16mg/250ml 16 MG/250 ML BAG 46.688 MG IV (16:14)
[2024-09-11] MEDS: ACETAMINOPHEN 325 MG TABLET 650 MG PO (16:28)
[2024-09-11 17:19] LABS: Reflex Lactate? Y
[2024-09-11] MEDS: DEXTROSE 50%-WATER INJ 50 ML SYRINGE 25 ML IV (18:00)
[2024-09-11 18:54] LABS: Lactic Acid, 3 HR 2.5 mMol/L (0.4-2.0)
[2024-09-11 20:01] LABS: Lactate (Lactic Acid) 2.5 mMol/L (0.4-2.0)
[2024-09-11 20:13] LABS: Troponin I 1.777 ng/mL (0.0-0.045)
[2024-09-11] MEDS: Norepinephrine/NS 16mg/250ml 16 MG/250 ML BAG 37.35 MG IV (21:34)
[2024-09-11 22:57] LABS: Reflex Lactate? Y
[2024-09-11 23:34] LABS: Lactic Acid, 3 HR 2.4 mMol/L (0.4-2.0)
[2024-09-12] VITALS (12 sets, daily range): BP systolic 130–135; BP diastolic 53–64; PULSE 60–79; RESP 28–29; O2SAT 94–100
[2024-09-12] MEDS: fentaNYL 2,500 MCG/250 ML BAG 2,500 MCG/250 ML BAG 17.5 MCG IV ×2 (01:15→14:38)
[2024-09-12] MEDS: ALBUTEROL/IPRATROPIUM (Duoneb) RT SOL 3 ML NEBU INH ×2 (03:00→06:45)
[2024-09-12] MEDS: DEXTROSE 50%-WATER INJ 50 ML SYRINGE 25 ML IV (03:39)
[2024-09-12 04:05] LABS: Base Excess 3 (-3-3); HCO3 30 mEq/L (20-26); O2 Saturation 99 % (91-98); PCO2 57 mmHg (32.0-48.0); PO2 105 mmHg (83-108); pH, Arterial 7.33 (7.35-7.45)
[2024-09-12 04:08] LABS: Allen Test Not Performed; Puncture Site Arterial Line
[2024-09-12 04:09] LABS: Inspired Oxygen, FIO2 90 %
[2024-09-12] MEDS: Norepinephrine/NS 16mg/250ml 16 MG/250 ML BAG 34.238 MG IV ×2 (04:40→12:00)
[2024-09-12 04:51] LABS: Lactate (Lactic Acid) 2.8 mMol/L (0.4-2.0)
[2024-09-12 05:08] LABS: Basophils # (Auto) 0.1 Thou/mm3 (0.0-0.2); Basophils % (Auto) 0 % (0-2.5); Eosinophils # (Auto) 0.7 Thou/mm3 (0.0-0.5); Eosinophils % (Auto) 3 % (0-10); Hematocrit 27.9 % (41.0-53.0); Hemoglobin 9.1 g/dL (13.5-16.0); Immature Granulocytes % (Auto) 0 % (0-0); Lymphocytes # (Auto) 0.5 Thou/mm3 (1.0-4.8); Lymphocytes % (Auto) 2 % (10-50); Mean Corpuscular HGB Conc 32.6 g/dl (31.0-37.0); Mean Corpuscular Hemoglobin 28.8 pg (25.0-35.0); Mean Corpuscular Volume 88 fL (80-100); Monocytes # (Auto) 0.4 Thou/mm3 (0.0-0.8); Monocytes % (Auto) 2 % (0-12); Neutrophils # (Auto) 23.4 Thou/mm3 (1.8-7.7); Neutrophils % (Auto) 93 % (37-80); Nucleated Red Blood Cell # 0.13 Thou/mm3 (0.00-0.00); Nucleated Red Blood Cell % 1 /100 WBC (0); Platelet Count 98 Thou/mm3 (140-440); RDW Standard Deviation 51.7 fL (35.1-43.9); Red Blood Count 3.16 Miln/mm3 (4.50-5.90); White Blood Count 25.2 Thou/mm3 (3.8-10.6)
[2024-09-12 05:27] LABS: Albumin, Serum 2.8 gm/dL (3.4-4.8); Albumin/Globulin Ratio 1.3 (1.2-2.2); Alkaline Phosphatase 351 U/L (46-116); Anion Gap 10 (7-16); Aspartate Amino Transferase 44 U/L (0-34); BUN/Creatinine Ratio 8 Ratio (12-20); Bilirubin,Total 1.6 mg/dL (0.3-1.2); Blood Urea Nitrogen 34 mg/dL (9-23); Calcium 8.5 mg/dL (8.3-10.6); Calcium (Corrected) 9.5 mg/dL (8.5-10.1); Carbon Dioxide 28.4 mMol/L (20.0-31.0); Chloride 101 mMol/L (98-107); Creatinine (Component) 4.3 mg/dL (0.6-1.3); Globulin 2.2 gm/dL (2.3-3.5); Glucose 103 mg/dL (74-106); Osmolality,Calculated 285 (275-295); Potassium 4.3 mMol/L (3.4-5.1); Sodium 139 mMol/L (136-145); Vancomycin,Random 7.8 mcg/mL; eGFR 13 See Note
[2024-09-12 05:28] LABS: Alanine Aminotransferase < 7 U/L (10-49)
[2024-09-12 07:47] LABS: Reflex Lactate? Y
[2024-09-12 08:06] LABS: Lactic Acid, 3 HR 2.5 mMol/L (0.4-2.0)
[2024-09-12] MEDS: PIPER/TAZO 3.375 GM 50 ML IV (08:55)
[2024-09-12] MEDS: AMIODARONE HCL 200 MG TABLET PO (08:56)
[2024-09-12] MEDS: ATORVASTATIN CALCIUM 10 MG TABLET PO (08:56)
[2024-09-12] MEDS: levETIRAcetam INJ 100 MG/ML VIAL 5ML 500 MG IVP (08:56)
[2024-09-12] MEDS: PANTOPRAZOLE INJ 40 MG VIAL IVP (08:56)
[2024-09-12] MEDS: PROPOFOL 1,000 MG IVPB 1,000 MG/100 ML VIAL 7.47 MG IV (09:19)
--- NOTE | 2024-09-12 09:59 | XR_ITS ---
Examination: CT brain head without contrast. 2-D sagittal coronal reconstructions Date and time of exam:June 13, 2025 1126 hrs. Comparison September 10, 2024 Indications: Acute infarcts both occipital lobes with mild hemorrhagic transformation on CT brain scan June 10, 2025 CTDI: vol (mGy):51.6 DLP: (mGycm):1041 Technique: Multiple CT axial sections of the brain have been obtained, 5 mm slice thickness. Contrast has not been administered. 2-D sagittal, coronal reconstructions have been obtained Low dose protocols were performed. One or more of the following dose reduction techniques were used; automated exposure control, adjustment of the mA and/or KV according to patient size, use of iterative reconstruction technique. Findings: Again noted acute infarcts in both occipital lobes with mild hemorrhagic transformation No new infarcts No new areas of hemorrhage density No mass effect or midline shift upon the frontal horns Impression: Stable acute infarcts both occipital posterior parietal lobes with mild hemorrhagic transformation No interval areas of hemorrhage
[2024-09-12] MEDS: VANCOMYCIN/NS 500 MG IVPB 100 ML 120 MG IV (10:30)
--- NOTE | 2024-09-12 11:37 | ESPR_ITS ---
<Statement entered by Adalberto Lemus MD - 09/13/24 13:52> TOTAL CC TIME: 45 MIN I saw and evaluated the patient. I reviewed the resident?s note and agree with findings and plan as documented in the resident?s note. Upon my evaluation, this patient had a high probability of imminent or life- threatening deterioration due to multisystem organ failure septic shock which required my direct attention, intervention, and personal management. This time is exclusive of time spent on procedures, which are documented separately if performed. Repeat head CT did not identify expanding hemorrhagic CVA. No new seizures. Patient remains critically ill on high-dose pressors with multisystem organ failure. Further goals of care discussion to be held with family. 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 Collado in [place]), and hyperlipidemia who presented to [place] with two days of fever, chills, and non-bloody diarrhea on 09/01. Associated generalized abdominal pain that was sudden onset and cramping in nature. No hematemesis, hematochezia or melena. In ED, patient afebrile and WBC wnl, but pleural fluid analysis from PD catheter showed > 14,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 Admitted for management of PD-catheter associated peritonitis and started on cefazolin and cefepime administered via PD catheter. Core Checker (Dr. Sinclair) was consulted Peritonitis resolved, however, concerns for SBO after noted to have significant distention on exam so CT A/P showed significant fluid-distended small bowel loops. Gastrografin small bowel series was ordered. After Gastrografin was given, patient became acutely nauseous and an episode of emesis. SpO2 dropped and UPHOLSTERY CLEANER was called at 1540 on 09/09. En route, code blue was called as patient became unresponsive and was without a pulse. Chest compressions initiated and stone layout marker showed PEA. Had 3 rounds of epinephrine, 2 ampules of HCO3, 1 ampule of CaCl and VF was seen on monitor. Received 1 shock of 150 J and ROSC was obtained. Intubated by Dr. Hernandez and subsequently upgraded to ICU for mechanical ventilation with pressors. 09/09: PEA cardiac arrest and was subsequently intubated. Post ABG showed pH of 7.14/60/86. Placed right IJ CVC and right fem arterial line. 09/10: Continues to be sedated on propofol and fentanyl. Supported on high amounts of pressors - 1 mcg/kg/min of levophed and 0.03 mcg/min of vasopressin. Serial ABGs starting at 0440 showed some improvement in pH from 7.14 to 7.24, pCO2 from 60 to 54, pCO2 from [address] A/P showed extensive bibasilar pneumonia, mild free fluid in the abdomen, and mild small bowel ileus - no signs of surgical abdomen. Troponins uptrending since code blue on 09/09 and repeat EKG showed no significant ST changes. CT head obtained showed acute/subacute infarcts and bilateral occipital lobes with mild hemorrhagic transformation. Left IJ tri-flow placed for hemodialysis, however after 5 minutes of dialysis CODE BLUE was activated that 1629. Please see event note for details. Family updated on clinical condition and prognosis. Code status changed to DNR in the PM. 09/11: Continues to be sedated on propofol and fentanyl. Supported on high amounts of pressors - 0.68 mcg/kg/min of levophed and 0.03 mcg/min of vasopressin. Dialysis this AM. New onset focal seizures with and continues to be in critical state. Family updated on the condition and prognosis. 09/12: Seen and examined in ICU. Continues to be sedated, mechanically ventilated, and on levophed and vasopressin. Repeat CT head obtained this AM and showed stable infarcts of occipital lobe with hemorrhagic conversion. Family at bedside and patient decision was made to transition to comfort care. Edit: Patient was pronounced at 3:57 PM. Please see discharge summary and pronouncement note for details. Exam Vital Signs Temp Pulse Resp BP Pulse Ox O2 Del Method FiO2 99.6 F 71 28 H 135/53 H 99 Mechanical Ventilation 90 09/11/24 20:00 09/12/24 08:56 09/12/24 07:00 09/12/24 08:56 09/12/24 07:00 09/11/24 20:00 09/12/24 07:00 Narrative Exam General: sedated and mechanically ventilated HEENT: NC/AT, mucous membranes moist, bilateral sclera anicteric Cardiovascular: tachycardic, S1/S2 present, no murmurs appreciated Pulmonary: clear to auscultation bilaterally Abdominal: distended, soft Musculoskeletal: normal ROM, no peripheral edema Skin: warm and dry, intact, no rashes Neuro: sedated, GCS 3T Objective Labs 09/12/24 04:30 09/12/24 04:30 Labs: Laboratory Results - last 24 hr 09/11/24 09/11/24 09/11/24 11:35 12:58 13:00 WBC RBC Hgb Hct MCV MCH MCHC RDW Std Deviation Plt Count Neut % (Auto) Lymph % (Auto) [place] % (Auto) Eos % (Auto) Baso % (Auto) Neut # (Auto) Lymph # (Auto) [place] # (Auto) Eos # (Auto) Baso # (Auto) Immature Gran # (Auto) Absolute Nucleated RBC Immature Gran % Nucleated RBC % Puncture Site Arterial Line ABG pH 7.38 ABG pCO2 54 H D ABG pO2 105 D ABG HCO3 32 H ABG O2 Saturation 99 H ABG Base Excess 6 H FiO2 90 Sodium Potassium Chloride Carbon Dioxide Anion Gap BUN Creatinine Estim Creat Clear Calc eGFR BUN/Creatinine Ratio Glucose Calculated Osmolality Lactic Acid 2.5 H Calcium Corrected Calcium Total Bilirubin AST ALT Alkaline Phosphatase Troponin I 2.192 H* D Total Protein Albumin Globulin Albumin/Globulin Ratio Random Vancomycin 09/11/24 09/11/24 09/11/24 14:05 18:44 19:50 WBC RBC Hgb Hct MCV MCH MCHC RDW Std Deviation Plt Count Neut % (Auto) Lymph % (Auto) [place] % (Auto) Eos % (Auto) Baso % (Auto) Neut # (Auto) Lymph # (Auto) [place] # (Auto) Eos # (Auto) Baso # (Auto) Immature Gran # (Auto) Absolute Nucleated RBC Immature Gran % Nucleated RBC % Puncture Site ABG pH ABG pCO2 ABG pO2 ABG HCO3 ABG O2 Saturation ABG Base Excess FiO2 Sodium Potassium Chloride Carbon Dioxide Anion Gap BUN Creatinine Estim Creat Clear Calc eGFR BUN/Creatinine Ratio Glucose Calculated Osmolality Lactic Acid 2.3 H 2.5 H 2.5 H Calcium Corrected Calcium Total Bilirubin AST ALT Alkaline Phosphatase Troponin I 1.777 H* D Total Protein Albumin Globulin Albumin/Globulin Ratio Random Vancomycin 09/11/24 09/12/24 09/12/24 23:26 03:51 04:30 WBC 25.2 H RBC 3.16 L Hgb 9.1 L D Hct 27.9 L MCV 88 MCH 28.8 MCHC 32.6 RDW Std Deviation 51.7 H Plt Count 98 L D Neut % (Auto) 93 H Lymph % (Auto) 2 L [place] % (Auto) 2 Eos % (Auto) 3 Baso % (Auto) 0 Neut # (Auto) 23.4 H Lymph # (Auto) 0.5 L [place] # (Auto) 0.4 Eos # (Auto) 0.7 H Baso # (Auto) 0.1 Immature Gran # (Auto) 0.10 H Absolute Nucleated RBC 0.13 H Immature Gran % 0 Nucleated RBC % 1 H Puncture Site Arterial Line ABG pH 7.33 L ABG pCO2 57 H ABG pO2 105 ABG HCO3 30 H ABG O2 Saturation 99 H ABG Base Excess 3 FiO2 90 Sodium 139 Potassium 4.3 Chloride 101 Carbon Dioxide 28.4 Anion Gap 10 BUN 34 H Creatinine 4.3 H* D Estim Creat Clear Calc 15.0 L eGFR 13 L* BUN/Creatinine Ratio 8 L Glucose 103 Calculated Osmolality 285 Lactic Acid 2.4 H 2.8 H Calcium 8.5 Corrected Calcium 9.5 Total Bilirubin 1.6 H D AST 44 H ALT < 7 L Alkaline Phosphatase 351 H D Troponin I Total Protein 5.0 L Albumin 2.8 L Globulin 2.2 L Albumin/Globulin Ratio 1.3 Random Vancomycin 7.8 09/12/24 08:00 WBC RBC Hgb Hct MCV MCH MCHC RDW Std Deviation Plt Count Neut % (Auto) Lymph % (Auto) [place] % (Auto) Eos % (Auto) Baso % (Auto) Neut # (Auto) Lymph # (Auto) [place] # (Auto) Eos # (Auto) Baso # (Auto) Immature Gran # (Auto) Absolute Nucleated RBC Immature Gran % Nucleated RBC % Puncture Site ABG pH ABG pCO2 ABG pO2 ABG HCO3 ABG O2 Saturation ABG Base Excess FiO2 Sodium Potassium Chloride Carbon Dioxide Anion Gap BUN Creatinine Estim Creat Clear Calc eGFR BUN/Creatinine Ratio Glucose Calculated Osmolality Lactic Acid 2.5 H Calcium Corrected Calcium Total Bilirubin AST ALT Alkaline Phosphatase Troponin I Total Protein Albumin Globulin Albumin/Globulin Ratio Random Vancomycin ABG Interpretation ABG results: 09/07/24 09/09/24 09/09/24 13:21 16:34 19:07 ABG pH 7.35 7.22 L D 7.28 L ABG pCO2 47 62 H D 54 H ABG pO2 79 L 301 H D 104 D ABG HCO3 26 25 25 ABG O2 Saturation 97 101 H 98 ABG Base Excess 0 -3 -2 VBG pH 7.25 L VBG pCO2 61 H VBG pO2 47 VBG Base Excess -2 09/10/24 09/10/24 09/10/24 00:07 04:40 07:55 ABG pH 7.21 L 7.14 L* 7.23 L ABG pCO2 56 H 60 H 48 D ABG pO2 130 H D 86 D 68 L ABG HCO3 22 21 20 ABG O2 Saturation 99 H 95 93 ABG Base Excess -6 L -9 L -7 L VBG pH VBG pCO2 VBG pO2 VBG Base Excess 09/10/24 09/10/24 09/10/24 15:59 16:40 17:50 ABG pH 7.24 L 7.18 L* 7.35 D ABG pCO2 54 H 69 H D 51 H D ABG pO2 94 D 138 H D 97 D ABG HCO3 23 26 28 H ABG O2 Saturation 97 99 H 99 H ABG Base Excess -5 L -3 2 VBG pH VBG pCO2 VBG pO2 VBG Base Excess 09/11/24 09/11/24 09/11/24 04:17 08:10 13:00 ABG pH 7.47 H D 7.44 7.38 ABG pCO2 37 D 41 54 H D ABG pO2 144 H D 237 H D 105 D ABG HCO3 27 H 28 H 32 H ABG O2 Saturation 101 H 101 H 99 H ABG Base Excess 3 4 H 6 H VBG pH VBG pCO2 VBG pO2 VBG Base Excess 09/12/24 03:51 ABG pH 7.33 L ABG pCO2 57 H ABG pO2 105 ABG HCO3 30 H ABG O2 Saturation 99 H ABG Base Excess 3 VBG pH VBG pCO2 VBG pO2 VBG Base Excess Quality Measures Quality Measures VTE prophylaxis Advance care planning discussed with:: child Assessment & Plan Assessment Current Active Medications: Generic Name Dose Route Start Last Admin Trade Name Freq PRN Reason Stop Dose Admin Acetaminophen 650 mg 09/01/24 17:55 02/15/25 16:28 Acetaminophen 325 Mg Tablet PO 10/01/24 17:54 650 mg Q6H PRN Administration Fever >100.3 or pain Protocol Albuterol/Ipratropium 3 ml 09/10/24 02:00 09/12/24 06:45 Albuterol/Ipratropium (Duoneb) Rt Jessenia 3 Ml Nebu INH 10/10/24 01:59 3 ml Q4HR BRIANA Administration Amiodarone HCl 200 mg 09/11/24 13:30 09/12/24 08:56 Amiodarone Hcl 200 Mg Tablet PO 10/11/24 13:29 200 mg BID BRIANA Administration Atorvastatin Calcium 10 mg 09/02/24 09:00 09/12/24 08:56 Atorvastatin Calcium 10 Mg Tablet PO 10/02/24 08:59 10 mg QDAY BRIANA Administration Dextrose 25 ml 09/05/24 04:34 09/12/24 03:39 Dextrose 50%-Water Inj 50 Ml Syringe IV 10/05/24 04:33 25 ml Q15MIN PRN Administration BG 50-70 responsive npo pt Dextrose 50 ml 09/09/24 08:49 09/09/24 22:16 Dextrose 50%-Water Inj 50 Ml Syringe IV 10/09/24 08:48 50 ml Q15MIN PRN Administration BG <50 OR BG <70 & pt unresponsive Glucagon 1 mg 09/09/24 08:49 Glucagon Inj 1 Mg Vial IM Q15MIN PRN BG <70, and no IV access Guaifenesin 200 mg 09/05/24 21:00 09/08/24 09:36 Guaifenesin Syrup 200 Mg/10 Ml Udc PO 10/05/24 20:59 200 mg BID BRIANA Administration Protocol Heparin Sodium (Porcine) 3,000 unit 09/10/24 16:54 09/11/24 11:01 Heparin Sod Inj 1000 Unit/Ml Vial 10 Ml INDWELLCAT 09/24/24 13:00 3,000 unit PRN PRN Administration DIALYSIS Norepinephrine Bitartrate 16 mg in 250 mls @ 3.891 mls/hr 09/09/24 16:08 09/12/24 10:00 Levophed In Ns 16mg/250ml IV 10/09/24 16:07 0.44 mcg/kg/min .Q24H PRN 34.238 mls/hr PER PROTOCOL Titration Protocol 0.05 MCG/KG/MIN Piperacillin/Tazobactam/Dextrose 50 mls @ 12.5 mls/hr 09/10/24 09:00 09/12/24 08:55 Zosyn IV 09/16/24 16:37 12.5 mls/hr Q12HR BRIANA Administration Vasopressin/Sodium Chloride 20 unit in 100 mls @ 9 mls/hr 09/09/24 22:08 09/11/24 19:00 Vasostrict/Ns Ivpb IV 10/09/24 22:07 0.03 unit/min .Q11H7M PRN 9 mls/hr PER PROTOCOL Titration Protocol 0.03 UNIT/MIN Albumin Human 25 gm in 100 mls @ 100 mls/hr 09/11/24 09:20 Albuminar-25 Ivpb IV PRN PRN DIALYSIS Propofol 1,000 mg in 100 mls @ 2.49 mls/hr 09/11/24 13:12 09/12/24 04:00 Diprivan Ivpb IV 10/09/24 16:09 15 mcg/kg/min .Q24H PRN 7.47 mls/hr PER PROTOCOL Titration Protocol 5 MCG/KG/MIN Fentanyl Citrate 2,500 mcg in 250 mls @ 2.5 mls/hr 09/11/24 13:12 09/12/24 04:00 Sublimaze Inj 2,500 Mcg/250 Ml Bag IV 09/14/24 16:10 175 mcg/hr .Q24H PRN 17.5 mls/hr PER PROTOCOL Titration Protocol 25 MCG/HR Insulin Glargine 30 unit 09/08/24 09:30 09/09/24 09:11 Insulin Glargine (Lantus) 5 Unit/0.05 Ml (Per 5 Units) SC 10/08/24 09:29 30 unit QDAY BRIANA Administration Insulin Human Lispro 5 unit 09/08/24 17:30 09/09/24 18:42 Insulin Lispro (Admelog) 1 Unit/0.01 Ml Unit SC 10/08/24 17:29 Not Given TIDWM BRIANA Insulin Human Lispro 0 unit 09/10/24 00:00 09/12/24 07:28 Insulin Lispro (Admelog) 1 Unit/0.01 Ml Unit SC 10/10/24 00:00 Not Given Q6HR BRIANA Protocol Levetiracetam 500 mg 09/11/24 10:45 09/12/24 08:56 Levetiracetam Inj 100 Mg/Ml Vial 5ml IVP 10/11/24 10:44 500 mg QDAY BRIANA Administration Midodrine 10 mg 09/07/24 17:48 Midodrine 5 Mg Tablet PO 10/03/24 15:14 TID PRN MAP < 65 Ondansetron HCl 4 mg 09/01/24 17:59 09/09/24 12:56 Ondansetron Inj 2 Mg/Ml Inj 2 Ml IV 10/01/24 17:58 4 mg Q6H PRN Administration NAUSEA OR VOMITING Protocol Pantoprazole Sodium 40 mg 09/01/24 18:00 09/12/24 08:56 Pantoprazole Inj 40 Mg Vial IVP 10/01/24 17:59 40 mg QDAY BRIANA Administration Pharmacy Consult 1 each 09/10/24 17:15 Vancomycin Pharmacy To Dose 1 Each Each IV 10/10/24 17:14 QDAY PRN PROTOCOL Polyethylene Glycol 17 gm 09/05/24 09:45 09/09/24 09:10 Polyethylene Glycol 17 Gm Packet PO 10/05/24 09:44 17 gm QDAY BRIANA Administration Sennosides 1 tab 09/04/24 16:15 09/09/24 09:10 Senna/Docusate Sod 1 Tab Tablet PO 10/04/24 16:14 1 tab QDAY BRIANA Administration Protocol Sodium Chloride 3 ml 09/09/24 23:30 Sodium Chloride Rt Jessenia 0.9% 3 Ml Nebu INH 10/09/24 23:29 PRN PRN SOLN Tamsulosin HCl 0.4 mg 09/02/24 09:00 09/08/24 09:36 Tamsulosin Hcl 0.4 Mg Capsule PO 10/02/24 08:59 0.4 mg QDAY BRIANA Administration Plan Colby Beard is a 78-year-old male with a past medical history of hypertension, 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 Collado in [place]), and hyperlipidemia who was admitted for management of PD-catheter associated peritonitis. On 09/09, nick ramírez called for PEA and patient intubated and upgraded to ICU. Neurological #Sedated on mechanical ventilation - Continue fentanyl and propofol drips, RASS -4 #At risk for acute anoxic brain injury 08/29 to cardiac arrest Difficult to assess brain function since the patient is on sedation drips - Transitioned to comfort care #New-onset seizures - Transitioned to comfort care #Acute ischemic stroke with hemorrhagic conversion CT head 09/10 showed acute subacute bilateral infarcts in the occipital lobes with mild hemorrhagic conversion - Transitioned to comfort care Cardiovascular #Pulseless electrical activity, s/p resuscitation on 09/09 and 09/10 #Ventricular fibrillation, s/p cardioversion - Transitioned to comfort care #Septic shock, requiring pressors TTE 09/10 showed LVEF 55% with no significant valvular dysfunction, mild AR, mild MR - Transitioned to comfort care #Paroxysmal atrial fibrillation, paroxysmal - Transitioned to comfort care #Demand ischemia EKG 09/09 and 09/[address] elevations and ST depressions TTE 09/10 showed LVEF 55% with no significant valvular dysfunction - Transitioned to comfort care Pulmonary #Mechanically ventilated after cardiac arrest #Intubated, Day 3 Intubated following cardiac arrest 09/09 - Transitioned to comfort care #? Aspiration pneumonitis Witnessed aspiration 09/09 before code blue with right-sided infiltrated on CXR CT A/P 09/09 - significant bibasilar pneumonia - Transitioned to comfort care Gastrointestinal #? Ileus vs small bowel obstruction CT A/P on 09/08 - significant fluid-distended small bowel loops, suspicious for SBO. Underwent first of small bowel series when patient became nauseous and had episode of emesis and subsequent code blue. CT A/P on 09/10 - extensive bibasilar pneumonia, mild small bowel ileus, mild free fluid in the abdomen - no signs of SBO. - Transitioned to comfort care #Spontaneous bacterial peritonitis, resolved Peritoneal fluid analysis improved, with PMNs downtrendin,000 -> 9000 -> 500 Peritoneal fluid culture from 09/01 grew Acinetobacter baumannii that was sensitive to cefepime. Cleared by nephrology for discharge and advised to follow-up outpatient with Dr. Collado. - Transitioned to comfort care #GI prophylaxis - Transitioned to comfort care Renal #Metabolic acidosis / lactic acidosis - Transitioned to comfort care #ESRD on peritoneal dialysis Outpatient Core Checker - Transitioned to comfort care Endocrine #Type 2 diabetes mellitus, insulin-dependent A1c 9.2%. Noted to have difficult to control blood sugars and recent hypoglycemic episodes due to decreased PO intake. - Transitioned to comfort care Heme #DVT prophylaxis - Transitioned to comfort care Infectious disease #Leukocytosis #Septic shock, on pressors - Transitioned to comfort care Hospital management: Disposition: critically ill in ICU Sedation: propofol and fentanyl Pressor: levophed and vasopressin Fluids: none Diet: NPO Lines: right IJ 7fr central line 09/09, right femoral arterial line 09/09, left IJ tri-flow 13.5fr 09/10, OG tube, PIVs, ortega DVT prophylaxis: NONE due to ischemic stroke with hemorrhagic conversion GI prophylaxis: IV Protonix Code status: DNR/DNI
[2024-09-12] MEDS: SCOPOLAMINE 1 MG TDSY TOP (15:30)
[2024-09-12] MEDS: fentaNYL CIT INJ 50 mCg/ML AMP 2ML 175 MCG IV (15:36)
[2024-09-12] MEDS: MIDAZOLAM INJ 1 MG/ML VIAL 2 ML 2 MG IV (15:41)
--- NOTE | 2024-09-12 16:02 | PD.DPN ---
Documentation for date of: 09/12/24 Pronouncement Note Contributing Factors (1) Metabolic encephalopathy: (2) CVA (cerebral vascular accident): (3) Chronic renal failure: (4) Peritonitis: Additional Data Attending physician: Jaya Rogel MD
--- NOTE | 2024-09-12 16:03 | DES_ITS ---
<Statement entered by Adalberto Lemus MD - 09/14/24 10:48> TOTAL TIME: 45MINUTES ON DIRECT MEDICAL CARE, MANAGEMENT - COORDINATION AND COUNSELING > 50% OF TOTAL TIME I saw and evaluated the patient. I reviewed the resident?s note and agree with findings and plan as documented in the resident?s note. Patient comfortably on comfort care order sets per family wishes. Comfort care order set was discussed in detail with lead nurse, bedside nurse, and resident team. 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 Collado in [place]), and hyperlipidemia who presented to [place] with two days of fever, chills, and non-bloody diarrhea on 09/01. Associated generalized abdominal pain that was sudden onset and cramping in nature. No hematemesis, hematochezia or melena. In ED, patient afebrile and WBC wnl, but pleural fluid analysis from PD catheter showed > 14,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 Admitted for management of PD-catheter associated peritonitis and started on cefazolin and cefepime administered via PD catheter. Asphalt Spreader (Dr. Sinclair) was consulted. Throughout hospital course, peritoneal fluid analysis showed significant improvement in peritonitis and eventually resolved. However, patient abdomen was noted to become more distended and patient endorsed bloating though he had had a bowel movement while admitted. CT A/P showed significant fluid-distended small bowel loops. Gastrografin small bowel series was ordered. After Gastrografin was given, patient became acutely nauseous and had an episode of emesis. SpO2 dropped and WEB APPLICATIONS DEVELOPER was called at 1540 on 09/09. En route, code blue was called as patient became unresponsive and was without a pulse. Chest compressions initiated and patient monitor showed PEA. Had 3 rounds of epinephrine, 2 ampules of HCO3, 1 ampule of CaCl and VF was seen on monitor. Received 1 shock of 150 J and ROSC was obtained. Intubated by Dr. Hernandez and subsequently upgraded to ICU for mechanical ventilation with pressors. Following day, patient remained sedated on propofol and fentanyl and was supported on high amounts of levophed and vasopressin. CT head ordered for rapid response/code blue was obtained and showed acute/subacute infarct of bilateral occipital lobes with hemorrhagic conversion. Repeat CT A/P showed extensive bibasilar pneumonia, mild free fluid in the abdomen, and mild small bowel ileus - no signs of surgical abdomen. Troponins uptrending since code blue on 09/09 and repeat EKG showed no significant ST changes. Left IJ tri-flow placed for hemodialysis, however after 5 minutes of dialysis CODE BLUE was activated that 1629. MD was alerted to SBPs in the 80s after 5 minutes of running dialysis. Pt was already on levophed 1 mcg/kg/min and 0.03 units/min vasopressin. Levophed went immediately up to 2 mcg/kg/min and Vasopressin up to 0.05 units/min without any improvement. After 20-30 seconds, SBPs was in the 30s without any pulse. CODE BLUE was immediately activated. Chest compressions started and found to be in PEA arrest. 3 rounds of CPR were done. Total 3 g of epi, 1 amp of bicarb, 1 g of calcium chloride, and 400 cc of LR. ROSC was achieved at 1636. Bedside US was completed and showed good contractility. Fingerstick glucose was within normal limits. STAT ABG, lactate, troponins, EKG, CXR, CBC, and CMP were completed. 3 additional amps of bicarb were given. Dialysis is being HELD at this time. Family updated on clinical condition and prognosis. Code status changed to DNR in the PM. On 09/12, repeat CT head showed stable acute/subacute infarct with noted hemorrhagic conversion. Then in early afternoon, decision was made to transition to comfort care. At 3:57, patient was pronounced with family members at bedside. Additional Data Confirmation of as documented by pronouncing clinician: no pulse, no respirations, no heart sounds and pupils fixed and dilated Family: at bedside and contacted Attending physician: Jaya Rogel MD Was code activated?: No Hospice patient?: No Visit Providers Provider Primary care physician: Physician No Primary/Family Consults: 09/01/24 17:51 Consult to Nephrology Stat Comment: Consulting Provider: Aletha Sinclair 09/01/24 20:53 Referral Physical Therapy Routine Comment: Physician Instructions: Referral Registered Dietitian Routine Comment: Referral Respiratory Therapy Routine Comment: 09/06/24 07:24 Referral Registered Dietitian Routine Comment: 09/08/24 17:28 Consult to Neurology / Tele-Neurology Routine Comment: AMS Consulting Provider: Otis Melendez 09/09/24 16:29 Consult to [employer] English Teacher Stat Comment: Consulting Provider: Adalberto Lemus Diagnosis PCOD Cause of : Cardiopulmonary arrest Contributing Factors (1) Metabolic encephalopathy: (2) CVA (cerebral vascular accident): (3) Chronic renal failure: (4) Peritonitis: Discharge Plan Plan Patient Disposition: Prescriptions/Referrals Prescriptions/Med Rec: No Action atorvastatin 10 mg Tablet 10 mg PO QDAY insulin aspart U-100 [Novolog U-100 Insulin aspart] 100 unit/mL Solution 1 sliding scale dose SUBCUT USEASDIRECTD gabapentin 300 mg Capsule 300 mg PO TID omeprazole 20 mg Capsule,Delayed Release(Dr/Ec) 40 mg PO QDAY calcium acetate(phosphat bind) 667 mg capsule 1,334 mg PO TIDWMEAL Patient Comments: take 2 capsules by mouth WITH MEALS AND 1 CAPSULE WITH SNACKS tramadol 50 mg tablet 50 mg PO Q12H tamsulosin [Flomax] 0.4 mg capsule 0.4 mg PO QDAY multi-vitamin no minerals 60 - 150 tab PO DAILY carvedilol 6.25 mg tablet 6.25 mg PO Q12H Rx Instructions: must administer with a meal/food losartan [Cozaar] 50 mg tablet 50 mg PO QDAY Referrals: No Primary/Family,Physician [Primary Care Provider] - Patient/Caregiver Discharge Instructions Print Language: Green[place]ic
--- NOTE | 2024-09-12 18:25 | DES_ITS ---
<Statement entered by Adalberto Lemus MD - 09/14/24 10:49> TOTAL TIME: 45MINUTES ON DIRECT MEDICAL CARE, MANAGEMENT - COORDINATION AND COUNSELING > 50% OF TOTAL TIME I saw and evaluated the patient. I reviewed the resident?s note and agree with findings and plan as documented in the resident?s note. <Statement entered by Maci Sanchez DO - 09/13/24 06:51> I agree with the following note. Patient had undergone 2 cardiac arrests and had multiorgan failure. Comfort care was initiated on 09/13/23. I pronounced time of at 1538 on 09/12/23. RT, nursing staff, and family were present at bedside. Maci Sanchez, PGY4 residential support worker Documentation for date of: 09/12/24 Pronouncement Note Date and Time of Date of : 09/12/24 Time of : 15:57 PCOD Preliminary cause of : Cardiopulmonary arrest Contributing Factors (1) Metabolic encephalopathy: (2) CVA (cerebral vascular accident): (3) Chronic renal failure: (4) Peritonitis: Summary Additional details: I was called to patient's bedside to pronounce that Colby Beard, 78-year-old male, has . No spontaneous movements present. No response to verbal or tactile stimuli. Pupils mid-dilated, fixed, and unresponsive to light. No breath sounds appreciated over either lung carmichael. No heart sounds auscultated over entire precordium. Patient pronounced at 3:57 PM on 09/12/2024. Confirmed and witnessed by nurse. Family was notified and condolences were given. Additional Data Confirmation of : no pulse, no respirations, no heart sounds and pupils fixed and dilated Family: at bedside and contacted Attending physician: Ambrosio Lemus MD Was code activated?: No
--- NOTE | 2024-09-13 09:33 | PC.SS ---
SS received a call from [facility] in regards to pt, SS accessed chart to get update. SS updated [facility], pt has on 09/12/24
== END 2024-09-12 15:57 | disposition expired | DRG 919 ==
LOC: SERX 17:29 → SERHOLD 09-02 06:18 → S3SX 09-02 06:18 → S2SX 09-09 16:05
PROVIDERS: Internal Medicine; Internal Medicine Nephrology; Student in an Organized Health Care Education/Training Program; Admitting Provider Student in an Organized Health Care Education/Training Program; Emergency Provider Emergency Medicine; Visit Provider Internal Medicine
DX: T85.71XA Infection and inflammatory reaction due to peritoneal dialysis catheter, initial encounter (principal); A41.54 Sepsis due to Acinetobacter baumannii; N18.6 End stage renal disease; G93.41 Metabolic encephalopathy; J18.9 Pneumonia, unspecified organism; J96.01 Acute respiratory failure with hypoxia; J69.0 Pneumonitis due to inhalation of food and vomit; K65.2 Spontaneous bacterial peritonitis; R65.21 Severe sepsis with septic shock; I61.9 Nontraumatic intracerebral hemorrhage, unspecified; I12.0 Hypertensive chronic kidney disease with stage 5 chronic kidney disease or end stage renal disease; E87.1 Hypo-osmolality and hyponatremia; K56.7 Ileus, unspecified; R18.8 Other ascites; F05 Delirium due to known physiological condition; E87.20 Acidosis, unspecified; I24.89 Other forms of acute ischemic heart disease; E11.22 Type 2 diabetes mellitus with diabetic chronic kidney disease; E11.649 Type 2 diabetes mellitus with hypoglycemia without coma; E11.319 Type 2 diabetes mellitus with unspecified diabetic retinopathy without macular edema; D63.1 Anemia in chronic kidney disease; H54.8 Legal blindness, as defined in USA; I46.8 Cardiac arrest due to other underlying condition; E11.40 Type 2 diabetes mellitus with diabetic neuropathy, unspecified; Z99.2 Dependence on renal dialysis; K74.60 Unspecified cirrhosis of liver; R56.9 Unspecified convulsions; E78.5 Hyperlipidemia, unspecified; G47.00 Insomnia, unspecified; I48.0 Paroxysmal atrial fibrillation; Z79.4 Long term (current) use of insulin; Z66 Do not resuscitate; Z51.5 Encounter for palliative care; Z79.899 Other long term (current) drug therapy; T36.1X5A Adverse effect of cephalosporins and other beta-lactam antibiotics, initial encounter; Y84.1 Kidney dialysis as the cause of abnormal reaction of the patient, or of later complication, without mention of misadventure at the time of the procedure
CPT/HCPCS: 36415; 36600; 70450; 71045; 74018; 74176; 74250; 80048; 80053; 80061; 80069; 80074; 80202; 81001; 82042; 82140; 82150; 82803; 82945; 83036; 83605; 83615; 83735; 84100; 84132; 84145; 84157; 84443; 84484; 85025; 85610; 85730; 86703; 86706; 87040; 87070; 87075; 87077; 87081; 87186; 87205; 87400; 87811; 89051; 92950; 93005; 93225; 93306; 94002; 94003; 94640; 94664; 96365; 96367; 97162; 99285; A4216; A9270; J0283; J0690; J0692; J0696; J1643; J1815; J1953; J2060; J2250; J2405; J2470; J2543; J2598; J2704; J3010; J3370; J3475; J3480; J3490; J7040; J7050; J7120; J7121; P9047; Z7610